=== PATIENT | female | born 1950 | race Caucasian/White ===

== ENCOUNTER 2024-11-16 19:28 | Emergency (ER) | payer MEDICARE, SELFPAY ==
[2024-11-16] VITALS (12 sets, daily range): BP systolic 58–113; BP diastolic 35–62; PULSE 0–103; RESP 18; TEMP 35.9; O2SAT 90–100
--- NOTE | ~2024-11-16 | CT_ITS ---
EXAMINATION: CT brain wo con DATE: 11/16/2024 21:47 INDICATION: CARDIAC ARREST . TECHNIQUE: Computed tomography (CT) of the head was performed without intravenous contrast. The mA wa s adjusted according to patient size. Iterative reconstruction technique was employed. The dose-lengt h product was 605.33 mGy-cm. COMPARISON: None. FINDINGS: No acute intracranial hemorrhage or extra-axial fluid collection. No hydrocephalus, mass, or herniation. No acute ischemic infarct. Unremarkable dural venous sinus attenuation. No acute osseous abnormality. The aerated spaces are clear. Atherosclerotic intracranial calcifications. Mild chronic white matter change. IMPRESSION: No acute intracranial process. Reviewed, dictated and finalized at location K. SELING PSYCHOLOGIST
--- NOTE | ~2024-11-16 | CT_ITS ---
EXAMINATION: CTA chest PE protocol DATE: 11/16/2024 21:47 INDICATION: CARDIAC ARREST TECHNIQUE: Computed tomography angiography (CTA) of the chest was performed with 100 mL Omnipaque-350 intravenous contrast timed to evaluate the pulmonary arteries. Coronal maximum intensity projection 3D-reconstructions were created by the technologist. The dose-length product (DLP) was 456.55 mGy-cm. Automated exposure control and iterative reconstruction technique were employed. COMPARISON: X-ray chest, same date. FINDINGS: Lung parenchyma and airways: Interlobular septal thickening. Patchy segmental areas of groundglass an d consolidative opacities in the dependent lobes. Pleura: Unremarkable. Thoracic inlet, axillae and chest wall: Endotracheal tube, terminating 2.5 cm above the giovanni. Thoracic aorta: No significant dilation. No dissection. Mediastinum: Diffuse esophageal wall thickening. Heart and pericardium: Normal. RV LV ratio 1.2. Coronary artery calcifications: Mild. Upper abdomen: Perihepatic fluid. Pneumoperitoneum. Pneumobilia. Subdiaphragmatic NG tube, tip not in the [id number]. Bones: Nondisplaced sternal body fracture. Multiple bilateral nondisplaced or minimally displaced, mi ldly angulated anterior lateral rib fractures. Pulmonary arteries: Study quality: Adequate. Small nonocclusive subsegmental right lower lobe emboli. IMPRESSION: Multiple small subsegmental right lower lobe pulmonary emboli. Small clot burden. RV LV ratio of 1.2 indicating an element of right heart strain. Moderate pulmonary edema with bilateral dependent atelectasis. Infection/aspiration not excluded. Diffuse esophageal wall thickening. Nondisplaced sternal body fracture. Multiple bilateral anterolateral rib fractures. Pneumoperitoneum, pneumobilia, and perihepatic fluid, please refer to the report on the concurrent CT abdomen and pelvis for additional details. Reviewed, dictated and finalized at location K. ICER MACHINE IMPRESSION: Multiple small subsegmental right lower lobe pulmonary emboli. Small clot burde n. RV LV ratio of 1.2 indicating an element of right heart strain. Moderate pulmonary edema with bilateral dependent atelectasis. Infection/aspira tion not excluded. Diffuse esophageal wall thickening. Nondisplaced sternal body fracture. Multiple bilateral anterolateral rib fractu res. Pneumoperitoneum, pneumobilia, and perihepatic fluid, please refer to the repor t on the concurrent CT abdomen and pelvis for additional details.
--- NOTE | ~2024-11-16 | XR_ITS ---
EXAMINATION: XR chest ET placement Exam Date/Time: 11/16/2024 19:52 AIRPLANE TESTER HISTORY: ET PLACEMENT Comparison: X-ray RIBS 05/13/2019; two-view chest 11/25/2018. RESULT: Lines, tubes, and devices: Endotracheal tube, terminating 3.1 cm above the giovanni. Subdiaphragmatic NG tube, tip projects out of the [id number]. Cholecystectomy clips. Right subclavian central line, tip at the cavoatrial junction. Lungs and pleura: Diffuse reticular opacities with patchy groundglass opacities and indistinct vesse ls. Cardiomediastinal silhouette: Stable. Other: No acute osseous or upper abdominal finding. IMPRESSION: Endotracheal tube terminates 3.1 cm above the giovanni. Subdiaphragmatic NG tube. Right subclavian cent ral line, in good position. Moderate interstitial edema. Reviewed, dictated and finalized at location K. LANE TESTER IMPRESSION: Endotracheal tube terminates 3.1 cm above the giovanni. Subdiaphragmatic NG tube. Right subclavian central line, in good position. Moderate interstitial edema.
--- NOTE | ~2024-11-16 | CT_ITS ---
EXAMINATION: CT abdomen pelvis w con DATE: 11/16/2024 22:00 INDICATION: gastric content abnormal TECHNIQUE: Computed tomography (CT) of the abdomen and pelvis was performed with 100 mL Omnipaque-350 intravenous contrast. Automated exposure control and iterative reconstruction technique were employe d. The dose-length product was 588.81 mGy-cm. COMPARISON: CT abdomen 05/16/2004. FINDINGS: Lower thorax: Moderate edema/atelectasis. Liver: Small volume perihepatic fluid. Irregular peripheral hypodensities along the superficial right liver lobe measuring up to 11 mm in thickness. Biliary/Gallbladder: Gallbladder is absent. No bile duct dilation. Pancreas: No mass or duct dilation. Spleen: Diffusely hypoenhancing spleen. Adrenals:No mass. Kidneys: No suspicious mass, obstructing stone, or hydronephrosis. Simple left renal cyst. Multiple h ypodensities that are too small to characterize but most likely represent cysts. GI tract: NG tube terminating in the gastric body. Proximal small bowel dilation without focal transi tion point. Pneumatosis. Interloop fluid. Portal venous gas. Diffusely decreased small bowel wall enh ancement. Focal defect in the wall of the distal sigmoid, with spillage of fecal content into the per itoneal cavity (image 134/222) Normal appendix. Diverticulosis without diverticulitis. Mesentery/Peritoneum: Moderate volume pneumoperitoneum. Fecal material and fluid within the peritonea l cavity. Retroperitoneum: No mass. Atherosclerotic calcifications of intra-abdominal arterial vessels. Pelvis: Urinary bladder decompressed by a Granados catheter.. Soft Tissues: Small periumbilical anterior abdominal wall hernia containing mesenteric fat and focal gas. Bones: Multiple bilateral anterolateral rib fractures. IMPRESSION: Grade 2 liver lacerations along the anterior surface of the right liver lobe, presumably secondary to CPR and adjacent rib fractures, with small volume adjacent perihepatic hemorrhage. Diffuse splenic hypoenhancement, may reflect a component of diffuse ischemia or infarction. Diffuse small bowel ischemia. Distal sigmoid rupture with spillage of feculent content into the peritoneal cavity and moderate pneu moperitoneum. Reviewed, dictated and finalized at location [facility]. [facility] IMPRESSION: Grade 2 liver lacerations along the anterior surface of the right liver lobe, p resumably secondary to CPR and adjacent rib fractures, with small volume adjace nt perihepatic hemorrhage. Diffuse splenic hypoenhancement, may reflect a component of diffuse ischemia or infarction. Diffuse small bowel ischemia. Distal sigmoid rupture with spillage of feculent content into the peritoneal ca vity and moderate pneumoperitoneum.
--- NOTE | 2024-11-16 20:04 | ECG_ITS ---
Test Date: 2024-11-16 19:54:45 Measurements Intervals [place] Rate: 137 P: 0 MO: 0 QRS: -77 QRSD: 142 T: 79 QT: 322 QTc: 488 Interpretive Statements ATRIAL FIBRILLATION WITH RAPID VENTRICULAR RESPONSE LEFT AXIS DEVIATION RIGHT BUNDLE BRANCH BLOCK CONSIDER INFERIOR INFARCT, AGE INDETERMINATE CONSIDER LATERAL INFARCT, AGE INDETERMINATE ABNORMAL ECG No previous ECG available for comparison Electronically Signed On 11-17-2024 06:46:37 EMPLOYEE PLACEMENT SPECIALIST by Cayetano Lake D.O.
[2024-11-16] MEDS: SODIUM CHLORIDE 0.9% IV 1,000 ML 999 ML IV CONT ×2 (20:10→23:09)
[2024-11-16 20:16] LABS: Alveolar/Arterial O2 Gradient 542.3 mmHg; Base Excess ABG -26.2 mEq/l (+/-2.0); Carboxyhemoglobin 3.3 % THb (0-2.0); Fractional Inspired Oxygen 100 %; HCO3 ABG 6.3 mEq/l (22.0-26.0); Oxygen Content ABG 13.6 %vol (16.0-22.0); Oxygen Saturation ABG 95.9 % (95.0-100.0); Oxyhemoglobin 90.9 % THb (90.0-100.0); PO2 ABG 134.7 mmHg (80.0-100.0); PO2 FiO2 Ratio Arterial Blood 1.35 %; Reduced Hemoglobin 5.8 %THb (0-5.0); Total Hemoglobin 10.4 g/dL (12.0-18.0)
[2024-11-16 20:18] LABS: Arterial Blood Gas Vent Mode CMV; Arterial Blood Gas Ventilator rate 20 /MIN; Device VENTILATOR; Modified Allen's Test Pass; Site Drawn RIGHT RADIAL; pH ABG 6.861 (7.350-7.450)
[2024-11-16 20:19] LABS: Arterial Blood Gas PEEP 5 cmH2O; Arterial Blood Gas Tidal Volume 400 ml
[2024-11-16 20:22] LABS: Hematocrit 37.4 % (37.0-47.0); Hemoglobin 11.3 g/dL (12.0-15.0); Mean Corpuscular HGB Conc 30.2 g/dl (32-36); Mean Corpuscular Hemoglobin 33.2 pg (26-34); Mean Platelet Volume 10.2 fl (7.4-10.4); Platelet Count Result 143 k/mm3 (150-375); Red Cell Distribution Width 14.4 % (11.5-14.5); White Blood Count 10.3 K/mm3 (4.5-10.0)
[2024-11-16 20:35] LABS: INR 1.6; Prothrombin Time 19.6 Seconds (11.1-14.7)
[2024-11-16 20:37] LABS: Partial Thromboplastin Time 68.6 Seconds (22.3-36.8)
[2024-11-16 20:51] LABS: Alanine Aminotransferase 47 U/L (6-35); Albumin Level 2.3 g/dL (3.5-5.1); Alkaline Phosphatase 80 U/L (38-126); Anion Gap 35 mmol/L (4-12); Aspartate Amino Transferase 110 U/L (14-36); Blood Urea Nitrogen 36 mg/dL (7-17); Carbon Dioxide 13 mmol/L (22-30); Chloride 93 mmol/L (98-107); Estimated Glomerular Filt Rate 22; Glucose 622 mg/dL (65-110); Lipase 24 U/L (23-300); Potassium 6.3 mmol/L (3.4-5.0); Sodium 141 mmol/L (137-145)
[2024-11-16 20:54] LABS: Band Neutrophils Percent 29 % (0-6); Lymphocytes Absolute Manual 4.01 K/mm3 (1.1-4.5); Metamyelocytes Percent 4 %; Monocytes Absolute Manual 0.51 K/mm3 (0.1-0.90); Monocytes Percent Manual 5 % (3-9); Myelocytes Percent 2 %; Neutrophils Absolute Manual 5.15 K/mm3 (1.7-7.2); Neutrophils Percent Manual 21 % (46-73); Nucleated Red Blood Cells 3 %; Platelet Estimate Slightly Decreased (Adequate); Total Cells Counted 100
[2024-11-16 20:55] LABS: Hypochromasia 1+; Schistocytes None Seen
[2024-11-16 20:57] LABS: Troponin I 0.176 ng/mL (0.000-0.034)
--- NOTE | 2024-11-16 21:02 | ED.CPR ---
HPI - CPR General Chief Complaint: Cardiac Arrest/CPR Stated Complaint: cardiac arrest Time Seen by Provider: 11/16/24 20:52 History of Present Illness HPI narrative: 74-year-old female with a past medical history including lupus, hypertension. Patient presents in cardiac arrest. Witnessed cardiac arrest as family members were calling EMS for difficulty in breathing, generalized malaise, decreased appetite some nauseousness throughout the day. EMS arrived and patient was conversing with them and then during transition to the stretcher she had lost pulses and consciousness. Patient arrives approximately 5 minutes after initiation of CPR with EMS transit. Patient was placed in the room 8 for medical resuscitation at this time. Family members arrive after an hour and a half for collateral information and informed me that she has not been feeling well these past few days, having flu-like illness and decreased oral intake and appetite. Patient's complaint of shortness of breath today. No history of DVT or PE, no history of cardiac stents or cardiac events to the family's knowledge. They do not have her medication list and she has never been to this facility before. Review of Systems Review of Systems: ROS unobtainable: Yes unobtainable due to medical condition Exam Narrative: GENERAL: Comatose HEAD: [Normocephalic, atraumatic.] EYES: Pupils 3 mm, fixed, conjunctival pallor noted ENT: Oropharynx with diffuse vomitus, dark coffee-ground/brown material. CHEST: Coarse breath sounds with BVM, no spontaneous respiratory effort HEART: No pulse, cold extremities ABDOMEN: [Soft, nondistended] EXTREMITIES: Normal range of motion. [No edema.] SKIN: Cool extremities with mottling to the skin and dusky fingers NEURO: GCS 3 Course Vital Signs Vital signs: Vital Signs Pulse Oximetry 90 11/16/24 19:30 Oxygen Delivery Bag Valve Mask 11/16/24 19:30 Temperature 35.9 C L 11/16/24 22:48 Pulse Rate 0 L 11/17/24 00:06 Respiratory Rate 18 11/16/24 22:48 Blood Pressure 94/59 L 11/16/24 23:00 Pulse Oximetry 0 L 11/17/24 00:09 Oxygen Delivery Room Air 11/17/24 00:09 Procedures ABG Interpretation ABG Interpretation 1: ABG Results: PH 6.8, pCO2 36, bicarb 6.3, PaO2 of 134. Final interpretation metabolic acidosis, and efficient compensation with respiratory drive Interpretation: metabolic acidosis Arterial Line Arterial line #1: Date of Arterial Line: 11/16/24 Time of Arterial Line: 20:35 Arterial Line Location: radial and right Perfomed Emergently - Given emergent patient conditions, temporal constraints may have precluded informed consent: Yes Time Out Performed: Yes Size (Gauge): 20 Technique Used: direct puncture technique Post-Procedure: line sutured into place and dry sterile dressing placed Patient Tolerated Procedure: well and no complications Complications: none Central Line Placement Right SC: Central Line Date: 11/16/24 Central Line Time: 19:35 Performed Emergently - Given emergent patient condition, temporal constraints may have precluded informed consent.: Yes Time Out Performed: Yes Patient Placed on Monitor/Pulse Ox: Yes Max. Sterile Barrier Technique: hand hygiene Central Line Prep: 2% chlorhexidine scrub Emergently Placed, Full Sterile: prep not done Technique: seldinger Local Anesthetic: none Ultrasound Used for Placement: No Central Line Lumen Inserted: triple Post Procedure: sutured in place, good blood return, all ports aspirated, flushed, capped and sterile dressing applied Post Procedure X-Ray: tip of catheter in good position and no pneumothorax seen Patient Tolerated Procedure: well and no complications Complications: none FAST Exam FAST Exam 1: Fast Exam Date: 11/16/24 Fast Exam Time: 20:40 Fluid in Morison's pouch: No Fluid in Splenorenal Junction: No Fluid around bladder, Transverse view: No Fluid around bladder, Sagittal view: No Fluid in Pericardial Sac: Yes (mild) Gross Wall Motion Abnormality: Yes (Diffuse hypokinetics) Study normal for this patient: No Images saved for further review: No Intubation Intubation #1: Intubation Date: 11/16/24 Intubation Time: 19:25 Time out performed: Yes sedative: none Mg Given: 0 Mg Given: 0 Laryngoscope: fiber optic video scope Tube Size (cm): 7.5 Method of Intubation: orotracheal Number of Attempts: 1 Tube Secured Depth (cm): 21 Tube Secured Location: lips Tube Placement Confirmation: visualized tube passing through cords, equal breath sounds bilaterally, no breath sounds over epigastrium and confirmation by capnometry Patient Tolerated Procedure: well and no complications Intubation Complications: none Additional Comments: Patient had gross amounts of vomitus in the airway and aspirate. Salad technique utilized for decompression of the oropharynx and stomach contents with return of greater than 500 dark coffee-ground looking material/vomitus from both the esophagus and in the trachea. Successful intubation after 1st pass success after visualization achieved. IO Left Tibia: IO Date: 11/16/24 IO Time: 19:30 Time Out Performed: Yes Local Anesthetic: none IO Instrument Used to Penetrate the Cortex: battery powered IO drill Post Procedure: aspirated marrow, easily flushes and secured in place Patient Tolerated Procedure: well and no complications Complications: none Right Tibia: IO Date: 11/16/24 IO Time: 19:28 Time Out Performed: Yes Local Anesthetic: none IO Instrument Used to Penetrate the Cortex: battery powered IO drill Post Procedure: easily flushes and secured in place Patient Tolerated Procedure: other (Dislodged and malfunctioning after initial flush) Complications: non-functional line Additional Comments: Line removed and left side IO placed MDM - Cardiac Arrest/CPR MDM Narrative Medical decision making narrative: 74-year-old female with history of hypertension and lupus presenting in cardiac arrest. Area was established with 1st pass success after diffuse vomitus is noted the posterior oropharynx, patient is in asystole and initial rhythm per EMS was PE a. No medications administered in route. Patient arrived at 7:24 p.m., airway secured at 7:25 p.m., IV access was difficult to obtain, multiple IO attempts and then final placement to a left tibial IO with epinephrine infused at 7:30 p.m.. Bicarbonate infused 193. First pulse check shows PE. Central line placed in the right subclavian vessel, 2 additional rounds of epinephrine and high quality CPR shows pulseless electrical activity followed by asystole on repeat check. Two rounds of bicarbonate infusion were placed an additional 2 rounds of epinephrine followed by serial pulse check showing asystole. Patient achieved Rosc at 7:50 p.m. after approximately 28 minutes of continuous CPR from the time of witnessed cardiac arrest via EMS. Initial blood pressure of 101/62, tachycardia in the 130s with sinus tachycardia versus atrial fibrillation on the monitor and EKG. No elevations in the ST segments or concern for acute STEMI. Patient's blood pressure began down trending into the low 60 systolic followed by 40 systolic, norepinephrine was started on max dose of 30 micrograms/minute followed by initiation of push dose epinephrine a total of and 1 mg serially with improvement in blood pressure into the upper 80s systolic. ABG obtained at this time shows severe metabolic acidosis the pH is 6.8 likely indicate of of severe metabolic derangements and lactic acidosis and profound hypoxemia and down time. Also explains why multiple vasopressors are not working at this time. Arterial line placed into the right radial artery, bicarb infusion started after 5 total pushes of bicarbonate with improvement in blood pressure into the low 100 systolic range with maps of 65. Currently on max dose norepinephrine, on vasopressor 0.03 and epinephrine going at 10 micrograms/minute. Patient had received 2 L of normal saline. Antibiotics started to cover aspiration and potential pneumonia including Rocephin and doxycycline. CTA of the head and CT angiography of the chest was ordered for delineation of potential causes to her cardiac arrest. X-ray was called to bedside and I independently reviewed the x-ray to assess for line placement and pulmonary status. She has a successfully placed subclavian vessel line in the right subclavian, appropriately placed endotracheal tube with giovanni approximately 3 cm distal to the tip, appropriate OG tube placed in the stomach. I spoke to multiple family members in the family waiting room, spent greater than 20 minutes with them discussing and informing them of patient's presentation, current status and grave prognosis as well as currently being on maximal support vasopressors and vent. Nurses report the patient is starting to wake up slightly so fentanyl infusion was started for sedation while workup underway. ICU staff has been contacted and made aware of the impending admission pending completion of workup. Patient's workup shows a leukocytosis of 10.3, anemia of 11.3, platelet 143. No baseline for comparison blood gas shows severe metabolic acidosis with a pH 6.8. Electrolyte panel shows renal failure with a BUN of 35 creatinine 2.4, potassium 4.6, glucose of 370, ALT and AST elevated. Elevated troponin 0.176 likely demand ischemia rather than occlusive ME. CT of the head shows no acute intracranial process. CTA shows subsegmental right lower lobe pulmonary emboli and small clot burden with elevated heart strain. Pulmonary edema, aspiration, esophagitis, sternal body fracture and multiple bilateral anterior rib fractures consistent with the CPR. Pneumoperitoneum pneumobilia as well as perihepatic fluid seen. Radiologist called me and I discussed the CT abdomen pelvis results with them over the phone. She has a grade 2 liver laceration with blood volume in the abdomen associated with perihepatic hemorrhage. Diffuse splenic hypoattenuation likely diffuse ischemia and infarct, diffuse small-bowel ischemia, distal sigmoid rupture with spillage of fecal content into the peritoneal cavity with pneumoperitoneum. Based on the discussion had with the radiologist the ischemia appears old and likely the precipitating factor that led to her presentation with likely profound sepsis from intra-abdominal infection and bowel content. I reached out to the family members who had since left the hospital to go home. I had extensive discussions with them over the phone to come back to the hospital as we have to have luis f discussions on goals of care at this juncture. Additional family members have since presented I spoke to the son, daughter, granddaughter and siblings. I discussed the CT findings as well as her clinical examination is status presently. Patient is on maximum dose of vasopressors of epinephrine, norepinephrine, vasopressin and also receiving fluids and antibiotics as well as a bicarbonate infusion. She is on mechanical ventilation and comatose. Based on patient's CT imaging, clinical assessment, and extensive injuries, continued aggressive care is deemed futile at this juncture. I relayed this to the family and had luis f discussions about goals of care. They wish for patient not to suffer any further and agreeable for withdrawal of care at this time. Respiratory therapy was called to bedside, nursing staff was called to bedside, family members have joined us and wished to proceed with terminal extubation and wean. Patient was given aliquots of 5 mg doses of morphine and 2 mg aliquots doses of Ativan as well as glycopyrrolate. Drips stopped. ETT removed and pt placed on nasal cannula. Patient's time of 12:09am with family members at bedside. Hydrochloric Acid Operator was called, PCP was attempted to be reached for certificate signing, home was selected. Medical Records Attestation: I reviewed the patient's medical records. Lab Data Attestation: I reviewed the patient's lab results. 11/16/24 20:08 11/16/24 20:57 Labs: Lab Results 11/16/24 11/16/24 11/16/24 Range/Units 20:08 20:13 20:57 WBC 10.3 H (4.5-10.0) K/mm3 RBC 3.40 L (4.2-5.4) M/mm3 Hgb 11.3 L (12.0-15.0) g/dL Hct 37.4 (37.0-47.0) % MCV 110.0 H (80-100) fl MCH 33.2 (26-34) pg MCHC 30.2 L (32-36) g/dl RDW 14.4 (11.5-14.5) % Plt Count 143 L (150-375) k/mm3 MPV 10.2 (7.4-10.4) fl Immature Gran % (Auto) Not Reportable Neut % (Auto) Not Reportable Lymph % (Auto) Not Reportable Ritchie % (Auto) Not Reportable Eos % (Auto) Not Reportable Baso % (Auto) Not Reportable Lymph # (Auto) Not Reportable Ritchie # (Auto) Not Reportable Eos # (Auto) Not Reportable Baso # (Auto) Not Reportable Abs Immat Gran (auto) Not Reportable Absolute Neuts (auto) Not Reportable Absolute Nucleated RBC Not Reportable Total Counted 100 Neutrophils % (Manual) 21 L (46-73) % Band Neutrophils % 29 H (0-6) % Lymphocytes % (Manual) 39.0 (18-44) % Monocytes % (Manual) 5 (3-9) % Metamyelocytes % 4 % Myelocytes % 2 % Nucleated RBC % Not Reportable Abs Neuts (Manual) 5.15 (1.7-7.2) K/mm3 Abs Lymphs (Manual) 4.01 (1.1-4.5) K/mm3 Abs Monocytes (Manual) 0.51 (0.1-0.90) K/mm3 Nucleated RBCs 3 % Platelet Estimate Slightly decreased (Adequate) Hypochromasia 1+ Schistocytes None seen PT 19.6 H (11.1-14.7) Seconds INR 1.6 APTT 68.6 H (22.3-36.8) Seconds Methemoglobin 0.0 (0-1.5) %THb Minute Volume Not Reportable Vent Mode Cmv Tidal Volume 400 ml PEEP 5 cmH2O Peak Inspir Pressure Not Reportable Pressure Support Not Reportable Sodium 141 144 (137-145) mmol/L Potassium 6.3 H* 4.6 (3.4-5.0) mmol/L Chloride 93 L 99 (98-107) mmol/L Carbon Dioxide 13 L 10 L (22-30) mmol/L Anion Gap 35 H 35 H (4-12) mmol/L BUN 36 H 35 H (7-17) mg/dL Creatinine 2.17 H 2.40 H (0.7-1.0) mg/dL Estim Creat Clear Calc Not Reportable Not Reportable Estimated GFR 22 L 20 L (59 - ) Glucose 622 H* 370 H (65-110) mg/dL Calcium 8.0 L 6.8 L (8.4-10.2) mg/dL Total Bilirubin 1.0 0.9 (0.2-1.3) mg/dL AST 110 H 873 H (14-36) U/L ALT 47 H 273 H (6-35) U/L Alkaline Phosphatase 80 82 (38-126) U/L Troponin I 0.176 H* (0.000-0.034) ng/mL Total Protein 5.0 L 4.0 L (6.3-8.2) g/dL Albumin 2.3 L 1.8 L (3.5-5.1) g/dL Lipase 24 (23-300) U/L Blood Type A Positive Antibody Screen Negative ABG Data ABG results: 11/16/24 20:13 Puncture Site Right radial ABG pH 6.861 L* ABG pCO2 36.0 ABG pO2 134.7 H ABG PO2/FiO2 Ratio 1.35 ABG HCO3 6.3 L ABG O2 Saturation 95.9 ABG O2 Content 13.6 L ABG Base Excess -26.2 A-a Gradient 542.3 Oxyhemoglobin 90.9 Carboxyhemoglobin 3.3 H Reduced Hemoglobin 5.8 H Total Hemoglobin 10.4 L O2 Delivery Device Ventilator O2 Liters/Min Not Reportable Vent Rate 20 FiO2 100 Attestation: I personally reviewed and interpreted this ABG as follows: Interpretation: Acute metabolic acidosis with incomplete compensation Imaging Data Attestation: I personally reviewed and interpreted this imaging study as follows: My impression: Impressions Chest X-Ray 11/16/24 20:26 IMPRESSION: Endotracheal tube terminates 3.1 cm above the giovanni. Subdiaphragmatic NG tube. Right subclavian central line, in good position. Moderate interstitial edema. Head CT 11/16/24 21:48 IMPRESSION: No acute intracranial process. Chest CTA 11/16/24 21:50 IMPRESSION: Multiple small subsegmental right lower lobe pulmonary emboli. Small clot burden. RV LV ratio of 1.2 indicating an element of right heart strain. Moderate pulmonary edema with bilateral dependent atelectasis. Infection/aspiration not excluded. Diffuse esophageal wall thickening. Nondisplaced sternal body fracture. Multiple bilateral anterolateral rib fractures. Pneumoperitoneum, pneumobilia, and perihepatic fluid, please refer to the report on the concurrent CT abdomen and pelvis for additional details. Abdomen/Pelvis CT 11/16/24 22:02 IMPRESSION: Grade 2 liver lacerations along the anterior surface of the right liver lobe, presumably secondary to CPR and adjacent rib fractures, with small volume adjacent perihepatic hemorrhage. Diffuse splenic hypoenhancement, may reflect a component of diffuse ischemia or infarction. Diffuse small bowel ischemia. Distal sigmoid rupture with spillage of feculent content into the peritoneal cavity and moderate pneumoperitoneum. Critical Care Time Critical Care Time Critical Care Time: Yes Total Critical Care Time: 135 (Critical care time is exclusive of any separately billed procedures as described above in the documentation) Discharge Plan Discharge Clinical Impression: Cardiac arrest, Rupture of bowel, Small bowel ischemia, Traumatic hemoperitoneum, Liver laceration, grade II, without open wound into cavity, Splenic infarction, Pulmonary embolism and infarction, Aspiration into airway, Septic shock, Sternal fracture, Multiple fractures of ribs, Fracture of multiple ribs due to CPR Patient Disposition: Condition: Patient Language: Nigerien Follow-up/Referrals: PHYSICIAN,SALES REPRESENTATIVE SALES MANAGER [Primary Care Provider] - Time of Disposition: 00:09
[2024-11-16] MEDS: VASOPRESSIN INJ 100 UNITS in DEXTROSE 5% 95 ML IV CONT (21:07)
--- NOTE | 2024-11-16 21:12 | ECG_ITS ---
Test Date: 2024-11-16 21:16:51 Measurements Intervals [place] Rate: 97 P: 23 HI: 128 QRS: -77 QRSD: 125 T: 67 QT: 367 QTc: 467 Interpretive Statements SINUS RHYTHM RIGHT BUNDLE BRANCH BLOCK LEFT ANTERIOR FASCICULAR BLOCK ABNORMAL ECG Compared to ECG 11/16/2024 19:54:45 Atrial fibrillation no longer present Electronically Signed On 11-17-2024 06:46:56 OFFBEARER by Cayetano Lake D.O.
--- OUTSIDE RECORDS SUMMARY | 2024-11-16 21:34 | XMS_ITS | Clinical Summary ---
Author Organization [facility] Address [facility] [place] [address] Care Team Providers Care Plastics Plater Name Role Phone Purnima Rosario Primary Care Provider [phone] Allergies Active Allergy Reactions Criticality Noted Date Comments Amlodipine Unknown 01/27/2019 Severe hypotension Meperidine Other (see comment) 10/03/2020 Hypotension Phenytoin Other (see comment) 10/03/2020 thrombocytopenia Fluvastatin Unknown 01/27/2019 Muscle aches Metoprolol Unknown 01/27/2019 Severe hypotension Propranolol Unknown 01/27/2019 Severe hypotension Quinine Other (see comment) 10/03/2020 thrombocytopenia Simvastatin Unknown 01/27/2019 Muscle aches Medications levothyroxine 112 MCG tablet Take 112 mcg by mouth every morning. Active simvastatin 20 MG tablet Take 20 mg by mouth nightly at bedtime. Active allopurinol 300 MG tablet Take 300 mg by mouth daily. Active esomeprazole 40 MG capsule Take 40 mg by mouth every morning before breakfast. Active vitamin E 400 UNIT capsule Take 400 Units by mouth daily. Active vitamin D3, cholecalciferol , 1000 UNIT Tab tablet Take 1 tablet by mouth daily. Active magnesium oxide 400 (241.3 Mg) MG tablet Take 400 mg by mouth 2 (two) times daily. Active probiotic capsule Take 1 capsule by mouth 3 (three) times daily with meals. Active vitamin B-12 100 MCG tablet Take 50 mcg by mouth daily. Active linaCLOtide 290 MCG capsule Take 70 mcg by mouth every morning before breakfast. Take on empty stomach at least 30 minutes prior to first meal of the day. Swallow whole. Do not open capsule or chew. Active Blood Glucose Monitoring Suppl (FIFTY50 GLUCOSE METER 2.0) w/Device Kit 1 each daily. 08/17/2020 Active Lancets Misc Check once daily 08/17/2020 Active potassium chloride CR 10 MEQ tablet 09/01/2020 Active Family History Medical History Relation Comments Cancer Father Heart Disease Mother Relation Status Comments Father Mother Social History Tobacco Use Types Packs/Day Years Used Date Smoking Tobacco: Never Smokeless Tobacco: Never Alcohol Use Standard Drinks/Week Comments Never 0 (1 standard drink = 0.6 oz pur e alcohol) AUDIT-C Answer Date Recorded Q1: How often do you have a drink containing alc ohol? Never 10/03/2020 Average Number of Drinks Not on file 021 Frequency of Binge Drinking Not on file 09/23 Comments No Sex and Gender Information Value Date Recorded Sex Assigned at Not on file Legal Sex Female 4:17 PM CDT Gender Identity Not on file Sexual Orientation Not on file Last Filed Vital Signs Vital Sign Reading Time Taken Comments Blood Pressure 126/79 10/07/2020 11:20 AM V BELT BUILDER Pulse 71 10/07/2020 11:20 AM V BELT BUILDER Temperature 36.1 C (97 F) 10/07/2020 10:52 AM V BELT BUILDER Respiratory Rate 18 10/07/2020 11:20 AM V BELT BUILDER Oxygen Saturation 97% 10/07/2020 11:20 AM V BELT BUILDER Inhaled Oxygen Concentration - - Weight 83.5 kg (184 lb) 10/03/2020 1:09 PM V BELT BUILDER Height 157.5 cm (5' 2 ) 10/03/2020 1:09 PM V BELT BUILDER Body Mass Index 33.65 10/03/2020 1:09 PM V BELT BUILDER Plan of Treatment Health Maintenance Due Date Last Done Comments Hepatitis C 1968 Zoster Vaccines (1 of 2) 1999 Annual Medicare Wellness Visit 2014 Dexa Scan (General) 2014 Pneumococcal Vaccine: 65+ Years (3 of 3 - PPSV23 or PCV20) 04/16/2022 04/16/2017, 09/22/2011 COVID-19 Vaccine (2 - 2023-2 5 season) 2024 09/09/2020 Influenza Adult (#1) 2024 06/23/2020, 07/23/2019 RSV Immunization or 60+ Years (1 - 1-dose 75+ series) 2024 DTaP, Tdap and Td Vaccines ( 2 - Td or Tdap) 04/03/2026 04/03/2016 Colorectal Cancer Screening Colonoscopy (10 Years) 10/07/2030 10/07/2020, 10/07/2020 EGD-Miramontes's Surveillance Discontinued 10/07/2020 Meningococcal B Vaccine Aged Out No l onger eligible based on patient's age to complete this topic Meningococcal Vaccine Aged Out No fito mary eligible based on patient's age to complete this topic RSV Immunizations Under 20 Months Aged Out No longer eligible based on patient's age to complete this topic Medical Devices Implanted Type Area De Icer Device Identifier Shelf Expiration Date Model / Serial / Lot Knee Knee Procedures Procedure Name Priority Date/Time Associated Diagnosis Comments COLONOSCOPY Routine 10/07/2020 10:38 AM V BELT BUILDER EGD Routine 10/07/2020 10:07 AM V BELT BUILDER from Last 3 Months or Most Recently Relevant to Health Maintenance Results * Colonoscopy (10/07/2020 10:38 AM V BELT BUILDER) Narrative Procedure Note Messi Hummel MD - 10/07/2020 10:38 AM CST MESSI HUMMEL MD COLONOSCOPY INDICATION: Screening for colon cancer. Hx of colonic polyps POST-OP: Severe sigmoid diverticulosis with mild fixation and narrowing SEDATION: Per Anesthesia PREP: Good. With the patient in the left lateral decubitus position, the [id number] colonoscope was introduced into the rectum and advanced easilyto the Terminal Ileum/cecum identified by ileocecal valve, appendicealorifice and cecal strap. Careful inspection of the mucosa was made uponinsertion and withdrawal of the endoscope. FINDINGS: Terminal ileum: distal 5 cm normal. Cecum, ascending colon, transversecolon, descending colon, sigmoid colon and rectum including retroflexionnormal. No masses, polyps, AVMs, or colitis seen. Severe sigmoid diverticulosis with fixation and mild narrowing No complications, blood loss or implants. ASSESSMENT AND PLAN: No polyps seen. F/U in 5 yrs secondary to hx of polyps. Hematochezia: - Likely secondary to External hemorrhoids hemorrhoids not seen onendoscopy - Treat symptomatically Severe diverticulosis: Diverticular diet Thank you for allowing me to care for your patient. Patient will follow-upwith PMD as needed. Call our office for tissue results in 2 weeks F/Ucolonoscopy in 5 yrs. Secondary to hx of polyps Messi Hummel M.D. us Messi Hummel MD GI PROCEDURE ORDERA BLES Final Result * EGD (10/07/2020 10:07 AM V BELT BUILDER) Narrative Procedure Note Messi Hummel MD - 10/07/2020 10:07 AM CST MESSI HUMMEL MD UPPER ENDOSCOPY INDICATION: GERD / Hx of Miramontes's. No dysphagia. Last EGD 4-5 yrs ago,by Dr. Gonzalez POST-OP: Chronic, non-erosive gastritis. Biopsies done. Esophagus wasnormal no endoscopic evidence of Miramontes's - Bx's taken SEDATION: Per anesthesia With the patient in the left lateral decubitus position, the [id number] upper endoscope was used to easily intubate the patient s esophagus and advanced to the third portion of the duodenum. Carefulinspection of the mucosa was made upon insertion and withdrawal of theendoscope with retroflexion in the stomach. FINDINGS: Esophagus: SC Jx @ 40 cm. Esophagus is normal. No esophagitis, stricture,mass or Miramontes s . - Biopsies taken Stomach: Mild diffuse erythema and edema consistent with chronic,non-erosive gastritis; biopsies taken throughout the stomach. Noulceration, erosion, inflammation, AVM or malignancy. Duodenum: Normal in the bulb, second and third portion. No complications, blood loss or implants. ASSESSMENT AND PLAN: A. GERD: - Stable on meds; continue - No esophagitis or Miramontes s - bx B. Chronic, non-erosive gastritis: - Biopsies done - If H. pylori positive will treat Thank you for allowing me to care for your patient. Patient will follow-upwith PMD as needed. Call our office in 2 weeks for tissue results.Conitnue anti reflux measures and Nexium 40 mg daily. Messi Hummel M.D. us Messi Hummel MD GI PROCEDURE ORDERA BLES Final Result from Last 3 Months or Most Recently Relevant to Health Maintenance Insurance [employer] Care Teams Plastics Plater Relationship Specialty Start Date End Date Purnima Rosario PA [address] [facility] [address] [place] [address] PCP - General PHYSICIAN PHONE OPERATOR 10/05/20
--- OUTSIDE RECORDS SUMMARY | 2024-11-16 21:34 | XMS_ITS | Clinical Summary ---
Author Organization [facility] Address [address] [place] [address] Care Team Providers Care Chemistry Faculty Member Name Role Phone Unavailable Primary Care Provider Unavailabl e Encounters Date Type Department Care Team Description 11/11/2024 External Device Data STL ABSTRACTION Provider, Abstract 10/14/2024 External Device Data STL ABSTRACTION Provider, Abstract 10/14/2024 External Device Data STL ABSTRACTION Provider, Abstract from Last 3 Months Social History Tobacco Use Types Packs/Day Years Used Date Smoking Tobacco: Never Assessed Comments Unknown Sex and Gender Information Value Date Recorded Sex Assigned at Not on file Legal Sex Female 9:40 AM CDT Gender Identity Not on file Sexual Orientation Not on file Plan of Treatment Health Maintenance Due Date Last Done Comments FIT-DNA Q 3 years 1994 FIT/FOBT Q 1 year 1994 Flex Sig/CT Colonography Q 5 years 1994 ZOSTER VACCINE (1 of 2) 1999 PNEUMOCOCCAL VACCINE 65+ YEA RS (3 of 3 - PCV20 or PCV21) 04/16/2022 04/16/2017, 09/22/2011 INFLUENZA VACCINE (#1) 2024 07/23/2019 COVID-19 Vaccine ( - season) 2024 06/29/2022, 06/23/2022, 09/09/2020 RSV VACCINE (60+ or ) (1 - 1-dose 75+ series) 2024 DTAP/TDAP/TD VACCINES (2 - T d or Tdap) 04/03/2026 04/03/2016 COLORECTAL SCREENING 10/07/2030 10/07/2020 Colorectal Cancer Screening 10/07/2030 OSTEOPOROSIS SCREENING Completed 12/13/2023, 2023 Insurance Upside [facility]
--- OUTSIDE RECORDS SUMMARY | 2024-11-16 21:34 | XMS_ITS | Encounter Summary ---
Author Organization [facility] Care Team Providers Care Web Support Engineer Name Role Phone Purnima Rosario Primary Care Provider [phone] Niko Ledezma MD Unavailable [phone] Jose Iniguez MD Unavailable [phone] Jacque Pederson MA Unavailable [phone] Encounter Details Date Type Department Care Team (Latest Contact Info) Description 11/25/2018 Orders Only [facility] CLINCONV Provider, MD Garrett [address] [place] [id number] Social History Tobacco Use Types Packs/Day Years Used Date Smoking Tobacco: Never Assessed Comments Unknown Sex and Gender Information Value Date Recorded Sex Assigned at Not on file Legal Sex Female 10:59 PM WHOLESALE PARTS SALESPERSON Gender Identity Female 10/31/2020 11:38 AM WHOLESALE PARTS SALESPERSON Sexual Orientation Not on file documented as of this encounter Plan of Treatment Not on file documented as of this encounter Procedures Procedure Name Priority Date/Time Associated Diagnosis Comments CARDIOLOGY REPORT 11/25/2018 12: 00 AM WHOLESALE PARTS SALESPERSON documented in this encounter Results * CARDIOLOGY REPORT (11/25/2018 12:00 AM WHOLESALE PARTS SALESPERSON) Anatomical Region Laterality Modality Other Narrative 11/25/2018 12:00 AM WHOLESALE PARTS SALESPERSON Ordered by an unspecified provider. Historical Provider [facility] Final Result documented in this encounter Visit Diagnoses Not on filedocumented in this encounter Care Teams Web Support Engineer Relationship Specialty Start Date End Date Purnima Rosario PA [address] [facility] [address] [place] [address] PCP - General 11/27/18 Niko Ledezma MD [address] [place] [address] Consulting Physician Rheumatology 09/30/20 Jose Iniguez MD [address] [place] [address] Consulting Physician Family Medicine 10/23/24 Jacque Pederson MA [address] [place] [address] [address] [place] [address] ACO Care Fire Eater 11/06/24 11/09/24 documented as of this encounter
--- OUTSIDE RECORDS SUMMARY | 2024-11-16 21:34 | XMS_ITS | Encounter Summary ---
Author Organization [facility] Address [facility] [place] [address] Care Team Providers Care Resourcing Consultant Name Role Phone Purnima Rosario Primary Care Provider [phone] Encounter Details Date Type Department Care Team (Late st Contact Info) Description 10/03/2020 Prep for Procedure [facility] [address] Adin Hummel MD [address] [id number] Social History Tobacco Use Types Packs/Day Years [...] Binge Drinking Not on file 09/23 Comments Unknown Sex and Gender Information Value Date Recorded Sex Assigned at Not on file Legal Sex Female 4:17 PM CDT Gender Identity Not on file Sexual Orientation Not on file documented as of this encounter Plan of Treatment Not on file documented as of this encounter Results * PRE-SURGICAL/PRE-PROCEDURE CORONAVIRUS (COVID 19) (10/04/2020 11:30 AM C WINFORMS DEVELOPER) CORONAVIRUS SARS COV 2 PCR (RESP) NOT DETECTED NOT DETECTED 10/05/2020 1:22 PM C WINFORMS DEVELOPER [facility] Comment: A Not Detected (negative) test result for this test means that SARS- CoV-2 RNA was not present in the specimen above the limit of detection. A negative result does not rule out the possibility of COVID-19 and should not be used as the sole basis for treatment or patient management decisions. If COVID-19 is still suspected, based on exposure history together with other clinical findings, re-testing should be considered in consultation with public health authorities. Laboratory test results should always be considered in the context of clinical observations and epidemiological data in making a final diagnosis and patient management decisions. Please review the Fact Sheets and FDA authorized labeling available for health care providers and patients using the following websites: [email or web address]-[email or web address]/ fact-sheet2 This test has been authorized by the FDA under an Emergency Use Authorization (EUA) for use by authorized laboratories. Due to the current public health emergency, [facility] is receiving a high volume of samples from a wide variety of swabs and media for COVID-19 testing. In order to serve patients during this public health crisis, samples from appropriate clinical sources are being tested. Negative test results derived from specimens received in non-commercially manufactured viral collection and transport media, or in media and sample collection kits not yet authorized by FDA for COVID-19 testing should be cautiously evaluated and the patient potentially subjected to extra precautions such as additional clinical monitoring, including collection of an additional specimen. Methodology: Nucleic Acid Amplification Test (NAAT) includes RT-PCR or TMA Additional information about COVID-19 can be found at the [facility] website: [email or web address]. Test performed at [facility] [place] [address] [place] [address] Director: DENYS LAMAR DO,MPH FIRST TEST YES 10/04/2020 1:32 PM [facility] EMPLOYED IN HEALTHCARE UNKNOWN 10/04/2020 1:32 PM [facility] SYMPTOMATIC DEFINED BY CDC YES 10/04/2020 1:32 PM C WINFORMS DEVELOPER [facility] DATE OF SYMPTOM ONSET 2020091210/04/2020 1:32 PM C WINFORMS DEVELOPER [facility] HOSPITALIZATION STATUS NO 10/04/2020 1:32 PM C WINFORMS DEVELOPER [facility] PATIENT IN ICU NO 10/04/2020 1:32 PM C WINFORMS DEVELOPER [facility] RESIDENT OF CONGREGATE CARE UNKNOWN 10/04/2020 1:32 PM C WINFORMS DEVELOPER [facility] UNKNOWN 10/04/2020 1:34 PM C WINFORMS DEVELOPER [facility] PATIENT'S RACE WHITE OR 10/04/2020 1:32 PM C WINFORMS DEVELOPER [facility] ETHNICITY NONHISPANIC 10/04/2020 1:32 PM C WINFORMS DEVELOPER [facility] SOURCE (QST) NASOPHARYNGEAL SWAB 10/04/2020 1:32 PM C WINFORMS DEVELOPER [facility] NASOPHARYNGEAL SWAB / Unknown 10/04/2020 11:30 AM C WINFORMS DEVELOPER us Adin Hummel MD MICROBIOLOGY - GENE RAL ORDERABLES Final Result [facility] [address] [place] [address], [place] [address], documented in this encounter Visit Diagnoses Diagnosis Anemia- Primary Anemia, unspecified documented in this encounter Additional Health Concerns Infection Onset Date Last Indicated Resolved Time COVID-19 Rule Out 10/04/2020 10/04/2020 10/05/2020 1:22 PM C WINFORMS DEVELOPER documented as of this encounter Care Teams Resourcing Consultant Relationship Specialty Start Date End Date Purnima Rosario PA [address] [place] [address] [address] [place] [address] PCP - General PHYSICIAN RUBBER AND POUNDER 10/05/20 documented as of this encounter
--- OUTSIDE RECORDS SUMMARY | 2024-11-16 21:35 | XMS_ITS | Encounter Summary ---
Author Organization [facility] Address [address] [place] [address] Care Team Providers Care Data Processing Control Clerk Name Role Phone Purnima Rosario Primary Care Provider [phone] Niko Ledezma MD Unavailable [phone] Jose Iniguez MD Unavailable [phone] Jacque Pederson MA Unavailable Reason for Visit * Reason Onset Date Comments Medical Question/Miscellaneous 11/06/2024 Encounter Details Date Type Department Care Team (Late st Contact Info) Description 11/06/[address] [facility] Family Medicine [address] [place] [address] Purnima Rosario PA [address] [facility] [address] [place] [address] Medical Question/Miscellaneous Social History Tobacco Use Types Packs/Day Years Used Date Smoking Tobacco: Never Passive Smoke Exposure: Past Smokeless Tobacco: Never Alcohol Use Standard Drinks/Week Comments Never 0 (1 standard drink = 0.6 oz pur e alcohol) [facility] Utilities Answer Date Recorded In the past 12 months has e electric, gas, oil, or water company threatened to shut off services in your home? No 09/28/2024 Social Connection and Isolation Panel [NHANES] A nswer Date Recorded In a typical week, how many times do you talk on the phone with family, friends, or neighbors? Three times a week 09/28/19 25 How often do you get togethe r with friends or relatives? Three times a week 09/28/2024 How often do you attend chur ch or mormonism services? 1 to 4 times per year 09/28/2024 Do you belong to any clubs o r organizations such as zoroastrian groups, unions, fraternal or athletic groups, or school groups? No 09/28/2024 How often do you attend meet ings of the clubs or organizations you belong to? Never 09/28/2024 Are you , , di vorced, , never , or living with a partner? 09/28/2024 AUDIT-C Answer Date Recorded Q1: How often do you have a drink containing alcohol? Never 10/29/2024 Q2: How many drinks containi ng alcohol do you have on a typical day when you are drinking? Patient does not drink Q3: How often do you have si x or more drinks on one occasion? Never 10/29/2024 Overall Financial Resource Strain (CARDIA) Answe r Date Recorded How hard is it for you to pa y for the very basics like food, housing, medical care, and heating? Not hard at all 09/28/2024 PHQ-2 Answer Date Recorded PHQ-2 Total Score 2 10/29/2024 Hunger Vital Sign Answer Date Recorded Within the past 12 months, y ou worried that your food would run out before you got the money to buy more. Never true 09/28/19 25 Within the past 12 months, t he food you bought just didn't last and you didn't have money to get more. Never true 09/28/2024 PRAPARE - Transportation Answer Date Re corded In the past 12 months, has l ack of transportation kept you from medical appointments or from getting medications? No 02/2025 In the past 12 months, has l ack of transportation kept you from meetings, work, or from getting things needed for daily living? No 09/28/2024 Housing Stability Vital Sign Answer Alex e Recorded In the last 12 months, was t here a time when you were not able to pay the mortgage or rent on time? No 09/28/2024 In the past 12 months, how m any times have you moved where you were living? 0 09/28/2024 At any time in the past 12 m [facility], were you homeless or living in a group home (including now)? No 09/28/2024 Personal Safety Answer Date Recorded Have you ever been in or are you currently in a harmful physical or emotional relationship or is someone making you feel afraid or unsafe? 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 Pt is going to discharge from [facility] this week. ERSHIP COUNSELOR * Telephone Encounter - Bobbi Kendall LPN - 11/09/2024 10:23 AM MEMBERSHIP COUNSELOR Called and LVM. Please transfer through to office to [place]. ERSHIP COUNSELOR * Telephone Encounter - Ofelia Farah - 11/06/2024 2:13 PM CST Medical Question/Miscellaneous Caller???s Concern: Chaitanya with [facility] called stating he was told some medications had changed and wants to confirm this. Practice closed at noon. Please call back. Does message need to be routed? Yes-Action Needed ERSHIP COUNSELOR documented in this encounter Plan of Treatment Not on file documented as of this encounter Visit Diagnoses Not on filedocumented in this encounter Care Teams Data Processing Control Clerk Relationship Specialty Start Date End Date Purnima Rosario PA [address] [facility] [address] [place] [address] PCP - General 11/27/18 Niko Ledezma MD [address] [place] [address] Consulting Physician Rheumatology 09/30/20 Jose Iniguez MD [address] [address] [place] [address] Consulting Physician Family Medicine 10/23/24 Jacque Pederson MA [address] [place] [address] [address] [place] [address] ACO Care Captain/Check Airman 11/06/24 11/09/24 documented as of this encounter
--- OUTSIDE RECORDS SUMMARY | 2024-11-16 21:35 | XMS_ITS | Referral Summary ---
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 travel. No sick exposure. No nighttime symptom. No presence of blood in stool. No tenesmus. + urgency. No family history of colon cancer. No family history of IBD. + fecal incontinence -improved abdominal pain. Improved abdominal bloating -stool studies as above. Fecal leukocyte negative -last colonoscopy as above -will continue with methylcellulose to be used on a daily basis. This will also help with abdominal bloating. If not available recommended to use Benefiber or FiberCon half to one tbsp daily. -for her abdominal pain will continue treatment with dicyclomine 10 mg q.6 hours p.r.n. abdominal pain -will give Imodium to be used on a p.r.n. basis for diarrhea symptom. Discussed the ways to use the Imodium. 2 mg p.r.n. for diarrhea. No more than 8 pills a day. Assessment & Plan (03/14/2022 1:15 PM CDT): -chronic symptom. No prior history of antibiotic use. No travel. No sick exposure. No nighttime symptom. No presence of blood in stool. No tenesmus. + urgency. No family history of colon cancer. No family history of IBD. + fecal incontinence -+ abdominal pain. + abdominal bloating -stool studies as above. Fecal leukocyte not done. Will do fecal leukocyte to assess for any inflammatory component. -last colonoscopy as above -will initiate therapy with methylcellulose to be used on a daily basis. This will also help with abdominal bloating. If not available recommended to use Benefiber or FiberCon half to one tbsp daily. -for her abdominal pain will initiate treatment with dicyclomine 10 mg q.6 hours p.r.n. abdominal pain -will give Imodium to be used on a p.r.n. basis for diarrhea symptom. Discussed the ways to use the Imodium. 2 mg p.r.n. for diarrhea. No more than 8 pills a day. Abdominal pain 03/14/2022 Assessment & Plan (05/20/2022 10:32 AM CDT): This is a significant, separately identifiable problem that was evaluated and managed on the same day as the wellness exam Patient has increasing abdominal pain and symptoms. It is across midepigastric area to the right upper quadrant as well as periumbilical. Will check stat labs at [facility] today. Will obtain CT abdomen and pelvis stat to work this up also. Concern for diverticulitis versus colitis versus pancreatitis versus other etiology. Wall so sent for labs including amylase lipase troponins. She is already established with GI so pending results may need follow-up with her versus Cardiology. Reviewed that if symptoms increase even after the CT begins to have increasing chest pain shortness a breath especially with activity she is immediately go to the ER for full evaluation. She agrees with the plan Bloating 03/14/2022 Diarrhea 02/22/2022 Assessment & Plan (02/22/2022 6:47 PM CDT): Will evaluate further with labs and imaging, will notify pt of results as they become available Will refer to gi for further evaluation and treatment. Muscle cramps 05/06/2021 Assessment & Plan (05/06/2021 8:50 PM CDT): Probably multifactorial. Check labs and followup to re-evaluate Check electrolytes and TSH as has had problems with both including mag. Also concern for UTI If has increased sxs, she may consider ER while waiting for results. Fatigue 05/06/2021 Assessment & Plan (03/24/2023 7:41 PM CDT): Probably multifactorial. Check labs and followup to re-evaluate Assessment & Plan (05/06/2021 8:50 PM CDT): Probably multifactorial. Check labs and followup to re-evaluate Check electrolytes and TSH as has had problems with both including mag. Also concern for UTI If has increased sxs, she may consider ER while waiting for results. retirement current use of therapeutic drug 2020 Assessment & Plan (10/05/2024 11:10 AM [employer]): Hepatitis negative: 09/2020 TB quant negative: 10/2020 TPMT wnl: 09/2020 Assessment & Plan (06/29/2024 12:58 PM CDT): Hepatitis negative: 09/2020 TB quant negative: 10/2020 TPMT wnl: 09/2020 Assessment & Plan (03/30/2024 12:56 PM CDT): Hepatitis negative: 09/2020 TB quant negative: 10/2020 TPMT wnl: 09/2020 Assessment & Plan (12/09/2023 1:20 PM CDT): Hepatitis negative: 09/2020 TB quant negative: 10/2020 TPMT wnl: 09/2020 Assessment & Plan (09/09/2023 3:13 PM [employer]): Hepatitis negative: 09/2020 TB quant negative: 10/2020 TPMT wnl: 09/2020 Assessment & Plan (06/17/2023 12:57 PM CDT): Hepatitis negative: 09/2020 TB quant negative: 10/2020 TPMT wnl: 09/2020 Assessment & Plan (03/04/2023 3:54 PM CDT): Hepatitis negative: 09/2020 TB quant negative: 10/2020 TPMT wnl: 09/2020 Assessment & Plan (11/19/2022 1:53 PM [employer]): Hepatitis negative: 09/2020 TB quant negative: 10/2020 TPMT wnl: 09/2020 Assessment & Plan (08/20/2022 1:43 PM [employer]): Hepatitis negative: 09/2020 TB quant negative: 10/2020 TPMT wnl: 09/2020 Assessment & Plan (07/20/2022 10:42 AM CDT): Hepatitis negative: 09/2020 TB quant negative: 10/2020 TPMT wnl: 09/2020 Assessment & Plan (03/30/2022 9:54 AM CDT): Hepatitis negative: 09/2020 TB quant negative: 10/2020 TPMT wnl: 09/2020 Assessment & Plan (12/29/2021 11:56 AM CDT): Hepatitis negative: 09/2020 TB quant negative: 10/2020 TPMT wnl: 09/2020 Discussed 4th COVID vaccine and that the [employer] has not released any official guidelines regarding the booster dose for our patient population. If she would choose to get the 4th dose, advised to get the vaccine closer to her next Benlysta infusion and then post-pone the infusion by 2 weeks following the vaccine. Assessment & Plan (09/29/2021 11:33 AM [employer]): Hepatitis negative: 09/2020 TB quant negative: 10/2020 TPMT wnl: 09/2020 Assessment & Plan (06/30/2021 10:33 AM CDT): Hepatitis negative: 09/2020 TB quant negative: 10/2020 TPMT wnl: 09/2020 Assessment & Plan (03/31/2021 10:14 AM CDT): Hepatitis negative: 09/2020 TB quant negative: 10/2020 TPMT wnl: 09/2020 Assessment & Plan (12/30/2020 10:27 AM CDT): Hepatitis negative: 09/2020 TB quant negative: 10/2020 TPMT wnl: 09/2020 Anemia 11/27/2020 Assessment & Plan (12/04/2020 8:48 PM CDT): Monitor labs Assessment & Plan (11/27/2020 10:20 AM [employer]): Awaiting recommendation from Dr. Medina. EGD/Colonoscopy scheduled on 10/07 Breast cancer screening by mammogram 10/25/2019 Assessment & Plan (11/16/2024 12:48 AM [employer]): Mammogram order provided Assessment & Plan (05/06/2021 8:44 PM CDT): Mammogram order provided Assessment & Plan (10/25/2019 3:29 PM [employer]): Mammogram order provided Hypomagnesemia 10/18/2019 Assessment & Plan (03/24/2023 7:42 PM CDT): This is a significant, separately identifiable problem that was evaluated and managed on the same day as the wellness exam Persistent hypomagnesemia. Following with Cardiology. Had titrated up to 2400 mg in divided doses. Her level was stable but she states she was having more palpitations and GI side effects so has completely discontinued all replacement. Recommend rechecking level again. Continue closely with Cardiology as she is in the middle of Cardiac workup. Reminded her if she would have increased chest pain shortness a breath or palpitations with heart racing she needs to go to the ER. She verbalizes understanding Assessment & Plan (02/09/2023 10:35 PM CDT): Chronic persistent hypo magnesiumia Has had multiple hospitalizations and persistent arrhythmias secondary to the low magnesium levels. Is taking magnesium supplementation of 2400 daily Patient needs see membership assistant sooner than February. Staff worked on finding her connection at [facility] with [facility] group there. Appreciate assistance with determining underlying cause for the low magnesium and treatment of palpitations Assessment & Plan (01/20/2023 2:46 PM CDT): Patient has consistently low magnesium. In the hospital was down to 1.2. She is currently taking 1600 mg in divided doses of magnesium daily. Go ahead and check it again to see if for close to being in range. Check her other electrolytes. Unable to determine underlying reason for the low magnesium. She does have a niece who also has the same issue. Will refer to cardiology for management of the arrhythmia but will continue to titrate up the magnesium to try to keep it holding closer to 2 Assessment & Plan (12/28/2022 10:50 AM CDT): Patient with history of hypomagnesemia. She has been having difficulty even with supplementation keeping the magnesium at a normal level. She had episode of diarrhea which may be contributing to increased electrolyte abnormality. With her irregular heartbeat and feeling bad. Significant concern for arrhythmia secondary to electrolyte imbalance. She is also experiencing chest pressure which is concerning. Advised she needs immediate it evaluation at an ER. Offered ambulance transportation. She declined. States her sister will try her. Offered to call her sister to pick her up here but she prefers to drive to her own which is just a few blocks away. Stressed importance of immediate evaluation. Plans to go to [facility]. Will await recommendation Assessment & Plan (12/02/2022 3:10 PM CDT): This is a significant, separately identifiable problem that was evaluated and managed on the same day as the wellness exam Patient has had persistent low magnesium levels. In-house a or in the acute range. She has replenished them upon discharge but will need to recheck to make sure they are still in range. Order provided. Have been doing supplement. Still having difficulty keeping it at level. Other electrolytes have been stable. She states she has a niece that has exact same problem. She is going to try to take 2 different supplements of magnesium both magnesium gluconate and magnesium oxide and see if this stabilizes the level. Assessment & Plan (12/02/2021 12:34 PM [employer]): Persistent hypo magnesium even on supplement. Continue replacement. Will investigate further underlying causes as holding decreasing the PPI did not make a difference. Assessment & Plan (08/20/2021 8:38 PM [employer]): Magnesium continues to remain low. Continue with supplementation. Will decrease the PPI to see if we can get the magnesium stabilized. Redraw in about 2-3 weeks Assessment & Plan (05/06/2021 8:46 PM CDT): Check labs Assessment & Plan (12/04/2020 8:48 PM CDT): Continue Magnesium supplement and monitor labs Assessment & Plan (07/27/2020 7:29 AM [employer]): Stable. Continue replacement Assessment & Plan (11/18/2019 9:06 PM [employer]): Continue replacement Recheck labs for stability Assessment & Plan (10/18/2019 4:00 PM [employer]): This is a significant, separately identifiable problem that was evaluated and managed on the same day as the wellness exam Started supplement last week. Recheck in 3-4 weeks for stability Positive YINA (antinuclear antibody) 06/07/2019 Assessment & Plan (11/27/2020 10:19 AM [employer]): Refer to Rheum Assessment & Plan (07/27/2020 7:31 AM [employer]): See lupus Assessment & Plan (06/07/2019 11:35 PM CDT): She will consider referral to Product Safety Head. Other forms of systemic lupus erythematosus 03/24 Overview (11/03/2020): Labs (10/18/2020): ESR (51) AVISE (10/18/2020): +YINA 1:5120 homogenous, equivocal anti-RNA kings iii and anti- TG, anti-RibP (35) Hepatitis negative: 09/2020 TB quant negative: 10/2020 TPMT wnl: 09/2020 CXR (10/24/2020): tortuous aorta; atherosclerosis XR b/l feet (10/24/2020): moderate OA R 1st MTP with periarticular calcification and early erosions possibly related to gout. Bone spurs bilaterally suggest chronic plantar fasciitis. XR b/l hands (10/24/2020): scattered OA US right hand/wrist (10/25/20):Mild effusions and power doppler on exam on examination which will have to be correlated clinically. Moderate synovial thickening in the 2nd PIP joint. Grade 1 effusion and grade 2 power doppler in the wrist and radial/scaphoid joint. Grade 1 power doppler in the volar wrist. Assessment & Plan (11/16/2024 12:49 AM [employer]): Continue per [facility]. On leflunomide 20 daily in [place] list IV monthly Assessment & Plan (10/05/2024 11:09 AM [employer]): Stable on leflunomide and Benlysta IV. Wanting to switch to Benlysta SQ however due to [id number] cost and with her back pain/sciatica she will not have to drive then sit for a while which exacerbates this pain. Started lupavita (multivitamin for lupus containing B12, VitD, Mg, turmeric, and flaxseed) and had been able to stop ibuprofen as it has helped to greatly reduce her pain. -Continue leflunomide 20mg daily -Switch from Benlysta IV to Benlysta SQ weekly due to cost/ease of administration. -Recent labs reviewed today. -Follow up in 3-4 months. Sooner if needed. Assessment & Plan (06/29/2024 12:58 PM CDT): Stable on leflunomide and Benlysta IV. Started lupavita (multivitamin for lupus containing B12, VitD, Mg, turmeric, and flaxseed) and had been able to stop ibuprofen as it has helped to greatly reduce her pain. Will continue leflunomide 20mg daily and Benlysta IV monthly. Routine labs today. Follow up in 3-4 months. Sooner if needed. Assessment & Plan (05/23/2024 3:59 PM CDT): Continue per [facility]. They are managing her lupus. Assessment & Plan (03/30/2024 1:18 PM CDT): Stable on leflunomide and Benlysta IV. Started lupavita (multivitamin for lupus containing B12, VitD, Mg, turmeric, and flaxseed) and had been able to stop ibuprofen as it has helped to greatly reduce her pain. Will continue leflunomide 20mg daily and Benlysta IV monthly. Routine labs today. Follow up in 3-4 months. Sooner if needed. Assessment & Plan (12/09/2023 2:55 PM CDT): Stable on leflunomide and Benlysta IV. Started lupavita (multivitamin for lupus containing B12, VitD, Mg, turmeric, and flaxseed) and had been able to stop ibuprofen as it has helped to greatly reduce her pain. Will continue leflunomide 20mg daily and Benlysta IV monthly. Advised to call should she require prednisone taper for recent increasing joint symptoms/flare. Recent labs reviewed with patient. Check LFTs today. Follow up in 3-4 months. Sooner if needed. Assessment & Plan (11/11/2023 10:31 AM [employer]): Continue pe [facility] VALENTINO Diaz Assessment & Plan (09/09/2023 3:13 PM [employer]): Improvement of peripheral joint synovitis and tenderness since initiating leflunomide in 06/2022. Noticing some recurrence of knee pain mostly at night but uses topical analgesics and tylenol with benefit. Denies any photosensitive rashes or oral/nasal ulcers. Started Benlysta IV 11/14/20 with good joint response initially. Started lupavita (multivitamin for lupus containing B12, VitD, Mg, turmeric, and flaxseed) and had been able to stop ibuprofen as it has helped to greatly reduce her pain. Will continue leflunomide 20mg daily and Benlysta IV monthly. Recent labs reviewed with patient. Follow up in 3-4 months. Sooner if needed. Seen with Dr. Ledezma. Assessment & Plan (06/17/2023 1:16 PM CDT): Improvement of peripheral joint synovitis and tenderness since initiating leflunomide in 06/2022. Noticing some recurrence of knee pain mostly at night but uses topical analgesics and tylenol with benefit. Denies any photosensitive rashes or oral/nasal ulcers. Started Benlysta IV 11/14/20 with good joint response initially. Started lupavita (multivitamin for lupus containing B12, VitD, Mg, turmeric, and flaxseed) and had been able to stop ibuprofen as it has helped to greatly reduce her pain. Will continue leflunomide 20mg daily and Benlysta IV monthly. Recent labs reviewed with patient. Follow up in 3-4 months. Sooner if needed. Assessment & Plan (06/17/2023 9:53 AM CDT): Continue per [facility]. States she has not appointment this afternoon. Assessment & Plan (03/24/2023 7:39 PM CDT): Continue per Dr. Diaz - Rheumatology Assessment & Plan (03/04/2023 3:54 PM CDT): Improvement of peripheral joint synovitis and tenderness since initiating leflunomide in 06/2022. Noticing some recurrence of knee pain mostly at night but uses topical with benefit. Denies any s/e. Denies any photosensitive rashes or oral/nasal ulcers. Started Benlysta IV 11/14/20 with good joint response initially. Started lupavita (multivitamin for lupus containing B12, VitD, Mg, turmeric, and flaxseed) and had been able to stop ibuprofen as it has helped to greatly reduce her pain. Will continue leflunomide 20mg daily and Benlysta IV monthly. Recent labs reviewed with patient. Will get lupus specific labs today. Follow up in 3-4 months. Sooner if needed. Assessment & Plan (01/20/2023 2:45 PM CDT): Continue per [facility] for management of her lupus Assessment & Plan (12/02/2022 3:04 PM CDT): Continue per [facility] Assessment & Plan (11/19/2022 1:53 PM [employer]): Improvement of peripheral joint synovitis and tenderness since initiating leflunomide in 06/2022. Denies any s/e. Denies any photosensitive rashes or oral/nasal ulcers. Started Benlysta IV 11/14/20 with good joint response initially. Started lupavita (multivitamin for lupus containing B12, VitD, Mg, turmeric, and flaxseed) and had been able to stop ibuprofen as it has helped to greatly reduce her pain. Will continue leflunomide 20mg daily and Benlysta IV monthly. Recent labs reviewed with patient. Follow up in 3-4 months. Sooner if needed. Assessment & Plan (08/20/2022 1:43 PM [employer]): Improved synovitis and tenderness noted on today's peripheral joint exam since initiating leflunomide last visit. Denies any s/e. Denies any photosensitive rashes or oral/nasal ulcers. Started Benlysta IV 11/14/20 with good joint response initially. Started lupavita (multivitamin for lupus containing B12, VitD, Mg, turmeric, and flaxseed) and had been able to stop ibuprofen as it has helped to greatly reduce her pain. Will continue leflunomide 20mg daily. Continue Benlysta IV monthly. Routine labs today. Follow up in 3 months. Sooner if needed. Assessment & Plan (07/20/2022 10:42 AM CDT): Increased synovitis with tenderness noted in the bilateral wrists and right ankle on exam today suggesting increased inflammatory activity. Denies any photosensitive rashes or oral/nasal ulcers. Started Benlysta IV 11/14/20 with good joint response initially. Started lupavita (multivitamin for lupus containing B12, VitD, Mg, turmeric, and flaxseed) and had been able to stop ibuprofen as it has helped to greatly reduce her pain. Due to recent increased joint complaints, will start leflunomide 20mg daily. Discussed potential side effects including but not limited to increased infection, diarrhea, blood count abnormalities, and/or rash. Previously had s/e to HCQ and no benefit with MTX. Unable to use AZA as she is on allopurinol for gout. Continue Benlysta IV monthly. Should she have no significant relief with leflunomide, could consider changing Benlysta to Anifrolumab. Will check routine labs today. Follow up in 1 month. Sooner if needed. Seen with Dr. Ledezma. Assessment & Plan (03/30/2022 10:37 AM CDT): Minimal synovitis with tenderness noted on peripheral exam today. Started Benlysta IV 11/14/20 with good joint response. Started lupavita (multivitamin for lupus containing B12, VitD, Mg, turmeric, and flaxseed) and has been able to stop ibuprofen as it has helped to greatly reduce her pain. Overall, continues to do well overall. Continue Benlysta IV monthly. Will check routine labs next visit. Follow up in 3-4 months. Sooner if needed. Assessment & Plan (12/29/2021 11:53 AM CDT): Stable synovitis and tenderness noted on peripheral exam today. Started Benlysta IV 11/14/20 with good joint response. Started lupavita (multivitamin for lupus containing B12, VitD, Mg, turmeric, and flaxseed) and has been able to stop ibuprofen as it has helped to greatly reduce her pain. C/o slight increase of pain in the b/l hands lately but attributes this to weather changes. Continue Benlysta IV monthly. Will check routine labs next visit. Follow up in 3 months. Sooner if needed. Assessment & Plan (09/29/2021 11:33 AM [employer]): Stable synovitis and tenderness noted on peripheral exam today. Started Benlysta IV 11/14/20 with good joint response. Started lupavita (multivitamin for lupus containing B12, VitD, Mg, turmeric, and flaxseed) and has been able to stop ibuprofen as it has helped to greatly reduce her pain. Continue Benlysta IV monthly. Routine labs to be done next month with PCP labs. Follow up in 3 months. Sooner if needed. Assessment & Plan (08/20/2021 8:38 PM [employer]): Continue per Rheumatology Assessment & Plan (06/30/2021 12:08 PM CDT): Improved synovitis and tenderness noted on peripheral exam today. Started Benlysta IV 11/14/20 with good joint response. Recently started lupavita (multivitamin for lupus containing B12, VitD, Mg, turmeric, and flaxseed) and has been able to stop ibuprofen as it has helped to greatly reduce her pain. Continue Benlysta IV monthly. Routine labs today. Follow up in 3 months. Sooner if needed. Seen with Dr. Murrell. Assessment & Plan (05/06/2021 8:47 PM CDT): Continue per Rheum Assessment & Plan (03/31/2021 12:25 PM CDT): Increased synovitis and tenderness noted on peripheral exam today. Started Benlysta IV 11/14/20 with good joint response however has noticed worsening pain this past month. Due to burden of disease, will administer kenalog 100 mg IM injection, in office, today. Patient was advised of the potential side effects of the medication, including but not limited to increased blood sugar, weight gain, avascular necrosis, glaucoma, cataracts, and/or osteoporosis. Continue Benlysta IV monthly. Routine labs today. Follow up in 3 months. Sooner if needed. Assessment & Plan (12/30/2020 10:26 AM CDT): Stable synovitis and tenderness noted on peripheral exam today. Started Benlysta IV 11/14/20. Finished loading dose without any side effects. Noticing flare of joint pain today but has been taking ibuprofen less frequently. Continue Benlysta IV monthly and give this more time to take effect. Routine labs today. Follow up in 3 months. Sooner if needed. Assessment & Plan (12/04/2020 8:48 PM CDT): Continue per [facility]. Assessment & Plan (11/01/2020 11:54 AM [employer]): US right hand/wrist (10/25/20):Mild effusions and power doppler on exam on examination which will have to be correlated clinically. Moderate synovial thickening in the 2nd PIP joint. Grade 1 effusion and grade 2 power doppler in the wrist and radial/scaphoid joint. Grade 1 power doppler in the volar wrist. Serologies revealed a positive YINA 1:5120 homogenous pattern as well as anti-Ribosomal P (35) and elevated ESR (51). Radiographs revealed OA in the bilateral hands and feet as well as erosions in the right foot suggestive of gout. Continues to c/o pain in the hands, wrists, and ankles that responds to systemic steroids. Hx of Raynaud's, malar rash, oral ulcers, and sicca symptoms. Symptoms and serologies remain consistent with prior diagnosis of SLE. Will start approval of Benlysta IV. Patient advised of the potential side effects of the medication, including but not limited to increased risk of infection, nausea, skin reaction, and/or diarrhea. Avoiding azathioprine since she is on allopurinol for gout. Check TB quant today as well. Follow up in 2 months. Sooner if needed. Seen with Dr. Ledezma. Assessment & Plan (10/18/2020 12:10 PM [employer]): 69-year-old female with PMHx of lupus, Raynaud's, gout, PE, Mariela's DZ, CKD, and steatohepatitis. SLE previously treated with HCQ (caused QT prolongation) and MTX (no benefit). Hx of Raynaud's, malar rash, oral ulcers, sicca symptoms, and joint pain and swelling in the hands, wrists, and ankles. Symptoms respond to systemic steroids. Synovitis with tenderness noted on peripheral exam today. Symptoms and exam are suspicious for SLE however most recent YINA by pcp was negative. Will order appropriate serologies, radiographs, and a right hand/wrist US to further evaluate. Will also check TPMT in anticipation of using azathioprine for potential SLE. Follow up in 2 weeks. Sooner if needed. Seen with Dr. Ledezma. Assessment & Plan (07/27/2020 7:30 AM [employer]): Patient states she knows that she has elevated YINA and has been told is lupus but has never sought treatment with Rheumatology. She complains of joint pain in hands feet knees and is generally all around miserable. Will start her on a Medrol Dosepak to see if it cuts the flare up. Caution with anti-inflammatories due to her renal function. Recheck YINA titer. She stopped her SSRI so may consider restarting in the near future also. Assessment & Plan (10/18/2019 3:56 PM [employer]): Pt still not interested in f/u Rheumatology. Assessment & Plan (04/18/2019 10:39 AM CDT): Recheck labs. Menopause 02/08/2019 Assessment & Plan (11/11/2023 10:32 AM [employer]): Check DEXA Assessment & Plan (10/25/2019 3:28 PM [employer]): Due for DXA Assessment & Plan (02/08/2019 7:35 PM CDT): DXA order provided SAPNA on CPAP 01/27/2019 Overview (01/22/2023): Home study 2015 --- Doesn't use CPAP regular. Assessment & Plan (11/11/2023 10:29 AM [employer]): Home study 2015 --- Doesn't use CPAP regular. Assessment & Plan (12/02/2021 12:34 PM [employer]): Continue CPAP Assessment & Plan (08/20/2021 8:38 PM [employer]): Continue with CPAP Assessment & Plan (05/06/2021 8:48 PM CDT): Reviewed importance of using CPAP and risk of untreted/under treated SAPNA. She doesn't want to see PUlm Assessment & Plan (12/04/2020 8:46 PM CDT): Continue CPAP Assessment & Plan (11/27/2020 10:17 AM [employer]): Continue CPAP Assessment & Plan (04/23/2020 12:57 PM CDT): Continue CPAP. Has all needed supplies Assessment & Plan (10/18/2019 3:53 PM [employer]): Continue CPAP. Has all the needed suppplies Assessment & Plan (01/27/2019 9:37 AM CDT): Doing well with it. Using nightly. Has all the needed supplies Primary hypertension 01/26/2019 Assessment & Plan (11/16/2024 12:49 AM [employer]): Bp is stable/in acceptable range for any co-morbidities. Encouraged to limit sodium intake and exercise for weight control. Continue losartan 25, spironolactone 25, metoprolol XL 25 daily and potassium supplementation Assessment & Plan (05/23/2024 4:01 PM CDT): Bp is stable/in acceptable range for any co-morbidities. Encouraged to limit sodium intake and exercise for weight control. Continue per Cardiology Assessment & Plan (11/11/2023 10:29 AM [employer]): CAD CHF both managed by Dr[facility]. Currently on ASA, simvistatin, Jardiance 10, spironolactone, losartan and metoprolol. She has not been able to tolerate Entresto Assessment & Plan (06/17/2023 9:55 AM CDT): Bp is stable/in acceptable range for any co-morbidities. Encouraged to limit sodium intake and exercise for weight control. Continue per Cardiology. He continues to tweak her medications based on her symptoms Assessment & Plan (03/24/2023 7:41 PM CDT): Bp is stable/in acceptable range for any co-morbidities. Encouraged to limit sodium intake and exercise for weight control. Continue to monitor closely as upper end of normal. Assessment & Plan (02/09/2023 10:29 PM CDT): Bp is stable/in acceptable range for any co-morbidities. Encouraged to limit sodium intake and exercise for weight control. Managing without medication Assessment & Plan (12/28/2022 10:47 AM CDT): Patient's blood pressure has been stable without medication Assessment & Plan (12/02/2022 3:01 PM CDT): Bp is stable/in acceptable range for any co-morbidities. Encouraged to limit sodium intake and exercise for weight control. Currently stable without medication Assessment & Plan (12/02/2021 12:31 PM [employer]): Bp is stable/in acceptable range for any co-morbidities. Encouraged to limit sodium intake and exercise for weight control. Avoid nephrotoxic drugs including NSAIDs. Monitor labs. Assessment & Plan (05/06/2021 8:46 PM CDT): Avoid nephrotoxic drugs including NSAIDs. Monitor labs. Assessment & Plan (01/14/2021 2:53 PM CDT): Avoid nephrotoxic drugs including NSAIDs. Monitor labs. Assessment & Plan (12/04/2020 8:47 PM CDT): Manage bp and Avoid nephrotoxic drugs including NSAIDs. Monitor labs. Assessment & Plan (11/27/2020 10:18 AM [employer]): Bp is stable/in acceptable range for any co-morbidities. Encouraged to limit sodium intake and exercise for weight control. Avoid nephrotoxic drugs including NSAIDs. Monitor labs. Assessment & Plan (07/27/2020 7:26 AM [employer]): Bp is stable/in acceptable range for any co-morbidities. Encouraged to limit sodium intake and exercise for weight control. Avoid nephrotoxic drugs including NSAIDs. Monitor labs. Assessment & Plan (04/23/2020 12:58 PM CDT): Avoid nephrotoxic drugs including NSAIDs. Monitor labs. Bp is stable/in acceptable range for any co-morbidities. Encouraged to limit sodium intake and exercise for weight control. Assessment & Plan (11/19/2019 5:47 PM [employer]): Bp is stable/in acceptable range for any co-morbidities. Encouraged to limit sodium intake and exercise for weight control. Assessment & Plan (10/18/2019 3:54 PM [employer]): Bp is stable/in acceptable range for any co-morbidities. Encouraged to limit sodium intake and exercise for weight control. Avoid nephrotoxic drugs including NSAIDs. Monitor labs. Assessment & Plan (02/08/2019 7:32 PM CDT): Avoid nephrotoxic drugs including NSAIDs. Monitor labs. Bp is stable/in acceptable range for any co-morbidities. Encouraged to limit sodium intake and exercise for weight control. Mixed hyperlipidemia 01/26/2019 Assessment & Plan (11/16/2024 12:48 AM [employer]): Encouraged patient to follow low fat/low chol diet like the Mediterranean diet. Increase good fats in the diet. Increase exercise. Monitor labs as needed. Continue simvastatin Assessment & Plan (05/23/2024 4:01 PM CDT): Encouraged patient to follow low fat/low chol diet like the Mediterranean diet. Increase good fats in the diet. Increase exercise. Monitor labs as needed. Continue statin Assessment & Plan (11/11/2023 10:28 AM [employer]): Encouraged patient to follow low fat/low chol diet like the Mediterranean diet. Increase good fats in the diet. Increase exercise. Monitor labs as needed. Continue simvastatin Assessment & Plan (06/17/2023 9:55 AM CDT): Encouraged patient to follow low fat/low chol diet like the Mediterranean diet. Increase good fats in the diet. Increase exercise. Monitor labs as needed. Continue statin Assessment & Plan (02/09/2023 10:30 PM CDT): Encouraged patient to follow low fat/low chol diet like the Mediterranean diet. Increase good fats in the diet. Increase exercise. Monitor labs as needed. Continue statin Assessment & Plan (01/20/2023 2:44 PM CDT): Encouraged patient to follow low fat/low chol diet like the Mediterranean diet. Increase good fats in the diet. Increase exercise. Monitor labs as needed. Continue statin Assessment & Plan (12/28/2022 10:47 AM CDT): Encouraged patient to follow low fat/low chol diet like the Mediterranean diet. Increase good fats in the diet. Increase exercise. Monitor labs as needed. Continue statin Assessment & Plan (12/02/2022 3:02 PM CDT): Encouraged patient to follow low fat/low chol diet like the Mediterranean diet. Increase good fats in the diet. Increase exercise. Monitor labs as needed. Continue simvastatin Assessment & Plan (05/20/2022 10:31 AM CDT): Encouraged patient to follow low fat/low chol diet like the Mediterranean diet. Increase good fats in the diet. Increase exercise. Monitor labs as needed. Continue with simvastatin Assessment & Plan (12/02/2021 12:32 PM [employer]): Encouraged patient to follow low fat/low chol diet like the Mediterranean diet. Increase good fats in the diet. Increase exercise. Monitor labs as needed. Continue statin Assessment & Plan (08/20/2021 8:37 PM [employer]): Encouraged patient to follow fat/low chol diet like the Mediterranean diet. Increase good fats in the diet. Increase exercise. Monitor labs as needed. Continue with the statin Assessment & Plan (05/06/2021 8:44 PM CDT): Encouraged patient to follow fat/low chol diet like the Mediterranean diet. Increase good fats in the diet. Increase exercise. Monitor labs as needed. Continue statin Assessment & Plan (12/04/2020 8:48 PM CDT): Encouraged patient to follow fat/low chol diet like the Mediterranean diet. Increase good fats in the diet. Increase exercise. Monitor labs as needed. Continue statin Assessment & Plan (07/27/2020 7:28 AM [employer]): Encouraged patient to follow fat/low chol diet like the Mediterranean diet. Increase good fats in the diet. Increase exercise. Monitor labs as needed. Assessment & Plan (04/23/2020 1:01 PM CDT): Increase to 400mg bid Recheck labs in a few months Assessment & Plan (11/18/2019 9:04 PM [employer]): Encouraged patient to continue low fat/low chol diet. Continue exercise. Increase good fats in the diet. Monitor labs as needed. Assessment & Plan (10/25/2019 3:29 PM [employer]): Recheck labs Assessment & Plan (10/18/2019 3:55 PM [employer]): Encouraged patient to continue low fat/low chol diet. Continue exercise. Increase good fats in the diet. Monitor labs as needed. D Assessment & Plan (02/08/2019 7:32 PM CDT): Encouraged patient to continue low fat/low chol diet. Continue exercise. Increase good fats in the diet. Monitor labs as needed. Acquired hypothyroidism 01/26/2019 Assessment & Plan (11/16/2024 12:48 AM [employer]): Continue levothyroxine 100 mcg. Monitor labs. Assessment & Plan (05/23/2024 3:59 PM CDT): Continue levothyroxine 112 mcg. Monitor labs. Ultrasound showed a TI-RADS category 1. No further follow-up needed Assessment & Plan (11/11/2023 10:28 AM [employer]): Continue levothyroxine. Monitor labs. Continue levothyroxine Assessment & Plan (06/17/2023 9:55 AM CDT): Continue levothyroxine. Monitor labs. Assessment & Plan (03/24/2023 7:41 PM CDT): Continue levothyroxine. Monitor labs. Assessment & Plan (02/09/2023 10:30 PM CDT): Continue levothyroxine. Monitor labs. Assessment & Plan (01/20/2023 2:45 PM CDT): Continue levothyroxine. Monitor labs. Assessment & Plan (12/28/2022 10:47 AM CDT): Continue levothyroxine Assessment & Plan (12/02/2022 3:02 PM CDT): Continue levothyroxine. Monitor labs. Assessment & Plan (05/20/2022 10:31 AM CDT): Continue levothyroxine and monitor labs Assessment & Plan (12/02/2021 12:32 PM [employer]): Continue Synthroid 112 Assessment & Plan (08/20/2021 8:37 PM [employer]): Continue levothyroxine. Monitor labs. Assessment & Plan (05/06/2021 8:44 PM CDT): Continue levothyroxine. Monitor labs. Assessment & Plan (01/14/2021 2:56 PM CDT): Check labs Assessment & Plan (12/04/2020 8:47 PM CDT): Stable at 112 Synthroid BRAND. Recheck in 4 weeks for stability Continue to monitor. Assessment & Plan (11/27/2020 10:18 AM [employer]): Continue to monitor closely On Synthroid 112 Assessment & Plan (07/27/2020 7:29 AM [employer]): Patient is taking her levothyroxine as directed. Her TSH continues to fluctuate high and low. She feels horrible when it does. Currently on 100 mcg. Will increase to 112 mcg but fill as Synthroid brand only to see if stabilizes the fluctuation. Recheck TSH in 4 weeks. Assessment & Plan (04/23/2020 12:59 PM CDT): TSH is stable. Continue same dose. Assessment & Plan (11/18/2019 9:05 PM [employer]): Continue current dose. Recheck again in a month Assessment & Plan (10/25/2019 3:29 PM [employer]): Continue to drop dose and monitor labs until no longer supressed. Pt voices understanding Assessment & Plan (10/18/2019 4:01 PM [employer]): This is a significant, separately identifiable problem that was evaluated and managed on the same day as the wellness exam Has been supressed and continue to adjust the dose. Continue replacement. Just adjusted---recheck labs in a few weeks. Assessment & Plan (06/07/2019 11:35 PM CDT): Continue with levothyroxine adjustment. Check TSH as planned. Assessment & Plan (04/18/2019 10:33 AM CDT): Continue to adjust levothyroxine until TSH is in range. Recheck lags in 3-4 weeks. Assessment & Plan (03/15/2019 7:20 PM CDT): Decrease dose to 175mcg and recheck in 4 weeks. Assessment & Plan (01/27/2019 9:41 AM CDT): TSH is suppressed. Decrease levothyroxine to 200mcg (will take TWO of the 100mcg) and recheck labs in 4 weeks. History of pulmonary embolism 01/26/2019 History of PR (myocardial infarction) 01/26/2019 History of endometrial ablation 01/26/2019 Chronic gout of multiple sites 01/26/2019 Assessment & Plan (05/23/2024 3:55 PM CDT): No flares. Continue allopurinol Assessment & Plan (11/11/2023 10:28 AM [employer]): Continue allopurinol Assessment & Plan (12/02/2022 3:02 PM CDT): Continue allopurinol Assessment & Plan (12/02/2021 12:32 PM [employer]): Continue allopurinol. No current gout flares Assessment & Plan (05/06/2021 8:47 PM CDT): No flairs with allopurinol Assessment & Plan (12/04/2020 8:47 PM CDT): Continue allopurinol Assessment & Plan (11/27/2020 10:18 AM [employer]): Stable with allopurinol Assessment & Plan (07/27/2020 7:28 AM [employer]): Stable with allopurinol Assessment & Plan (04/23/2020 12:58 PM CDT): No current flairs Assessment & Plan (11/18/2019 9:04 PM [employer]): No current sxs or flairs. Refills to the pharmacy Assessment & Plan (10/18/2019 3:55 PM [employer]): Continue the allopurinol Vitamin D deficiency 01/26/2019 Assessment & Plan (12/02/2022 3:03 PM CDT): Supplement Assessment & Plan (12/02/2021 12:33 PM [employer]): Supplement Assessment & Plan (12/04/2020 8:46 PM CDT): supplement Assessment & Plan (04/23/2020 12:58 PM CDT): supplement Assessment & Plan (10/18/2019 3:54 PM [employer]): supplement Assessment & Plan (02/08/2019 7:31 PM CDT): Continue with otc supplement Moderate episode of recurrent major depressive d isorder 01/26/2019 Assessment & Plan (11/16/2024 12:48 AM [employer]): Depression symptoms are stable with Cymbalta 60 2 tabs daily Assessment & Plan (06/22/2024 12:44 PM CDT): Patient has had persistent depression symptoms and increased stress. Her sister had a fall and had a brain bleed x3 is now in rehab and she is giving a lot of the care. Recommend increasing the Cymbalta 30-2 tabs to make 60. Will send a new prescription for the 60 mg tablets and continue to monitor closely. She thinks it may also be helping with the pain. Follow-up in 4 months for wellness and reassess at that time. If she has any other problems she may call at any time Assessment & Plan (05/23/2024 4:07 PM CDT): Depression symptoms are stable without medication. But she is having more pain so will start Cymbalta 30 mg b.i.d.. Reviewed risks benefits alternatives side effects and proper use. Assessment & Plan (11/11/2023 10:29 AM [employer]): Stable without medication Assessment & Plan (03/24/2023 7:38 PM CDT): Stable without medication Assessment & Plan (05/06/2021 8:47 PM CDT): Currently stable without medication Assessment & Plan (07/27/2020 7:31 AM [employer]): Patient stopped her Lexapro if she felt like she no longer needed. Will continue to monitor closely. Assessment & Plan (04/23/2020 1:03 PM CDT): Stable with the lexapro. She feels better off the wellbutrin. Doesn't want to add another med at this time even with the higher screen. She is getting out and doing things she likes more (riding motorcycle). Thinks a lot is related to COVID. Assessment & Plan (10/18/2019 4:01 PM [employer]): This is a significant, separately identifiable problem that was evaluated and managed on the same day as the wellness exam Pt has been on Wellbutrin. Thinks when she increased the dose to 300mg, noted increased hand twitching/movements. Will decrease to 150mg and monitor. Assessment & Plan (04/18/2019 10:36 AM CDT): Continue Wellbutrin and Lexapro. Continue to monitor. Assessment & Plan (03/15/2019 7:21 PM CDT): Continue the Wellbutrin and Lexapro Assessment & Plan (02/08/2019 7:33 PM CDT): Tolerating the Wellbutrin. Increase to 300mg. Resolved Problems Problem Noted Date Diagnosed Date Resolved Date Pancreatic cyst 05/23/2024 06/22/2024 Overview (06/02/2024): Per Dr. Marisol Campuzano at [facility] 04/2024 clinic note ASSESSMENT: Ms. Sanchez is a 73 y.o. 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 This is a new diagnosis. PLAN: We discussed the three different types of IPMN (main duct, side branch and mixed side branch and main duct type) and that it is a pre-malignant condition. We discussed that Ms. Sanchez is currently asymptomatic and does not have any worrisome signs on imaging including solid/cystic components, hyperenhancing or non-enhancing mural nodularity, and currently the size of the lesion is < 3 cm and growth rate has been < 0.5 cm/year. As such, since the risk of malignancy is low at this time, I have recommended observation with MRI in 6 months with a CA 19-9 level. If the cyst were to increase in size, become symptomatic, or develop any worrisome features on imaging, we would consider obtaining an endoscopic ultrasound. We also discussed the role of potential surgery at that time. After our discussion, Ms. Sanchez would like to proceed with this plan. I answered all of Ms. Sanchez s questions to her satisfaction. Assessment & Plan (05/23/2024 4:11 PM CDT): This is a significant, separately identifiable problem that was evaluated and managed on the same day as the wellness exam 05/01/2024 MRI in [facility] Multiple pancreatic cysts. Intraductal pancreatic mucinous neoplasm is suspected Referral to hepatobilliary with [facility] for further evaluation Lower extremity arterial ins ufficiency, severe, right 11/11/2023 05/23/2024 Assessment & Plan (11/11/2023 11:08 AM [employer]): This is a significant, separately identifiable problem that was evaluated and managed on the same day as the wellness exam Patient had screening done by [employer] nurse at her home. It showed severe changes on the right and more mild changes on the left side regarding peripheral artery disease. Will obtain arterial study bilateral and follow-up pending those results. Patient is completely asymptomatic at this point Other dysphagia 11/11/2023 05/23/2024 Assessment & Plan (11/11/2023 10:31 AM [employer]): This is a significant, separately identifiable problem that was evaluated and managed on the same day as the wellness exam Patient is noticing dysphagia with solids. Has a history of esophageal stricture and has required dilation in the past. Prefers to be seen down at [facility]. Will place referral. Stressed importance of eating small bites to avoid choking. Dyspnea on exertion 10/18/2023 05/23/20 Chest pain 10/18/2023 05/23/2024 Sciatica of left side 09/09/20232023 Assessment & Plan (09/09/2023 3:15 PM [employer]): Onset after falling on the stairs a few days ago. Tried tramadol once and tylenol. Will give handout of home exercises and prednisone 20mg x7 days. If no improvement or symptoms recur once steroids are stopped then f/u with PCP regarding further management. BMI 26.0-26.9,adult 06/17/2023 11/11/19 24 Assessment & Plan (06/17/2023 9:56 AM CDT): Per reported home weight. Annual physical exam 03/24/2023 023 Assessment & Plan (03/24/2023 7:41 PM CDT): Encouraged healthy lifestyle, good nutrition and exercise. Encouraged Calcium and Vitamin D and weight bearing exercise for bone health. Reviewed immunizations Reviewed age appropirate screenings. BMI 29.0-29.9,adult 03/14/2023 05/23/20 24 Assessment & Plan (11/11/2023 10:32 AM [employer]): Weight/BMI is in healthy range. Continue healthy lifestyle to maintain. Assessment & Plan (03/14/2023 7:40 AM CDT): Weight/BMI is in healthy range. Continue healthy lifestyle to maintain. BMI 28.0-28.9,adult 01/22/2023 03/14/20 23 Assessment & Plan (01/22/2023 10:06 AM CDT): Weight/BMI is in healthy range. Continue healthy lifestyle to maintain. BMI 28.0-28.9,adult 01/02/2023 06/22/20 24 Assessment & Plan (05/23/2024 4:01 PM CDT): Weight/BMI is in healthy range. Continue healthy lifestyle to maintain. Assessment & Plan (01/02/2023 11:08 AM CDT): Weight/BMI is in healthy range. Continue healthy lifestyle to maintain. BMI 27.0-27.9,adult 12/28/2022 01/03/20 23 Assessment & Plan (12/28/2022 9:14 AM CDT): Weight/BMI is in healthy range. Continue healthy lifestyle to maintain. Irregular heart beat 12/28/2022 023 Assessment & Plan (12/28/2022 10:51 AM CDT): Patient with history of hypomagnesemia. She has been having difficulty even with supplementation keeping the magnesium at a normal level. She had episode of diarrhea which may be contributing to increased electrolyte abnormality. With her irregular heartbeat and feeling bad. Significant concern for arrhythmia secondary to electrolyte imbalance. She is also experiencing chest pressure which is concerning. Advised she needs immediate it evaluation at an ER. Offered ambulance transportation. She declined. States her sister will try her. Offered to call her sister to pick her up here but she prefers to drive to her own which is just a few blocks away. Stressed importance of immediate evaluation. Plans to go to [facility]. Will await recommendation Chest pressure 12/28/2022 01/20/2023 Assessment & Plan (12/28/2022 10:52 AM CDT): Patient with history of hypomagnesemia. She has been having difficulty even with supplementation keeping the magnesium at a normal level. She had episode of diarrhea which may be contributing to increased electrolyte abnormality. With her irregular heartbeat and feeling bad. Significant concern for arrhythmia secondary to electrolyte imbalance. She is also experiencing chest pressure which is concerning. Advised she needs immediate it evaluation at an ER. Offered ambulance transportation. She declined. States her sister will try her. Offered to call her sister to pick her up here but she prefers to drive to her own which is just a few blocks away. Stressed importance of immediate evaluation. Plans to go to [facility]. Will await recommendation ER done in the office is similar to previous EKGs but irregular rhythym is noted. Medicare annual wellness visit, subsequent 12/02/2022 05/23/2024 Assessment & Plan (11/11/2023 10:31 AM [employer]): Encouraged healthy lifestyle, good nutrition and exercise. Encouraged Calcium and Vitamin D and weight bearing exercise for bone health. Reviewed immunizations. Reviewed age appropirate screenings. Medicare Wellness Documentation is completed within the chart Assessment & Plan (12/02/2022 3:06 PM CDT): Encouraged healthy lifestyle, good nutrition and exercise. Encouraged Calcium and Vitamin D and weight bearing exercise for bone health. Reviewed immunizations. Reviewed age appropirate screenings. Medicare Wellness Documentation is completed within the chart BMI 29.0-29.9,adult 11/20/2022 12/29/19 23 Assessment & Plan (11/20/2022 7:58 AM [employer]): Weight/BMI is in healthy range. Continue healthy lifestyle. Obesity (BMI 30-39.9) 05/08/20222022 Assessment & Plan (05/08/2022 1:39 PM CDT): Obesity is unchanged. Discussed the patient's BMI. The BMI is above average. BMI management plan is completed. BMI Follow-up includes: nutrition counseling, exercise counseling and education provided. BMI 34.0-34.9,adult 05/08/2022 11/20/19 23 Assessment & Plan (05/08/2022 1:39 PM CDT): Obesity is unchanged. Discussed the patient's BMI. The BMI is above average. BMI management plan is completed. BMI Follow-up includes: nutrition counseling, exercise counseling and education provided. Annual physical exam 11/07/2021 022 Assessment & Plan (05/20/2022 10:31 AM CDT): Encouraged healthy lifestyle, good nutrition and exercise. Encouraged Calcium and Vitamin D and weight bearing exercise for bone health. Reviewed immunizations Reviewed age appropirate screenings. Assessment & Plan (12/02/2021 12:34 PM [employer]): Encouraged healthy lifestyle, good nutrition and exercise. Encouraged Calcium and Vitamin D and weight bearing exercise for bone health. Reviewed immunizations Reviewed age appropirate screenings. BMI 35.0-35.9,adult 11/07/2021 05/08/20 Assessment & Plan (11/07/2021 2:10 PM [employer]): Obesity is unchanged. Discussed the patient's BMI. The BMI is above average. BMI management plan is completed. BMI Follow-up includes: nutrition counseling, exercise counseling and education provided. Obesity (BMI 30-39.9) 11/07/20212021 Assessment & Plan (11/07/2021 2:11 PM [employer]): Obesity is unchanged. Discussed the patient's BMI. The BMI is above average. BMI management plan is completed. BMI Follow-up includes: nutrition counseling, exercise counseling and education provided. Obesity (BMI 30-39.9) 08/01/20212021 Assessment & Plan (08/01/2021 3:22 PM [employer]): Obesity is unchanged. Discussed the patient's BMI. The BMI is above average. BMI management plan is completed. BMI Follow-up includes: nutrition counseling, exercise counseling and education provided. BMI 34.0-34.9,adult 08/01/2021 11/07/19 Assessment & Plan (08/01/2021 3:22 PM [employer]): Obesity is unchanged. Discussed the patient's BMI. The BMI is above average. BMI management plan is completed. BMI Follow-up includes: nutrition counseling, exercise counseling and education provided. Need for vaccination 06/30/2021 024 Assessment & Plan (06/30/2021 12:07 PM CDT): Had 1st COVID vaccine 09/09/20 which caused fevers, chills, and joint pain/swelling. Joint complaints lasted well over 1 month and came here and was found to have uncontrolled lupus. 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 Discussed risk of recurrent symptoms with next 2nd dose however lupus is now better controlled so she may not have as severe of a reaction. Recommend 2nd dose of pfizer to complete the series. If she does well, then also recommend the booster (3rd dose) 28 days after the previous dose. Recurrent UTI 06/13/2021 11/11/2023 Assessment & Plan (12/15/2021 12:26 PM CDT): -No issues with UTI since last evaluation. She is taking cranberry extract pill and urinating regularly. She does report some urinary incontinence intermittently but she states she has gotten used to it. Discussed Kegel exercises. She reports she used to do them but not practicing these much anymore. PLAN: -Continue cranberry extract pill. -Continue to urinate regularly. -Practice Kegel exercises daily to help improve incontinence. She was given handout on Kegels. -F/U with urology prn Assessment & Plan (06/13/2021 10:23 AM CDT): -Reports she started on Benlysta which can increase UTI occurrence. -She admits she is not best at drinking fluids. PLAN: UTI Prevention Discussed: ~ Adequate fluid intake, at least 6-8 glasses of water a day. ~ Urinate every 2-3 hours. Do not postpone urination. ~ Practice good perineal hygiene and keep urethra clean. ~ Wipe from front to back as to not introduce bacteria into the urethra. ~ Avoid irritating chemicals like bleach, perfumes, detergent, bubble bath, etc. ~ Wear breathable undergarments like cotton. ~ Urinate after intercourse. ~ Try a high acidic diet as acidic urine helps decrease UTI. In addition, try cranberry extract pill daily. ~ Avoid constipation ~ Avoid bladder irritants such as caffeinated beverages, carbonated drinks, fruit juices, citrus fruits and drinks, artificial sweeteners, spicy foods, and tobacco use. ~If you have uncontrolled diabetes, work to improve blood sugars. ~ For females, treat any vaginal infection promptly. -Renal US ordered. Medicare annual wellness visit, subsequent 05/06/2021 12/02/2021 Assessment & Plan (05/06/2021 8:48 PM CDT): Encouraged healthy lifestyle, good nutrition and exercise. Encouraged Calcium and Vitamin D and weight bearing exercise for bone health. Reviewed immunizations. Reviewed age appropirate screenings. Medicare Wellness Documentation is completed within the chart Dysuria 05/06/2021 11/11/2023 Assessment & Plan (05/06/2021 8:49 PM CDT): Send urine Obesity (BMI 30-39.9) 05/01/20212020 Assessment & Plan (05/01/2021 4:43 PM CDT): Obesity is unchanged. Discussed the patient's BMI. The BMI is above average. BMI management plan is completed. BMI Follow-up includes: nutrition counseling, exercise counseling and education provided. BMI 32.0-32.9,adult 05/01/2021 08/01/20 21 Assessment & Plan (05/01/2021 4:43 PM CDT): Obesity is unchanged. Discussed the patient's BMI. The BMI is above average. BMI management plan is completed. BMI Follow-up includes: nutrition counseling, exercise counseling and education provided. History of UTI 03/31/2021 12/02/2021 Assessment & Plan (05/06/2021 8:46 PM CDT): This is a significant, separately identifiable problem that was evaluated and managed on the same day as the wellness exam Recheck Urine as patient is not feeling well today which is how she has been presenting. Dip does have blood. Will await culture. Assessment & Plan (03/31/2021 12:27 PM CDT): Recent asymptomatic UTI however developed lymphadenopathy in her neck so was started on bactrim with resolve of symptoms as well as improvement of her generalized pain complaints. Will repeat UA today and if found to have UTI will start abx. Acute cystitis without hematuria 01/16/2021 05/06/2021 Assessment & Plan (01/16/2021 1:40 PM CDT): Patient is responding to the Bactrim. Her systemic symptoms are improved. She is to complete the Bactrim. Continue to push fluids. Monitor symptoms closely. Will have her return at the end of the week for a test of cure urine culture to confirm cure due to the prolonged duration of this infection. If her symptoms worsen or return she is to follow up immediately Frequency of urination 01/14/202112/02 Assessment & Plan (01/14/2021 2:56 PM CDT): Had discussed her symptoms at length that with the known longstanding positive culture she could be septic which could be contributing to why she is feeling the way she is. Discussed referral to ER for immediate evaluation but she declines at this time and wants to complete this workup outpatient. Reviewed with her warning signs that would require her to return to the ED not limited to spiking a fever sustained over 102 as well as increased abdominal or flank pain or chills and sweats. She voiced understanding. Known UTI by culture for the last few months the was left untreated as she was not symptomatic. She is on immuno suppressive medications for her rheumatoid arthritis. Will go ahead and start Bactrim DS 1 tablet b.i.d. Check labs for white blood cell count as well as renal function. Obesity (BMI 30-39.9) 01/12/20212020 Assessment & Plan (01/16/2021 1:20 PM CDT): Obesity is unchanged. Discussed the patient's BMI. The BMI is above average. BMI management plan is completed. BMI Follow-up includes: nutrition counseling, exercise counseling and education provided. Assessment & Plan (01/12/2021 2:04 PM CDT): Obesity is unchanged. Discussed the patient's BMI. The BMI is above average. BMI management plan is completed. BMI Follow-up includes: nutrition counseling, exercise counseling and education provided. BMI 33.0-33.9,adult 01/12/2021 05/01/20 Assessment & Plan (01/16/2021 1:20 PM CDT): Obesity is unchanged. Discussed the patient's BMI. The BMI is above average. BMI management plan is completed. BMI Follow-up includes: nutrition counseling, exercise counseling and education provided. Assessment & Plan (01/12/2021 2:04 PM CDT): Obesity is unchanged. Discussed the patient's BMI. The BMI is above average. BMI management plan is completed. BMI Follow-up includes: nutrition counseling, exercise counseling and education provided. Obesity (BMI 30-39.9) 11/29/20202020 Assessment & Plan (11/29/2020 3:13 PM [employer]): Obesity is unchanged. Discussed the patient's BMI. The BMI is above average. BMI management plan is completed. BMI Follow-up includes: nutrition counseling, exercise counseling and education provided. BMI 34.0-34.9,adult 11/29/2020 01/13/20 Assessment & Plan (11/29/2020 3:14 PM [employer]): Obesity is unchanged. Discussed the patient's BMI. The BMI is above average. BMI management plan is completed. BMI Follow-up includes: nutrition counseling, exercise counseling and education provided. BMI 34.0-34.9,adult 09/27/2020 11/30/19 Assessment & Plan (09/27/2020 3:12 PM [employer]): Obesity is unchanged. Discussed the patient's BMI. The BMI is above average. BMI management plan is completed. BMI Follow-up includes: nutrition counseling, exercise counseling and education provided. Arthralgia 07/27/2020 05/23/2024 Assessment & Plan (11/27/2020 10:13 AM [employer]): Refer to Rheum for further evaluation as joint pain probably related to Autoimmune. Medicare annual wellness visit, subsequent 04/23/2020 07/27/2020 Assessment & Plan (04/23/2020 1:01 PM CDT): Encouraged healthy lifestyle, good nutrition and exercise. Encouraged Calcium and Vitamin D and weight bearing exercise for bone health. Reviewed immunizations. Reviewed age appropirate screenings. Medicare Wellness Documentation is completed within the chart Other fatigue 10/25/2019 05/23/2024 Assessment & Plan (05/20/2022 10:31 AM CDT): Probably multifactorial. Check labs and followup to re-evaluate Assessment & Plan (10/25/2019 3:30 PM [employer]): Check labs Annual physical exam 10/18/2019 021 Assessment & Plan (12/04/2020 8:49 PM CDT): Encouraged healthy lifestyle, good nutrition and exercise. Encouraged Calcium and Vitamin D and weight bearing exercise for bone health. Reviewed immunizations Reviewed age appropirate screenings. Assessment & Plan (10/18/2019 4:00 PM [employer]): Encouraged healthy lifestyle, good nutrition and exercise. Encouraged Calcium and Vitamin D and weight bearing exercise for bone health. Reviewed immunizations Reviewed age appropirate screenings. BMI 31.0-31.9,adult 10/14/2019 04/23/20 20 Assessment & Plan (11/18/2019 3:14 PM [employer]): BMI Follow-up includes: Discussed diet and exercising counseling. Assessment & Plan (10/18/2019 3:56 PM [employer]): Obesity is unchanged. Discussed the patient's BMI. The BMI is above average. BMI management plan is completed. BMI Follow-up includes: nutrition counseling, exercise counseling and education provided. Fall 06/07/2019 05/23/2024 Assessment & Plan (06/07/2019 11:35 PM CDT): Check xrays. BMI 32.0-32.9,adult 04/08/2019 10/14/19 Assessment & Plan (05/13/2019 11:34 AM CDT): Obesity is unchanged. Discussed the patient's BMI. The BMI is above average. BMI management plan is completed. BMI Follow-up includes: nutrition counseling, exercise counseling and education provided. Assessment & Plan (04/08/2019 11:23 AM CDT): Obesity is unchanged. Discussed the patient's BMI. The BMI is above average; BMI management plan is completed. General weight loss/lifestyle modification strategies discussed (elicit support from others; identify saboteurs; non-food rewards, etc). Encouraged increased exercise. Dizziness 04/08/2019 05/23/2024 Assessment & Plan (10/25/2019 3:30 PM [employer]): EKG in the office today was similar to previous ones. No active changes. Stressed if has CP, syncope, pain with exertion she is to go the ER immediately. She voices understanding. Assessment & Plan (04/18/2019 10:39 AM CDT): Unknown etiology. Continue to correct the TSH. Check labs Work up bruit with Carotid US. If negative may consider head scan vs cardiac workup. Bruit of left carotid artery 04/08/2019 12/28/2022 Assessment & Plan (10/18/2019 3:53 PM [employer]): Cartotid US done 2018. No significant blockage. Assessment & Plan (04/18/2019 10:28 AM CDT): Check (B) carotid bruits BMI 34.0-34.9,adult 03/03/2019 09/27/19 21 Assessment & Plan (04/23/2020 12:56 PM CDT): Obesity is unchanged. Discussed the patient's BMI. The BMI is above average. BMI management plan is completed. BMI Follow-up includes: nutrition counseling, exercise counseling and education provided. Assessment & Plan (03/03/2019 11:02 AM CDT): Obesity is unchanged. Discussed the patient's BMI. The BMI is above average; BMI management plan is completed. General weight loss/lifestyle modification strategies discussed (elicit support from others; identify saboteurs; non-food rewards, etc). Encouraged increased exercise. BMI 34.0-34.9,adult 01/27/2019 03/03/20 19 Assessment & Plan (01/27/2019 9:24 AM CDT): Obesity is unchanged. Discussed the patient's BMI. The BMI is above average; BMI management plan is completed. General weight loss/lifestyle modification strategies discussed (elicit support from others; identify saboteurs; non-food rewards, etc). Obesity (BMI 30-39.9) 01/27/20192020 Assessment & Plan (11/27/2020 10:17 AM [employer]): Obesity is unchanged. Discussed the patient's BMI. The BMI is above average. BMI management plan is completed. BMI Follow-up includes: nutrition counseling, exercise counseling and education provided. Assessment & Plan (07/27/2020 7:25 AM [employer]): Obesity is unchanged. Discussed the patient's BMI. The BMI is above average. BMI management plan is completed. BMI Follow-up includes: nutrition counseling, exercise counseling and education provided. Assessment & Plan (04/23/2020 12:58 PM CDT): Obesity is unchanged. Discussed the patient's BMI. The BMI is above average. BMI management plan is completed. BMI Follow-up includes: nutrition counseling, exercise counseling and education provided. Assessment & Plan (11/18/2019 3:14 PM [employer]): BMI Follow-up includes: Discussed diet and exercising counseling. Assessment & Plan (10/14/2019 9:53 AM [employer]): Obesity is unchanged. Discussed the patient's BMI. The BMI is above average. BMI management plan is completed. BMI Follow-up includes: nutrition counseling, exercise counseling and education provided. Assessment & Plan (05/13/2019 11:34 AM CDT): Obesity is unchanged. Discussed the patient's BMI. The BMI is above average. BMI management plan is completed. BMI Follow-up includes: nutrition counseling, exercise counseling and education provided. Assessment & Plan (04/08/2019 11:22 AM CDT): Obesity is unchanged. Discussed the patient's BMI. The BMI is above average; BMI management plan is completed. General weight loss/lifestyle modification strategies discussed (elicit support from others; identify saboteurs; non-food rewards, etc). Encouraged increased exercise. Assessment & Plan (03/03/2019 11:02 AM CDT): Obesity is unchanged. Discussed the patient's BMI. The BMI is above average; BMI management plan is completed. General weight loss/lifestyle modification strategies discussed (elicit support from others; identify saboteurs; non-food rewards, etc). Encouraged increased exercise. Assessment & Plan (01/27/2019 9:23 AM CDT): Obesity is unchanged. Discussed the patient's BMI. The BMI is above average; BMI management plan is completed. General weight loss/lifestyle modification strategies discussed (elicit support from others; identify saboteurs; non-food rewards, etc). Chronic kidney disease, stage 3 01/26/2019 12/02/2022 Assessment & Plan (12/02/2021 12:31 PM [employer]): Avoid nephrotoxic drugs including NSAIDs. Monitor labs. Assessment & Plan (05/06/2021 8:45 PM CDT): Avoid nephrotoxic drugs including NSAIDs. Monitor labs. Assessment & Plan (01/14/2021 2:56 PM CDT): Avoid nephrotoxic drugs including NSAIDs. Monitor labs. Assessment & Plan (12/04/2020 8:46 PM CDT): Avoid nephrotoxic drugs including NSAIDs. Monitor labs. Assessment & Plan (11/27/2020 10:17 AM [employer]): Caution with NSAIDs Assessment & Plan (07/27/2020 7:25 AM [employer]): Avoid nephrotoxic drugs including NSAIDs. Monitor labs. Assessment & Plan (04/23/2020 12:58 PM CDT): Avoid nephrotoxic drugs including NSAIDs. Monitor labs. Assessment & Plan (10/18/2019 3:54 PM [employer]): Avoid nephrotoxic drugs including NSAIDs. Monitor labs. Has been stable. Continue to monitor Assessment & Plan (02/08/2019 7:32 PM CDT): Avoid nephrotoxic drugs including NSAIDs. Monitor labs. Rebounded with cessation of the NSAID. Continue to follow closely Gastroesophageal reflux dise ase without esophagitis 01/26/2019 12/28/2022 Assessment & Plan (12/02/2022 3:02 PM CDT): Continue esomeprazole Assessment & Plan (08/01/2022 3:07 PM [employer]): -symptoms well controlled with Nexium 20 mg daily. Will continue. Assessment & Plan (04/11/2022 11:14 AM CDT): -symptoms well controlled with Nexium 20 mg daily. Will continue. Assessment & Plan (12/02/2021 12:32 PM [employer]): Continue PPI just enough to manage her symptoms. Assessment & Plan (08/20/2021 8:38 PM [employer]): Continue PPI. Will try did decrease it to maybe once a week or every other day to see if the magnesium stabilizes but her GERD symptoms are controlled. Assessment & Plan (05/06/2021 8:44 PM CDT): Stable with PPI Assessment & Plan (12/04/2020 8:46 PM CDT): Continue PPI Assessment & Plan (04/23/2020 12:58 PM CDT): Continue PPI Assessment & Plan (10/18/2019 3:54 PM [employer]): Continue PPI Assessment & Plan (02/08/2019 7:31 PM CDT): Stable with the Esomeprazole. Hyperglycemia 01/26/2019 05/23/2024 Assessment & Plan (12/02/2022 3:03 PM CDT): Pre-diabetes/hyperglycemia is a precursor to Dm. Stressed importance of working on diet (decrease your simple sugars and one carbohydrate with each meal) and increase you exercise to achieve weight loss and this will help prevent you from progressing to diabetes. Assessment & Plan (05/20/2022 10:31 AM CDT): Pre-diabetes/hyperglycemia is a precursor to Dm. Stressed importance of working on diet (decrease your simple sugars and one carbohydrate with each meal) and increase you exercise to achieve weight loss and this will help prevent you from progressing to diabetes. Assessment & Plan (12/02/2021 12:33 PM [employer]): Pre-diabetes/hyperglycemia is a precursor to Dm. Stressed importance of working on diet (decrease your simple sugars and one carbohydrate with each meal) and increase you exercise to achieve weight loss and this will help prevent you from progressing to diabetes. Assessment & Plan (05/06/2021 8:44 PM CDT): Pre-diabetes/hyperglycemia is a precursor to Dm. Stressed importance of working on diet (decrease your simple sugars and one carbohydrate with each meal) and increase you exercise to achieve weight loss and this will help prevent you from progressing to diabetes. Assessment & Plan (12/04/2020 8:47 PM CDT): Pre-diabetes/hyperglycemia is a precursor to Dm. Stressed importance of working on diet (decrease your simple sugars and one carbohydrate with each meal) and increase you exercise to achieve weight loss and this will help prevent you from progressing to diabetes. Assessment & Plan (11/27/2020 10:18 AM [employer]): Pre-diabetes/hyperglycemia is a precursor to Dm. Stressed importance of working on diet (decrease your simple sugars and one carbohydrate with each meal) and increase you exercise to achieve weight loss and this will help prevent you from progressing to diabetes. Assessment & Plan (07/27/2020 7:29 AM [employer]): Pre-diabetes is a precursor to Dm. Stressed importance of working on diet (decrease your simple sugars and one carbohydrate with each meal) and increase you exercise to achieve weight loss and this will help prevent you from progressing to diabetes. Assessment & Plan (04/23/2020 12:59 PM CDT): Pre-diabetes/hyperglycemia is a precursor to Dm. Stressed importance of working on diet (decrease your simple sugars and one carbohydrate with each meal) and increase you exercise to achieve weight loss and this will help prevent you from progressing to diabetes. Assessment & Plan (11/18/2019 9:05 PM [employer]): Pre-diabetes/hyperglycemia is a precursor to Dm. Stressed importance of working on diet (decrease your simple sugars and one carbohydrate with each meal) and increase you exercise to achieve weight loss and this will help prevent you from progressing to diabetes. Assessment & Plan (10/25/2019 3:29 PM [employer]): Pre-diabetes/hyperglycemia is a precursor to Dm. Stressed importance of working on diet (decrease your simple sugars and one carbohydrate with each meal) and increase you exercise to achieve weight loss and this will help prevent you from progressing to diabetes. Assessment & Plan (10/18/2019 3:55 PM [employer]): Pre-diabetes/hyperglycemia is a precursor to Dm. Stressed importance of working on diet (decrease your simple sugars and one carbohydrate with each meal) and increase you exercise to achieve weight loss and this will help prevent you from progressing to diabetes. Assessment & Plan (03/15/2019 7:20 PM CDT): Pre-diabetes is a precursor to Dm. Stressed importance of working on diet (decrease your simple sugars and one carbohydrate with each meal) and increase you exercise to achieve weight loss and this will help prevent you from progressing to diabetes. Assessment & Plan (02/08/2019 7:32 PM CDT): Pre-diabetes/hyperglycemia is a precursor to Dm. Stressed importance of working on diet (decrease your simple sugars and one carbohydrate with each meal) and increase you exercise to achieve weight loss and this will help prevent you from progressing to diabetes. Immunizations Immunization Administration Dates Next Due Influenza, Trivalent, High D ose, Split, Preservative Free, Intramuscular 07/23/2019 Influenza, Unspecified 07/09/2024,2022,10/24/2022(Defer red: Patient Refused),10/24/2022(Deferred: Patient Refused),06/23/2022,11/07/2021(Deferre d: Patient Refused),06/23/2020 [employer] ([employer]) SARS-CoV-2 Vaccination 06/23/2022 Pfizer SARS-CoV-2 Monovalent Vaccination (12+ Yrs) PURPLE 09/09/2020 Pfizer Sars-Cov-2 Bivalent V accination (12+ YRS) 06/29/2022 Pneumococcal Conjugate PCV 13 04/16/2017 Pneumococcal Polysaccharide PPV23 09/22/2011 Tdap 04/03/2016 Social History Tobacco Use Types Packs/Day Years Used Date Smoking Tobacco: Never Passive Smoke Exposure: Past Smokeless Tobacco: Never Tobacco Cessation:Counseling Given: No Alcohol Use Standard Drinks/Week Comments Never 0 (1 standard drink = 0.6 oz pur e alcohol) [facility] Utilities Answer Date Recorded In the past 12 months has [employer], gas, oil, or water [employer] threatened to shut off services in your home? No 09/28/2024 Social Connection and Isolation Panel [NHANES] A nswer Date Recorded In a typical week, how many times do you talk on the phone with family, friends, or neighbors? Three times a week 09/28/19 How often do you get togethe r with friends or relatives? Three times a week 09/28/2024 How often do you attend chur ch or mandaeism services? 1 to 4 times per year 09/28/2024 Do you belong to any clubs o r organizations such as mandaen groups, unions, fraternal or athletic groups, or [...] any time in the past [address] [facility], were you homeless or living in a long term (including now)? No 09/28/2024 Personal Safety Answer Date Recorded Have you ever been in or are you currently in a harmful physical or emotional relationship or is someone making you feel afraid or unsafe? 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 Not on file Not on file Last Filed Vital Signs Vital Sign Reading Time Taken Comments Blood Pressure 139/96 11/05/2024 12:20 AM [employer] Pulse 97 11/05/2024 12:20 AM [employer] Temperature 36.8 C (98.2 F) 11/04/2024 4:58 PM [employer] Respiratory Rate 24 11/05/2024 12:20 AM [employer] Oxygen Saturation 95% 11/05/2024 12:20 AM [employer] Inhaled Oxygen Concentration - - Weight 61.9 kg (136 lb 8 oz) 10/29/2024 10:36 AM [employer] Height 154.9 cm (5' 1 ) 10/29/2024 10:36 AM [employer] Body Mass Index 25.79 10/29/2024 10:36 AM [employer] Plan of Treatment Not on file Medical Devices Implanted Type Area Installment Account Checker Device Identifier Shelf Expiration Date Model / Serial / Lot Outcome Referrals Angio-Seal Vip 6fr Closere Device [id number] - [id number] - [id number] Implanted:Qty : 1 on 10/31/2023 by Garth Ireland MD at [facility] Vascular Closure Device Right: Common Femoral Artery Therapeutic Proteins Lisa 07/23/2024 [id number] / [id number] / [id number] Procedures Procedure Name Priority Date/Time Associated Diagnosis Comments CT HEAD WO CONTRAST ED 11/05/2024 12:53 [address] [employer] [address] LUMBAR SPINE WO CONTRAST ED 11/05/2024 12:53 AM [employer] EGFR STAT 11/04/2024 9:38 PM [employer] DIFFERENTIAL AUTO STAT 11/04/2024 9:3 8 PM [employer] CRP (ACUTE PHASE) STAT 11/04/2024 9:3 8 PM [employer] ERYTHROCYTE SEDIMENTATION RATE STAT 11/04/2024 9:38 PM [employer] COMPREHENSIVE METABOLIC PANEL STAT 11/04/2024 9:38 PM [employer] CBC WITH AUTO DIFFERENTIAL STAT 11/04/2024 9:38 PM [employer] PAIN MGMT IMAGING LUMBAR/SACRAL SELECTIVE NERVE ROOT INJ (TFE) BILATERAL Schedule Routine, Read Routine (OP Routine) 10/30/2024 9:36 AM [employer] Lumbar radiculopathy XR PELVIS 1 OR 2 VIEWS Schedule Routine, Read Routine (OP Routine) 10/23/2024 12:48 PM [employer] Radicular pain of both lower extremities XR SPINE THORACIC 3 VIEWS Schedule Routine, Read Routine (OP Routine) 10/23/2024 12:48 PM [employer] Acute exacerbation of chronic low back pain XR SPINE LUMBAR COMPLETE 4 OR MORE VIEWS Schedule Routine, Read Routine (OP Routine) 10/23/2024 12:48 PM [employer] Acute exacerbation of chronic low back pain XR TIBIA FIBULA RIGHT2 VIEWS IP Routine 09/30/2024 1:35 PM [employer] EGFR Routine 09/30/2024 7:48 AM [employer] BASIC METABOLIC PANEL Routine 09/30/2024 7:48 AM [employer] FL FLUOROSCOPY < 1 HOUR IP Routine 09/29/2024 12:45 PM [employer] INJECTION TRANSFORAMINAL LUMBO/SACRAL 1 LEVEL 09/29/2024 12:30 PM [employer] Lumbar radiculopathy US VEIN DUPLEX LOWER EXTREMITY RIGHT LIMITED IP Routine 09/28/2024 11:34 AM [employer] EGFR Routine 09/26/2024 4:44 AM [employer] BASIC METABOLIC PANEL Routine 09/26/2024 4:44 AM [employer] EGFR Timed 09/25/2024 3:50 PM [employer] MAGNESIUM Timed 09/25/2024 3:50 PM [employer] BASIC METABOLIC PANEL Timed 09/25/2024 3:50 PM [employer] URINALYSIS, MICROSCOPIC ONLY STAT 09/25/2024 5:49 AM [employer] URINALYSIS AND REFLEX TO MICROSCOPIC AND CULTURE STAT 09/25/2024 5:[address] LUMBAR SPINE WO CONTRAST ED 09/25/2024 4:05 AM [employer] MAGNESIUM STAT 09/25/2024 3:37 AM [employer] PHOSPHORUS STAT 09/25/2024 3:37 AM [employer] POTASSIUM LEVEL STAT 09/25/2024 3:37 AM [employer] EGFR STAT 09/25/2024 1:59 AM [employer] BASIC METABOLIC PANEL STAT 09/25/2024 1:59 AM [employer] XR SPINE LUMBAR 2 OR 3 VIEWS ED 09/24/2024 8:56 PM [employer] EGFR STAT 09/24/2024 6:59 PM [employer] DIFFERENTIAL AUTO STAT 09/24/2024 6:5 9 PM [employer] COMPREHENSIVE METABOLIC PANEL STAT 09/24/2024 6:59 PM [employer] CBC WITH AUTO DIFFERENTIAL STAT 09/24/2024 6:59 PM [employer] ECG 12-LEAD STAT 09/24/2024 6:46 PM [employer] DEXA AXIAL SKELETON BONE DENSITY 1 OR MORE SITES Schedule Routine, Read Routine (OP Routine) 12/13/2023 2:29 PM CDT Menopause 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 Schedule Routine, Read Routine (OP Routine) 07/19/2023 9:47 AM CDT Screening mammogram, encounter for HEPATITIS PANEL, ACUTE Routine 10/18/2020 11:19 AM [employer] HM COLONOSCOPY Routine 10/07/2020 from Last 3 Months or Most Recently Relevant to Health Maintenance Results * CT Lumbar Spine WO Contrast (11/05/2024 12:53 AM [employer]) Anatomical Region Laterality Modality Spine N/A Computed Tomogra phy 11/05/2024 12:5 9 AM [employer] Narrative 11/05/2024 1:11 AM [employer] EXAM DESCRIPTION: CT LUMBAR SPINE WO CONTRAST REASON FOR STUDY: acute on chronic back pain with recent epidural 10/30 --- r/o epidural abscess To ER with chronic back pain. States she has had multiple epidurals and was admitted to this hospital for intractable pain in September. States she had a block done on 10/30 which helped somewhat but the pain has become unbearable. She has been taking extra strength tylenol without improvement. Pt acting different with unknown cause, pt answering in word jumbles and not following instructions correctly, pt moving during scans and reminded to hold still, positioning aids used TECHNIQUE: Axial images acquired through the lumbar spine without intravenous contrast. Reconstructed coronal and sagittal MPR images reviewed. All images stored on PACS. Automated exposure control was used as a dose optimization technique for this examination. COMPARISON: 09/25/2024 FINDINGS: VERTEBRAE: Vertebral bodies are normal in height and alignment. Advanced disc disease and facet arthropathy with some scoliosis. No fracture, malalignment, or suspicious osseous lesion is seen. Atyb-se-gznzyxgt multilevel central canal and neural foraminal narrowing. OTHER OSSEOUS: Hip and SI joint arthrosis. SOFT TISSUES: Sigmoid diverticulosis. Questionable wall thickening of the distal sigmoid colon. IMPRESSION: 1. No epidural filling defect is seen but visualization is suboptimal with CT. Degenerative change with moderate multilevel central canal and neural foraminal narrowing grossly stable from 09/25/2024. 2. Questionable sigmoid colon wall thickening. Colonoscopy correlation recommended if not recently performed. THIS IS AN ELECTRONICALLY VERIFIED FINAL REPORT 11/05/2024 1:11 AM - Electronically signed by Dixon HEREDIA T: Report ID: [id number] Reading Location: [id number] Procedure Note Dixon Sood MD - 11/05/2024 EXAM DESCRIPTION: CT LUMBAR SPINE WO CONTRAST REASON FOR STUDY: acute on chronic back pain with recent epidural 10/30--- r/o epidural abscess To ER with chronic back pain. States she has had multiple epidurals andwas admitted to this hospital for intractable pain in September. States she hada block done on 10/30 which helped somewhat but the pain has becomeunbearable. She has been taking extra strength tylenol without improvement. Ptacting different with unknown cause, pt answering in word jumbles and notfollowing instructions correctly, pt moving during scans and reminded to hold still, positioning aids used TECHNIQUE: Axial images acquired through the lumbar spine withoutintravenous contrast. Reconstructed coronal and sagittal MPR images reviewed. Allimages stored on PACS. Automated exposure control was used as a dose optimization technique forthis examination. COMPARISON: 09/25/2024 FINDINGS: VERTEBRAE: Vertebral bodies are normal in height and alignment.Advanced disc disease and facet arthropathy with some scoliosis. No fracture, malalignment, or suspicious osseous lesion is seen. Iafe-hg-qciztnld multilevel central canal and neural foraminal narrowing. OTHER OSSEOUS: Hip and SI joint arthrosis. SOFT TISSUES: Sigmoid diverticulosis. Questionable wall thickening ofthe distal sigmoid colon. IMPRESSION: 1. No epidural filling defect is seen but visualization is suboptimalwith CT. Degenerative change with moderate multilevel central canal and neural foraminal narrowing grossly stable from 09/25/2024. 2. Questionable sigmoid colon wall thickening. Colonoscopy correlation recommended if not recently performed. THIS IS AN ELECTRONICALLY VERIFIED FINAL REPORT 11/05/2024 1:11 AM - Electronically signed by Dixon HEREDIA T: Report ID: [id number] Reading Location: [id number] [facility] [place] DO [facility] CT PROCEDURES Final Result * CT Head WO Contrast (11/05/2024 12:53 AM [employer]) Anatomical Region Laterality Modality Head and Neck N/A Computed Tomogra phy 11/05/2024 1:11 AM [employer] Narrative 11/05/2024 1:13 AM [employer] EXAM DESCRIPTION: CT HEAD WO CONTRAST REASON FOR STUDY: Mental status change, unknown cause To ER with chronic back pain. States she has had multiple epidurals and was admitted to this hospital for intractable pain in September. States she had a block done on 10/30 which helped somewhat but the pain has become unbearable. She has been taking extra strength tylenol without improvement. Pt acting different with unknown cause, pt answering in word jumbles and not following instructions correctly, pt moving during scans and reminded to hold still, positioning aids used TECHNIQUE: Axial images acquired through the brain without intravenous contrast. Images stored on PACS. Automated exposure control was used as a dose optimization technique for this examination. COMPARISON: 11/04/2022 FINDINGS: BRAIN: No mass, hemorrhage, or recent infarct. Xwyk-xz-npdxvrka chronic white matter ischemia. Volume within normal limits for age. VASCULAR: No dense vessel or obvious aneurysm. EXTRA-AXIAL SPACES: No mass or fluid collection. ORBITS/GLOBES: Unremarkable. SOFT TISSUES: Unremarkable. BONES/SINUSES: No fracture or lesion. Paranasal sinuses and other skullbase airspaces are clear. IMPRESSION: No acute abnormality identified. THIS IS AN ELECTRONICALLY VERIFIED FINAL REPORT 11/05/2024 1:13 AM - Electronically signed by Dixon HEREDIA T: Report ID: [id number] Reading Location: [id number] Procedure Note Dixon Sood MD - 11/05/2024 EXAM DESCRIPTION: CT HEAD WO CONTRAST REASON FOR STUDY: Mental status change, unknown cause To ER with chronic back pain. States she has had multiple epidurals andwas admitted to this hospital for intractable pain in September. States she hada block done on 10/30 which helped somewhat but the pain has becomeunbearable. She has been taking extra strength tylenol without improvement. Ptacting different with unknown cause, pt answering in word jumbles and notfollowing instructions correctly, pt moving during scans and reminded to hold still, positioning aids used TECHNIQUE: Axial images acquired through the brain without intravenous contrast. Images stored on PACS. Automated exposure control was used asa dose optimization technique for this examination. COMPARISON: 11/04/2022 FINDINGS: BRAIN: No mass, hemorrhage, or recent infarct. Deit-yo-ohqrvijf chronic white matter ischemia. Volume within normal limits for age. VASCULAR: No dense vessel or obvious aneurysm. EXTRA-AXIAL SPACES: No mass or fluid collection. ORBITS/GLOBES: Unremarkable. SOFT TISSUES: Unremarkable. BONES/SINUSES: No fracture or lesion. Paranasal sinuses and otherskullbase airspaces are clear. IMPRESSION: No acute abnormality identified. THIS IS AN ELECTRONICALLY VERIFIED FINAL REPORT 11/05/2024 1:13 AM - Electronically signed by Dixon Sood M.D. AR T: Report ID: [id number] Reading Location: [place] [id number] [address] PROCEDURES Final Result * eGFR (11/04/2024 9:38 PM [employer]) eGFR 68 >=60 mL/min/1. 73 m2 Comment: Interpretive Data Reference Interval Normal >/= 90 mL/min/1.73m2 Mildly decreased* 60 - 89 mL/min/1.73m2 Mildly to moderately decreased 45 - 59 mL/min/1.73m2 Moderately to severely decreased 30 - 44 mL/min/1.73m2 Severely decreased 15 - 29 mL/min/1.73m2 Kidney Failure < 15 mL/min/1.73m2 *Relative to young adult level Estimated glomerular filtration rate is determined by the 2020 CKD-EPI equation recommended by the National Kidney Foundation (A Unifying Approach to GFR Estimation: Recommendations of the NKF-ASK Task Force on Reassessing the Inclusion of Race in Diagnosing Kidney Disease, JASN 2020). The CKD-EPI equation should not be used for patients with unstable renal function and has not been validated in children and those over 70. Current interpretive data was last reviewed 2021. Blood 11/04/2024 9:38 PM [employer] 11/04/2024 9:48 PM [employer] us Yogesh AVELAR LAB BLOOD ORDERABLES Final R esult NIKOLAI [address] [facility] Department [place] [address] * (ABNORMAL) Differential, auto (11/04/2024 9:38 PM [employer]) Pathologist [facility] Neutrophil abs 8.3(H) 1.5 - 6.5 K/cumm Imm gran abs 0.1 0.0 - 0.1 K/cumm [facility] Lymphocyte abs 1.8 0.8 - 3.3 K/cumm [facility] Monocyte abs 1.1(H) 0.2 - 0.8 K/cumm [facility] Eosinophil abs 0.0 0.0 - 0.5 K/cumm [facility] Basophil abs 0.0 0.0 - 0.1 K/cumm [facility] Neutrophil pct 73.2 % [facility] Comment: Interpretive Data Percent cell count reference ranges are not reported, since discordance with absolute values may lead to misinterpretation of CBC data. Current Interpretive Data was last revised on 2017. Imm gran pct 0.7 % [facility] Comment: Interpretive Data Percent cell count reference ranges are not reported, since discordance with absolute values may lead to misinterpretation of CBC data. Current Interpretive Data was last revised on 2017. Lymphocyte pct 16.0 % [facility] Comment: Interpretive Data Percent cell count reference ranges are not reported, since discordance with absolute values may lead to misinterpretation of CBC data. Current Interpretive Data was last revised on 2017. Monocyte pct 9.4 % [facility] Comment: Interpretive Data Percent cell count reference ranges are not reported, since discordance with absolute values may lead to misinterpretation of CBC data. Current Interpretive Data was last revised on 2017. Eosinophil pct 0.4 % [facility] Comment: Interpretive Data Percent cell count reference ranges are not reported, since discordance with absolute values may lead to misinterpretation of CBC data. Current Interpretive Data was last revised on 2017. Basophil pct 0.3 % [facility] Comment: Interpretive Data Percent cell count reference ranges are not reported, since discordance with absolute values may lead to misinterpretation of CBC data. Current Interpretive Data was last revised on 2017. Blood 11/04/2024 9:38 PM [employer] 11/04/2024 9:48 PM [employer] Yogesh AVELAR LAB BLOOD ORDERABLES Final R esult Performing Organization Address [facility] Co de Phone Number [address] [place] [address] * (ABNORMAL) CBC with auto differential (11/04/2024 9:38 PM [employer]) WBC 11.3(H) 3.8 - 9.9 K/cumm Hgb 11.5(L) 11.9 - 15.5 g/dL [facility] Hct 33.4(L) 35.6 - 45.5 % [facility] Plt 314 150 - 400 K/cumm [facility] MPV 9.4 9.1 - 12.3 fL [facility] RBC 3.47(L) 3.90 - 5.20 M/cumm [facility] MCV 96.3 81.3 - 96.4 fL [facility] MCH 33.1 27.1 - 33.3 pg [facility] MCHC 34.4 32.3 - 35.7 g/dL [facility] RDW CV 13.7 11.1 - 14.9 % [facility] RDW SD 48.1 35.7 - 48.1 fL [facility] NRBC abs 0.00 0.00 - 0.01 K/cumm [facility] Blood 11/04/2024 9:38 PM [employer] 11/04/2024 9:48 PM [employer] Yogesh AVELAR LAB BLOOD ORDERABLES Final R esult Performing Organization Address [facility] Co de Phone Number [address] [place] [address] * (ABNORMAL) Erythrocyte sedimentation rate (11/04/2024 9:38 PM [employer]) [facility] Erythrocyte sedimentation rate 96(H) 1 - 30 mm/hr Blood 11/04/2024 9:38 PM [employer] 11/04/2024 9:48 PM [employer] Yogesh AVELAR LAB BLOOD ORDERABLES Final R esult Performing Organization Address [facility] de Phone Number [address] [place] [address] * (ABNORMAL) CRP (acute phase) (11/04/2024 9:38 PM [employer]) [facility] CRP 190.0(H) <=10.0 mg/L Blood 11/04/2024 9:38 PM [employer] 11/04/2024 9:48 PM [employer] Yogesh AVELAR LAB BLOOD ORDERABLES Final R esult Performing Organization Address [facility] de Phone Number [address] [address] * (ABNORMAL) Comprehensive metabolic panel (11/04/2024 9:38 PM [employer]) [facility] Sodium 133(L) 135 - 145 mmol/L Potassium, pl 3.1(L) 3.3 - 4.9 mmol/L [facility] Chloride 96(L) 97 - 110 mmol/L [facility] CO2 19(L) 22 - 32 mmol/L [facility] Anion gap 18(H) 2 - 15 mmol/L [facility] BUN 25 6 - 25 mg/dL [facility] Creatinine 0.89 0.60 - 1.10 mg/dL [facility] Glucose 141 70 - 199 mg/dL [facility] Comment: Interpretive Data Fasting glucose >/= 126 mg/dl is diagnostic for diabetes. Fasting is defined as no caloric intake for at least 8 hours. Fasting glucose between 100 mg/dl to 125 mg/dl is diagnostic of prediabetes. In a patient with classic symptoms of hyperglycemia or hyperglycemic crisis, a random glucose >/= 200 mg/dl is diagnostic for diabetes. In the absence of unequivocal hyperglycemia, results should be confirmed by repeat testing. The classification and Diagnosis of Diabetes Diabetes Care 2021; 46: S19-S40. Current interpretive data was last revised 2022. Calcium 9.1 8.5 - 10.3 mg/dL [facility] Bilirubin, total 0.6 0.1 - 1.2 mg/dL [facility] Protein, pl 7.3 6.5 - 8.5 g/dL [facility] Albumin 3.2(L) 3.5 - 5.0 g/dL [facility] Alk phos 66 40 - 130 Units/L [facility] ALT 8 7 - 45 Units/L [facility] AST 13 10 - 45 Units/L [facility] Blood 11/04/2024 9:38 PM [employer] 11/04/2024 9:48 PM [employer] Yogesh AVELAR LAB BLOOD ORDERABLES Final R [facility] Performing Organization Address City/[facility]/ZIP Co de Phone Number NIKOLAI [address] [facility] Department [place] [address] * Imaging Lumbar/Sacral Selective Nerve Root INJ (TFE) Bilateral ([id number]) (10/30/2024 9:36 AM [employer]) Narrative [email or web address] - 10/30/2024 11:36 AM [employer] The images from this study are not interpreted by Radiology. Please refer to the physician's procedure / OR operative note. us Valerie Rosado MD IMG PAIN MGMT PROCEDURES Final R esult Performing Organization Address City/[facility]/ZIP Co de Phone Number [email or web address] * XR Pelvis 1 or 2 Views (10/23/2024 12:48 PM [employer]) Anatomical Region Laterality Modality Body, Pelvis N/A Computed Radiogr aphy 10/23/2024 6:56 PM [employer] Narrative 10/23/2024 7:04 PM [employer] EXAM DESCRIPTION: XR SPINE LUMBAR 4 OR MORE VIEWS; XR SPINE THORACIC 3 VIEWS XR PELVIS 1 OR 2 VIEWS REASON FOR STUDY: accidental fall, R/O NEW COMPRESSION FRACTURE Back and pelvic pain. Fall 1 1/2 wks ago landed on buttock, Pain mid to low back down both legs x 2 mths FINDINGS: Five views lumbar spine, three views thoracic spine and a single-view pelvis submitted with comparison 09/25/2024, 11/04/2022. Thoracic spine: No acute fracture. There is mild levoscoliosis of the upper thoracic spine, dextroscoliosis of the midthoracic spine and levoscoliosis of the inferior thoracic spine. There is moderate to severe multilevel thoracic degenerative disc disease. Lumbar spine: There is moderate rotary dextroscoliosis of the lumbar spine. Moderate to severe diffuse lumbar degenerative disc disease is present with multilevel lumbar facet osteoarthritis and grade 1 anterolisthesis of L4 on L5. Arterial atherosclerosis and surgical clips are present. Pelvis: No acute fracture. The femoral heads are well seated. There is mild bilateral hip osteoarthritis and chondrocalcinosis. IMPRESSION: No acute fracture. 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 Moderate rotary dextroscoliosis of the lumbar spine with moderate to severe diffuse lumbar degenerative disc disease and multilevel lumbar facet osteoarthritis. Mild bilateral hip osteoarthritis. THIS IS AN ELECTRONICALLY VERIFIED FINAL REPORT 10/23/2024 7:04 PM - Electronically signed by Rod Allan M.D. T: Report ID: [id number] Reading Location: [address] Note Rod Alaln MD - 10/23/2024 EXAM DESCRIPTION: XR SPINE LUMBAR 4 OR MORE VIEWS; XR SPINE THORACIC 3 VIEWS XR PELVIS 1 OR 2 VIEWS REASON FOR STUDY: accidental fall, R/O NEW COMPRESSION FRACTURE Back and pelvic pain. Fall 1 1/2 wks ago landed on buttock, Pain mid to low back down both legsx 2 mths FINDINGS: Five views lumbar spine, three views thoracic spine and a single-view pelvis submitted with comparison 09/25/2024, 11/04/2022. Thoracic spine: No acute fracture. There is mild levoscoliosis of the upper thoracicspine, dextroscoliosis of the midthoracic spine and levoscoliosis of the inferior thoracic spine. There is moderate to severe multilevel thoracicdegenerative disc disease. Lumbar spine: There is moderate rotary dextroscoliosis of the lumbar spine. Moderate to severe diffuse lumbar degenerative disc disease is present with multilevel lumbar facet osteoarthritis and grade 1 anterolisthesis of L4 on L5.Arterial atherosclerosis and surgical clips are present. Pelvis: No acute fracture. The femoral heads are well seated. There is mild bilateral hip osteoarthritis and chondrocalcinosis. IMPRESSION: No acute fracture. 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 Moderate rotary dextroscoliosis of the lumbar spine with moderate tosevere diffuse lumbar degenerative disc disease and multilevel lumbar facet osteoarthritis. Mild bilateral hip osteoarthritis. THIS IS AN ELECTRONICALLY VERIFIED FINAL REPORT 10/23/2024 7:04 PM - Electronically signed by Rod Allan M.D. T: Report ID: [id number] Reading Location: [place] [address] Valerie Rosado MD IMG XR PROCEDURES Final Result * X-ray lumbar spine complete 4+ views (10/23/2024 12:48 PM [employer]) Anatomical Region Laterality Modality Spine N/A Computed Radiogr aphy 10/23/2024 6:56 PM [employer] Narrative 10/23/2024 7:04 PM [employer] EXAM DESCRIPTION: XR SPINE LUMBAR 4 OR MORE VIEWS; XR SPINE THORACIC 3 VIEWS XR PELVIS 1 OR 2 VIEWS REASON FOR STUDY: accidental fall, R/O NEW COMPRESSION FRACTURE Back and pelvic pain. Fall 1 1/2 wks ago landed on buttock, Pain mid to low back down both legs x 2 mths FINDINGS: Five views lumbar spine, three views thoracic spine and a single-view pelvis submitted with comparison 09/25/2024, 11/04/2022. Thoracic spine: No acute fracture. There is mild levoscoliosis of the upper thoracic spine, dextroscoliosis of the midthoracic spine and levoscoliosis of the inferior thoracic spine. There is moderate to severe multilevel thoracic degenerative disc disease. Lumbar spine: There is moderate rotary dextroscoliosis of the lumbar spine. Moderate to severe diffuse lumbar degenerative disc disease is present with multilevel lumbar facet osteoarthritis and grade 1 anterolisthesis of L4 on L5. Arterial atherosclerosis and surgical clips are present. Pelvis: No acute fracture. The femoral heads are well seated. There is mild bilateral hip osteoarthritis and chondrocalcinosis. IMPRESSION: No acute fracture. 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 Moderate rotary dextroscoliosis of the lumbar spine with moderate to severe diffuse lumbar degenerative disc disease and multilevel lumbar facet osteoarthritis. Mild bilateral hip osteoarthritis. THIS IS AN ELECTRONICALLY VERIFIED FINAL REPORT 10/23/2024 7:04 PM - Electronically signed by Rod Allan M.D. T: Report ID: [id number] Reading Location: [id number] Procedure Note Rod Allan MD - 10/23/2024 EXAM DESCRIPTION: XR SPINE LUMBAR 4 OR MORE VIEWS; XR SPINE THORACIC 3 VIEWS XR PELVIS 1 OR 2 VIEWS REASON FOR STUDY: accidental fall, R/O NEW COMPRESSION FRACTURE Back and pelvic pain. Fall 1 1/2 wks ago landed on buttock, Pain mid to low back down both legsx 2 mths FINDINGS: Five views lumbar spine, three views thoracic spine and a single-view pelvis submitted with comparison 09/25/2024, 11/04/2022. Thoracic spine: No acute fracture. There is mild levoscoliosis of the upper thoracicspine, dextroscoliosis of the midthoracic spine and levoscoliosis of the inferior thoracic spine. There is moderate to severe multilevel thoracicdegenerative disc disease. Lumbar spine: There is moderate rotary dextroscoliosis of the lumbar spine. Moderate to severe diffuse lumbar degenerative disc disease is present with multilevel lumbar facet osteoarthritis and grade 1 anterolisthesis of L4 on L5.Arterial atherosclerosis and surgical clips are present. Pelvis: No acute fracture. The femoral heads are well seated. There is mild bilateral hip osteoarthritis and chondrocalcinosis. IMPRESSION: No acute fracture. 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 Moderate rotary dextroscoliosis of the lumbar spine with moderate tosevere diffuse lumbar degenerative disc disease and multilevel lumbar facet osteoarthritis. Mild bilateral hip osteoarthritis. THIS IS AN ELECTRONICALLY VERIFIED FINAL REPORT 10/23/2024 7:04 PM - Electronically signed by Rod OLIVIA T: Report ID: [id number] Reading Location: [id number] Valerie Rosado MD IMG XR PROCEDURES Final Result * X-ray thoracic spine 3 views (10/23/2024 12:48 PM [employer]) Anatomical Region Laterality Modality Spine N/A Computed Radiogr aphy 10/23/2024 6:56 PM [employer] Narrative 10/23/2024 7:04 PM [employer] EXAM DESCRIPTION: XR SPINE LUMBAR 4 OR MORE VIEWS; XR SPINE THORACIC 3 VIEWS XR PELVIS 1 OR 2 VIEWS REASON FOR STUDY: accidental fall, R/O NEW COMPRESSION FRACTURE Back and pelvic pain. Fall 1 1/2 wks ago landed on buttock, Pain mid to low back down both legs x 2 mths FINDINGS: Five views lumbar spine, three views thoracic spine and a single-view pelvis submitted with comparison 09/25/2024, 11/04/2022. Thoracic spine: No acute fracture. There is mild levoscoliosis of the upper thoracic spine, dextroscoliosis of the midthoracic spine and levoscoliosis of the inferior thoracic spine. There is moderate to severe multilevel thoracic degenerative disc disease. Lumbar spine: There is moderate rotary dextroscoliosis of the lumbar spine. Moderate to severe diffuse lumbar degenerative disc disease is present with multilevel lumbar facet osteoarthritis and grade 1 anterolisthesis of L4 on L5. Arterial atherosclerosis and surgical clips are present. Pelvis: No acute fracture. The femoral heads are well seated. There is mild bilateral hip osteoarthritis and chondrocalcinosis. IMPRESSION: No acute fracture. 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 Moderate rotary dextroscoliosis of the lumbar spine with moderate to severe diffuse lumbar degenerative disc disease and multilevel lumbar facet osteoarthritis. Mild bilateral hip osteoarthritis. THIS IS AN ELECTRONICALLY VERIFIED FINAL REPORT 10/23/2024 7:04 PM - Electronically signed by Rod Allan M.D. T: Report ID: [id number] Reading Location: [id number] Procedure Note Rod Allan MD - 10/23/2024 EXAM DESCRIPTION: XR SPINE LUMBAR 4 OR MORE VIEWS; XR SPINE THORACIC 3 VIEWS XR PELVIS 1 OR 2 VIEWS REASON FOR STUDY: accidental fall, R/O NEW COMPRESSION FRACTURE Back and pelvic pain. Fall 1 1/2 wks ago landed on buttock, Pain mid to low back down both legsx 2 mths FINDINGS: Five views lumbar spine, three views thoracic spine and a single-view pelvis submitted with comparison 09/25/2024, 11/04/2022. Thoracic spine: No acute fracture. There is mild levoscoliosis of the upper thoracicspine, dextroscoliosis of the midthoracic spine and levoscoliosis of the inferior thoracic spine. There is moderate to severe multilevel thoracicdegenerative disc disease. Lumbar spine: There is moderate rotary dextroscoliosis of the lumbar spine. Moderate to severe diffuse lumbar degenerative disc disease is present with multilevel lumbar facet osteoarthritis and grade 1 anterolisthesis of L4 on L5.Arterial atherosclerosis and surgical clips are present. Pelvis: No acute fracture. The femoral heads are well seated. There is mild bilateral hip osteoarthritis and chondrocalcinosis. IMPRESSION: No acute fracture. 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 Moderate rotary dextroscoliosis of the lumbar spine with moderate tosevere diffuse lumbar degenerative disc disease and multilevel lumbar facet osteoarthritis. Mild bilateral hip osteoarthritis. THIS IS AN ELECTRONICALLY VERIFIED FINAL REPORT 10/23/2024 7:04 PM - Electronically signed by Rod Allan M.D. T: Report ID: [id number] Reading Location: [place] [address] Valerie Rosado MD IMG XR PROCEDURES Final Result * XR Tibia Fibula Right 2 Views (09/30/2024 1:35 PM [employer]) Anatomical Region Laterality Modality Lower Extremities, Lower Leg Right Com puted Radiography 09/30/2024 3:15 PM [employer] Narrative 09/30/2024 3:26 PM [employer] EXAM DESCRIPTION: XR TIBIA FIBULA RIGHT2 VIEWS REASON FOR STUDY: Pain. Patient states she is having pain distal tib/fib, anterior surface. Knee was replaced approximately 20 years ago TECHNIQUE: There are 2 radiographic view(s) of the right tibia and fibula. . COMPARISON: No prior. FINDINGS: Patient demonstrates a right knee arthroplasty. No evidence of complication where visualized. Tibia and fibula demonstrate normal mineralization with no fracture or dislocation. Mild soft tissue swelling is seen about the ankle. Heterotopic ossification is seen distal to the medial malleolus. Prominent plantar calcaneal spur with adjacent heterotopic ossification. IMPRESSION: No acute fracture. Mild soft tissue swelling is seen about the ankle. Right knee arthroplasty with no radiographic evidence of complication where visualized. THIS IS AN ELECTRONICALLY VERIFIED FINAL REPORT 09/30/2024 3:26 PM - Electronically signed by Rod AZUL T: Report ID: [id number] Reading Location: [id number] Procedure Note Rod Devlin MD - 09/30/2024 EXAM DESCRIPTION: XR TIBIA FIBULA RIGHT2 VIEWS REASON FOR STUDY: Pain. Patient states she is having pain distal tib/fib, anterior surface. Kneewas replaced approximately 20 years ago TECHNIQUE: There are 2 radiographic view(s) of the right tibia andfibula. . COMPARISON: No prior. FINDINGS: Patient demonstrates a right knee arthroplasty. No evidence of complication where visualized. Tibia and fibula demonstrate normal mineralization with no fracture or dislocation. Mild soft tissue swellingis seen about the ankle. Heterotopic ossification is seen distal to themedial malleolus. Prominent plantar calcaneal spur with adjacent heterotopic ossification. IMPRESSION: No acute fracture. Mild soft tissue swelling is seen about the ankle. Right knee arthroplasty with no radiographic evidence of complicationwhere visualized. THIS IS AN ELECTRONICALLY VERIFIED FINAL REPORT 09/30/2024 3:26 PM - Electronically signed by Rod AZUL T: Report ID: [id number] Reading Location: [id number] us Carlos Leggett MD IMG XR PROCEDURES Final Result * eGFR (09/30/2024 7:48 AM [employer]) eGFR 86 >=60 mL/min/1. 73 m2 Comment: Interpretive Data Reference Interval Normal >/= 90 mL/min/1.73m2 Mildly decreased* 60 - 89 mL/min/1.73m2 Mildly to moderately decreased 45 - 59 mL/min/1.73m2 Moderately to severely decreased 30 - 44 mL/min/1.73m2 Severely decreased 15 - 29 mL/min/1.73m2 Kidney Failure < 15 mL/min/1.73m2 *Relative to young adult level Estimated glomerular filtration rate is determined by the 2020 CKD-EPI equation recommended by the National Kidney Foundation (A Unifying Approach to GFR Estimation: Recommendations of the NKF-ASK Task Force on Reassessing the Inclusion of Race in Diagnosing Kidney Disease, JASN 2020). The CKD-EPI equation should not be used for patients with unstable renal function and has not been validated in children and those over 70. Current interpretive data was last reviewed 2021. Blood 09/30/2024 7:48 AM [employer] 09/30/2024 8:30 AM [employer] Carlos Leggett MD LAB BLOOD ORDERABLES Fi nal Result [facility] [address] [facility] Department [place] [address] * Basic metabolic panel (09/30/2024 7:48 AM [employer]) Sodium 136 135 - 145 mmol/L Potassium, pl 3.8 3.3 - 4.9 mmol/L [facility] Chloride 99 97 - 110 mmol/L [facility] CO2 24 22 - 32 mmol/L [facility] Anion gap 13 2 - 15 mmol/L [facility] BUN 23 6 - 25 mg/dL [facility] Creatinine 0.73 0.60 - 1.10 mg/dL [facility] Glucose 133 70 - 199 mg/dL [facility] Comment: Interpretive Data Fasting glucose >/= 126 mg/dl is diagnostic for diabetes. Fasting is defined as no caloric intake for at least 8 hours. Fasting glucose between 100 mg/dl to 125 mg/dl is diagnostic of prediabetes. In a patient with classic symptoms of hyperglycemia or hyperglycemic crisis, a random glucose >/= 200 mg/dl is diagnostic for diabetes. In the absence of unequivocal hyperglycemia, results should be confirmed by repeat testing. The classification and Diagnosis of Diabetes Diabetes Care 202; 46: S19-S40. Current interpretive data was last revised 2022. Calcium 9.1 8.5 - 10.3 mg/dL [facility] Blood 09/30/2024 7:48 AM [employer] 09/30/2024 8:30 AM [employer] Carlos Leggett MD LAB BLOOD ORDERABLES Fi nal Result [facility] [address] [facility] Department [place] [address] * FL Fluoroscopy < 1 Hour (09/29/2024 12:45 PM [employer]) Narrative [email or web address] - 09/29/2024 2:07 PM [employer] The images from this study are not interpreted by Radiology. Please refer to the physician's procedure / OR operative note. Valerie Rosado MD IMG FLUOROSCOPY PROCEDURES Final Result Performing Organization Address [facility] Co de Phone Number [email or web address] * US VEIN DUPLEX LOWER EXTREMITY RIGHT LIMITED, UNILATERAL (09/28/2024 11:34 AM [employer]) Anatomical Region Laterality Modality Vascular Right Ultrasound 09/28/2024 Narrative 09/30/2024 7:13 AM [employer] Job ID: [id number] [employer] Document ID: [id number] Dictated date/time: [id number] LOWER EXTREMITY VENOUS DUPLEX REASON FOR EXAM Leg pain. FINDINGS Veins throughout the right lower extremity show spontaneous and phasic flow with normal augmentation. All veins are competent and compressible. Left common femoral vein from flow and compressibility as well. OVERALL IMPRESSION Negative for DVT right lower extremity and left common femoral vein. Job ID/Internal Job ID: [id number] Gabino Joaquin MD IMG US PROCEDURES Final Re sult * eGFR (09/26/2024 4:44 AM [employer]) [facility] eGFR 78 >=60 mL/min/1. 73 m2 Comment: Interpretive Data Reference Interval Normal >/= 90 mL/min/1.73m2 Mildly decreased* 60 - 89 mL/min/1.73m2 Mildly to moderately decreased 45 - 59 mL/min/1.73m2 Moderately to severely decreased 30 - 44 mL/min/1.73m2 Severely decreased 15 - 29 mL/min/1.73m2 Kidney Failure < 15 mL/min/1.73m2 *Relative to young adult level Estimated glomerular filtration rate is determined by the 2020 CKD-EPI equation recommended by the National Kidney Foundation (A Unifying Approach to GFR Estimation: Recommendations of the NKF-ASK Task Force on Reassessing the Inclusion of Race in Diagnosing Kidney Disease, JASN 2020). The CKD-EPI equation should not be used for patients with unstable renal function and has not been validated in children and those over 70. Current interpretive data was last reviewed 2021. Blood 09/26/2024 4:44 AM [employer] 09/26/2024 4:50 AM [employer] Perry Hammond MD LAB BLOOD ORDERABLES Fin al Result [facility] [address] [facility] Department [place] [address] * (ABNORMAL) Basic metabolic panel (09/26/2024 4:44 AM [employer]) [facility] Sodium 133(L) 135 - 145 mmol/L Potassium, pl 4.1 3.3 - 4.9 mmol/L [facility] Comment:Hemolyzed; Potassium value may be falsely elevated by as much as 1.0 mmol/L. Suggest redraw and reanalysis. Chloride 101 97 - 110 mmol/L [facility] CO2 21(L) 22 - 32 mmol/L [facility] Anion gap 11 2 - 15 mmol/L [facility] BUN 23 6 - 25 mg/dL [facility] Creatinine 0.79 0.60 - 1.10 mg/dL [facility] Glucose 124 70 - 199 mg/dL [facility] Comment: Interpretive Data Fasting glucose >/= 126 mg/dl is diagnostic for diabetes. Fasting is defined as no caloric intake for at least 8 hours. Fasting glucose between 100 mg/dl to 125 mg/dl is diagnostic of prediabetes. In a patient with classic symptoms of hyperglycemia or hyperglycemic crisis, a random glucose >/= 200 mg/dl is diagnostic for diabetes. In the absence of unequivocal hyperglycemia, results should be confirmed by repeat testing. The classification and Diagnosis of Diabetes Diabetes Care 202; 46: S19-S40. Current interpretive data was last revised 2022. Calcium 9.2 8.5 - 10.3 mg/dL [facility] Blood 09/26/2024 4:44 AM [employer] 09/26/2024 4:50 AM [employer] Perry Hammond MD LAB BLOOD ORDERABLES Fin al Result [facility] [address] [facility] Department [place] [address] * eGFR (09/25/2024 3:50 PM [employer]) eGFR >90 >=60 mL/min/1. 73 m2 Comment: Interpretive Data Reference Interval Normal >/= 90 mL/min/1.73m2 Mildly decreased* 60 - 89 mL/min/1.73m2 Mildly to moderately decreased 45 - 59 mL/min/1.73m2 Moderately to severely decreased 30 - 44 mL/min/1.73m2 Severely decreased 15 - 29 mL/min/1.73m2 Kidney Failure < 15 mL/min/1.73m2 *Relative to young adult level Estimated glomerular filtration rate is determined by the 2020 CKD-EPI equation recommended by the National Kidney Foundation (A Unifying Approach to GFR Estimation: Recommendations of the NKF-ASK Task Force on Reassessing the Inclusion of Race in Diagnosing Kidney Disease, JASN 2020). The CKD-EPI equation should not be used for patients with unstable renal function and has not been validated in children and those over 70. Current interpretive data was last reviewed 2021. Blood 09/25/2024 3:50 PM [employer] 09/25/2024 4:02 PM [employer] Perry Hammond MD LAB BLOOD ORDERABLES Fin al Result Performing Organization Address City/[facility] Co de Phone Number [address] [place] [address] * Magnesium (09/25/2024 3:50 PM [employer]) Pathologist [facility] Magnesium 1.7 1.4 - 2.5 mg/dL Blood 09/25/2024 3:5 0 PM [employer] 09/25/2024 4:02 PM [employer] Perry Hammond MD LAB BLOOD ORDERABLES Fin al Result Performing Organization Address [facility] de Phone Number [address] [address] * Basic metabolic panel (09/25/2024 3:50 PM [employer]) Pathologist [facility] Sodium 138 135 - 145 mmol/L Potassium, pl 3.7 3.3 - 4.9 mmol/L [facility] Comment:Delta - Results Revi ewed Chloride 100 97 - 110 mmol/L [facility] CO2 25 22 - 32 mmol/L [facility] Anion gap 13 2 - 15 mmol/L [facility] BUN 24 6 - 25 mg/dL [facility] Creatinine 0.67 0.60 - 1.10 mg/dL [facility] Glucose 136 70 - 199 mg/dL [facility] Comment: Interpretive Data Fasting glucose >/= 126 mg/dl is diagnostic for diabetes. Fasting is defined as no caloric intake for at least 8 hours. Fasting glucose between 100 mg/dl to 125 mg/dl is diagnostic of prediabetes. In a patient with classic symptoms of hyperglycemia or hyperglycemic crisis, a random glucose >/= 200 mg/dl is diagnostic for diabetes. In the absence of unequivocal hyperglycemia, results should be confirmed by repeat testing. The classification and Diagnosis of Diabetes Diabetes Care 2021; 46: S19-S40. Current interpretive data was last revised 2022. Calcium 10.1 8.5 - 10.3 mg/dL [facility] Blood 09/25/2024 3:50 PM [employer] 09/25/2024 4:02 PM [employer] Perry Hammond MD LAB BLOOD ORDERABLES Fin al Result Performing Organization Address [facility] Co de Phone Number [facility] [address] [place] [phone] * (ABNORMAL) Urinalysis reflex to microscopic and culture Urine (09/25/2024 5:49 AM [employer]) Color, ur Yellow Yellow Clarity, ur Clear Clear [facility] Specific gravity, ur 1.029 1.003 - 1.030 [facility] pH, urine 5.5 [facility] Comment: Interpretive Data U rine pH is affected by diet, medications, systemic acid-base disturbances, and renal tubular function. pH may affect urinary stone formation. For example, urine pH below 6.0 may help reduce the tendency for calcium phosphate stones and pH greater than 6.0 may reduce the tendency for uric acid stone formation. Source: [facility] Current Interpretive Data was last revised on 2017 Protein, ur ql 1+(A) Negative [facility] Glucose, ur ql Negative Negative [facility] Ketones, ur Trace Negative [facility] Bilirubin, ur Negative Negative [facility] Blood, ur Negative Negative [facility] Urobilinogen, ur <2.0 <2.0 mg/dL [facility] Nitrite, ur Negative Negative [facility] Leukocyte esterase, ur 1+(A) Negative [facility] UA reflex comment Reflex to microscopic UA will be performed. [facility] Urine 09/25/2024 5:49 AM [employer] 09/25/2024 5:52 AM [employer] Perry Hammond MD LAB MICROBIOLOGY - GENER AL ORDERABLES Final Result Performing Organization Address City/[facility]/ZIP Co de Phone Number [facility] [address] [address] * (ABNORMAL) Urinalysis, microscopic only (09/25/2024 5:49 AM [employer]) WBC, ur 0-5 0 - 5 /HPF RBC, ur 0-2 0 - 2 /HPF [facility] Epithelial cells, squamous, ur 1-5 0 - 5 /HPF [facility] Mucous, ur Present(A) [facility] Hyaline casts, ur 6-10 0 - 10 /LPF [facility] Culture Reflex Comment Reflex conditions for urine culture (WBC >10) not met. [facility] Urine 09/25/2024 5:49 AM [employer] 09/25/2024 5:52 AM [employer] us Perry Hammond MD LAB URINE ORDERABLES Fin al Result [facility] [address] [facility] Department [place] [address] * CT Lumbar Spine WO Contrast (09/25/2024 4:05 AM [employer]) Anatomical Region Laterality Modality Spine N/A Computed Tomogra phy 09/25/2024 4:09 AM [employer] Narrative 09/25/2024 4:14 AM [employer] EXAM DESCRIPTION: CT LUMBAR SPINE WO CONTRAST REASON FOR STUDY: low back pain BIBA from home with c/o shooting pain through her lower back and down her right leg x3 weeks. She has a history of sciatica. TECHNIQUE: Axial images acquired through the lumbar spine without intravenous contrast. Reconstructed coronal and sagittal MPR images reviewed. All images stored on PACS. Automated exposure control was used as a dose optimization technique for this examination. COMPARISON: 09/24/2019 FINDINGS: SEGMENTATION: No transitional anatomy. The lowest well-developed disc space is labeled L5-S1. ALIGNMENT: Dextroscoliosis centered at L3 is noted. AP alignment is maintained. VERTEBRAE: No fracture. Vertebral heights well-maintained. The bones are diffusely osteopenic. DISC HEIGHT: Diffuse intervertebral disc narrowing is evident throughout the lumbar spine. HARDWARE: None in the spine. INDIVIDUAL DISC LEVELS: Canal contents are not well seen by CT. L1-2: Mild circumferential bulging is seen. The canal is partially narrowed without a tight appearing stenosis. The neural foraminal openings are crowded by disc material and spurring. L2-3: [id number] circumferential bulging is seen. The canal appears to be partially narrowed. The neural foraminal opening on the left is markedly crowded by disc material and spurring. Lesser crowding is seen in the right L3-4: Mild circumferential bulging is seen. The canal appears to be patent. Facet arthropathy is seen. Tight neural foraminal stenosis is seen in the left L4-5: Moderate to broad circumferential bulging is seen along with bulky facet hypertrophy. The canal appears to be tightly narrowed. The neural foraminal openings are markedly crowded by disc material and spurring particularly on the left L5-S1: Moderate circumferential bulging is seen. The canal appears to be partially narrowed. The neural foraminal openings are markedly narrowed by disc material and spurring. VISUALIZED RIBS: No fractures. SOFT TISSUES: No significant or acute finding in adjacent soft tissues. OTHER: No other significant finding. IMPRESSION: Dextroscoliosis. Diffuse degenerative disc disease. No acute fracture or malalignment. Multilevel neural foraminal narrowing particularly on the left at L2-3, L3-4, and L4-5 and bilaterally at L5-S1. The canal contents are not well seen by CT. There appears to be tight appearing stenosis at the L4-5 level. THIS IS AN ELECTRONICALLY VERIFIED FINAL REPORT 09/25/2024 4:14 AM - Electronically signed by Chato Hart M.D. T: Report ID: [id number] Reading Location: [place] [id number] Procedure Note Chato Hart MD - 09/25/2024 EXAM DESCRIPTION: CT LUMBAR SPINE WO CONTRAST REASON FOR STUDY: low back pain BIBA from home with c/o shooting pain through her lower back and down her right leg x3 weeks. She has a history of sciatica. TECHNIQUE: Axial images acquired through the lumbar spine withoutintravenous contrast. Reconstructed coronal and sagittal MPR images reviewed. Allimages stored on PACS. Automated exposure control was used as a dose optimization technique forthis examination. COMPARISON: 09/24/2019 FINDINGS: SEGMENTATION: No transitional anatomy. The lowestwell-developed disc space is labeled L5-S1. ALIGNMENT: Dextroscoliosis centered at L3 is noted. AP alignment is maintained. VERTEBRAE: No fracture. Vertebral heights well-maintained. The bonesare diffusely osteopenic. DISC HEIGHT: Diffuse intervertebral disc narrowing is evident throughoutthe lumbar spine. HARDWARE: None in the spine. INDIVIDUAL DISC LEVELS: Canal contents are not well seen by CT. L1-2: Mild circumferential bulging is seen. The canal is partiallynarrowed without a tight appearing stenosis. The neural foraminal openings arecrowded by disc material and spurring. L2-3: Quci-is-gtugasoq circumferential bulging is seen. The canalappears to be partially narrowed. The neural foraminal opening on the left is markedly crowded by disc material and spurring. Lesser crowding is seenin the right L3-4: Mild circumferential bulging is seen. The canal appears to bepatent. Facet arthropathy is seen. Tight neural foraminal stenosis is seen inthe left L4-5: Moderate to broad circumferential bulging is seen along with bulky facet hypertrophy. The canal appears to be tightly narrowed. The neural foraminal openings are markedly crowded by disc material and spurring particularly on the left L5-S1: Moderate circumferential bulging is seen. The canal appears to be partially narrowed. The neural foraminal openings are markedly narrowedby disc material and spurring. VISUALIZED RIBS: No fractures. SOFT TISSUES: No significant or acute finding in adjacent soft tissues. OTHER: No other significant finding. IMPRESSION: Dextroscoliosis. Diffuse degenerative disc disease. No acute fracture or malalignment. Multilevel neural foraminal narrowing particularly on the left at L2-3,L3-4, and L4-5 and bilaterally at L5-S1. The canal contents are not well seen by CT. There appears to be tight appearing stenosis at the L4-5 level. THIS IS AN ELECTRONICALLY VERIFIED FINAL REPORT 09/25/2024 4:14 AM - Electronically signed by Chato Hart M.D. T: Report ID: [id number] Reading Location: [id number] us Ana AVEL[facility] CT PROCEDURES Final Result * (ABNORMAL) Potassium (09/25/2024 3:37 AM [employer]IL[employer]) [facility] Potassium, pl 2.8(L) 3.3 - 4.9 mmol/L Blood 09/25/2024 3:37 AM [employer] 09/25/2024 3:43 AM [employer] Ana AVELAR LAB BLOOD ORDERABLES Final Resul t Performing Organization Address [facility] de Phone Number [address] [place] [address] * Phosphorus (09/25/2024 3:37 AM [employer] PILOT) [facility] Phosphorus, pl 4.0 2.3 - 4.5 mg/dL Blood 09/25/2024 3:37 AM [employer] 09/25/2024 3:43 AM [employer] Ana AVELAR LAB BLOOD ORDERABLES Final Resul t Performing Organization Address [facility] de Phone Number [address] [place] [address] * (ABNORMAL) Magnesium (09/25/2024 3:37 AM [employer] PILOT) [facility] Magnesium 1.1(L) 1.4 - 2.5 mg/dL Blood 09/25/2024 3:37 AM [employer] P[employer] 09/25/2024 3:43 AM [employer] PIL[employer] Ana AVELAR LAB BLOOD ORDERABLES Final Resul t Performing Organization Address [facility] de Phone Number [address] [place] [address] * eGFR (09/25/2024 1:59 AM [employer] PILOT) [facility] eGFR 74 >=60 mL/min/1. 73 m2 Comment: Interpretive Data Reference Interval Normal >/= 90 mL/min/1.73m2 Mildly decreased* 60 - 89 mL/min/1.73m2 Mildly to moderately decreased 45 - 59 mL/min/1.73m2 Moderately to severely decreased 30 - 44 mL/min/1.73m2 Severely decreased 15 - 29 mL/min/1.73m2 Kidney Failure < 15 mL/min/1.73m2 *Relative to young adult level Estimated glomerular filtration rate is determined by the 2020 CKD-EPI equation recommended by the National Kidney Foundation (A Unifying Approach to GFR Estimation: Recommendations of the NKF-ASK Task Force on Reassessing the Inclusion of Race in Diagnosing Kidney Disease, JASN 202). The CKD-EPI equation should not be used for patients with unstable renal function and has not been validated in children and those over 70. Current interpretive data was last reviewed 2021. Blood 09/25/2024 1:59 AM [employer] 09/25/2024 2:03 AM [employer] us Ana AVELAR LAB BLOOD ORDERABLES Final Resul t [facility] [address] [facility] Department [place] [address] * (ABNORMAL) Basic metabolic panel (09/25/2024 1:59 AM [employer] PIL[employer]) Sodium 137 135 - 145 mmol/L Potassium, pl 2.8(L) 3.3 - 4.9 mmol/L [facility] Comment:Hemolyzed; Potassium value may be falsely elevated by as much as 1.0 mmol/L. Suggest redraw and reanalysis. Chloride 97 97 - 110 mmol/L [facility] CO2 23 22 - 32 mmol/L [facility] Anion gap 17(H) 2 - 15 mmol/L [facility] BUN 26(H) 6 - 25 mg/dL [facility] Creatinine 0.83 0.60 - 1.10 mg/dL [facility] Glucose 139 70 - 199 mg/dL [facility] Comment: Interpretive Data Fasting glucose >/= 126 mg/dl is diagnostic for diabetes. Fasting is defined as no caloric intake for at least 8 hours. Fasting glucose between 100 mg/dl to 125 mg/dl is diagnostic of prediabetes. In a patient with classic symptoms of hyperglycemia or hyperglycemic crisis, a random glucose >/= 200 mg/dl is diagnostic for diabetes. In the absence of unequivocal hyperglycemia, results should be confirmed by repeat testing. The classification and Diagnosis of Diabetes Diabetes Care 2021; 46: S19-S40. Current interpretive data was last revised 2022. Calcium 10.6(H) 8.5 - 10.3 mg/dL NIKOL[facility] SAUER Blood 09/25/2024 1:59 AM [employer] 09/25/2024 2:03 AM [employer] PIL[employer] us Ana AVELAR LAB BLOOD ORDERABLES Final Resul t N[facility]AI [address] [facility] Department [place] [address] * XR Spine Lumbar 2 or 3 Views (09/24/2024 8:56 PM [employer] PILOT) Anatomical Region Laterality Modality Spine N/A Computed Radiogr aphy 09/24/2024 9:04 PM [employer] Narrative 09/24/2024 9:07 PM [employer] P[employer] EXAM DESCRIPTION: XR SPINE LUMBAR 2 OR 3 VIEWS REASON FOR STUDY: low back pain BIBA from home with c/o shooting pain through her lower back and down her right leg x3 weeks. She has a history of sciatica. She took 100mg tramadol and 600mg tylenol around 1500 for her pain which helped. She has been non-compliant with her blood pressure medications since she's not been feeling well. EMS reports initial blood pressure of 191/117 with repeat reading of 140/90 en route. Pt is also concerned for UTI and dehydration. She reports burning with urination and dark urine x3 days. TECHNIQUE: 3 radiographic view(s) of the lumbar spine. COMPARISON: 03/31/2024 FINDINGS: Significant dextroscoliosis measuring approximately 29 degrees. Straightening of the lumbar lordosis is redemonstrated. There is wedging along the concavities which is unchanged. No definite acute compression fracture. Severe degenerative changes along the concavities. Cholecystectomy clips within right upper quadrant. IMPRESSION: 1. Significant dextroscoliosis with severe lumbar degenerative disc disease along the concavities. No definite acute spinal abnormality is seen. Follow-up MRI may be performed for further evaluation if this patient is having radicular back pain. THIS IS AN ELECTRONICALLY VERIFIED FINAL REPORT 09/24/2024 9:07 PM - Electronically signed by Jose Navarro M.D. AG T: Report ID: [id number] Reading Location: [id number] Procedure Note Jose Navarro MD - 09/24/2024 EXAM DESCRIPTION: XR SPINE LUMBAR 2 OR 3 VIEWS REASON FOR STUDY: low back pain BIBA from home with c/o shooting pain through her lower back and down her right leg x3 weeks. She has a history of sciatica. She took 100mg tramadoland 600mg tylenol around 1500 for her pain which helped. She has been non-compliant with her blood pressure medications since she's not been feeling well. EMS reports initial blood pressure of 191/117 with repeat reading of 140/90 en route. Pt is also concerned for UTI anddehydration. She reports burning with urination and dark urine x3 days. TECHNIQUE: 3 radiographic view(s) of the lumbar spine. COMPARISON: 03/31/2024 FINDINGS: Significant dextroscoliosis measuring approximately 29 degrees. Straightening of the lumbar lordosis is redemonstrated. There is wedging along the concavities which is unchanged. No definite acute compression fracture. Severe degenerative changes along the concavities. Cholecystectomy clips within right upper quadrant. IMPRESSION: 1. Significant dextroscoliosis with severe lumbar degenerative discdisease along the concavities. No definite acute spinal abnormality is seen. Follow-up MRI may be performed for further evaluation if this patient is having radicular back pain. THIS IS AN ELECTRONICALLY VERIFIED FINAL REPORT 09/24/2024 9:07 PM - Electronically signed by Jose Navarro M.D. AG T: Report ID: [id number] Reading Location: [id number] Ana AVELAR IM XR PROCEDURES Final Result * eGFR (09/24/2024 6:59 PM [employer] PILOT) eGFR >90 >=60 mL/min/1. 73 m2 Comment: Interpretive Data Reference Interval Normal >/= 90 mL/min/1.73m2 Mildly decreased* 60 - 89 mL/min/1.73m2 Mildly to moderately decreased 45 - 59 mL/min/1.73m2 Moderately to severely decreased 30 - 44 mL/min/1.73m2 Severely decreased 15 - 29 mL/min/1.73m2 Kidney Failure < 15 mL/min/1.73m2 *Relative to young adult level Estimated glomerular filtration rate is determined by the 2020 CKD-EPI equation recommended by the National Kidney Foundation (A Unifying Approach to GFR Estimation: Recommendations of the NKF-ASK Task Force on Reassessing the Inclusion of Race in Diagnosing Kidney Disease, JASN 2020). The CKD-EPI equation should not be used for patients with unstable renal function and has not been validated in children and those over 70. Current interpretive data was last reviewed 2021. Blood 09/24/2024 6:59 PM [employer] 09/24/2024 7:01 PM [employer] Perry Hammond MD LAB BLOOD ORDERABLES Fin al Result [facility] [address] [facility] Department [place] [address] * Differential, auto (09/24/2024 6:59 PM [employer] PILOT) Pathologist [facility] Neutrophil abs 4.2 1.5 - 6.5 K/cumm Imm gran abs 0.0 0.0 - 0.1 K/cumm [facility] Lymphocyte abs 2.9 0.8 - 3.3 K/cumm [facility] Monocyte abs 0.8 0.2 - 0.8 K/cumm [facility] Eosinophil abs 0.2 0.0 - 0.5 K/cumm [facility] Basophil abs 0.0 0.0 - 0.1 K/cumm [facility] Neutrophil pct 51.4 % [facility] Comment: Interpretive Data Percent cell count reference ranges are not reported, since discordance with absolute values may lead to misinterpretation of CBC data. Current Interpretive Data was last revised on 2017. Imm gran pct 0.2 % [facility] Comment: Interpretive Data Percent cell count reference ranges are not reported, since discordance with absolute values may lead to misinterpretation of CBC data. Current Interpretive Data was last revised on 2017. Lymphocyte pct 35.5 % [facility] Comment: Interpretive Data Percent cell count reference ranges are not reported, since discordance with absolute values may lead to misinterpretation of CBC data. Current Interpretive Data was last revised on 2017. Monocyte pct 10.2 % [facility] Comment: Interpretive Data Percent cell count reference ranges are not reported, since discordance with absolute values may lead to misinterpretation of CBC data. Current Interpretive Data was last revised on 2017. Eosinophil pct 2.3 % [facility] Comment: Interpretive Data Percent cell count reference ranges are not reported, since discordance with absolute values may lead to misinterpretation of CBC data. Current Interpretive Data was last revised on 2017. Basophil pct 0.4 % [facility] Comment: Interpretive Data Percent cell count reference ranges are not reported, since discordance with absolute values may lead to misinterpretation of CBC data. Current Interpretive Data was last revised on 2017. Blood 09/24/2024 6:59 PM [employer] P[employer] 09/24/2024 7:01 PM [employer] P[employer] Perry Hammond MD LAB BLOOD ORDERABLES Fin al Result [facility] [address] [facility] Department [place] [address] * (ABNORMAL) CBC with auto differential (09/24/2024 6:59 PM [employer]ER[employer] AIR[employer] PILOT) Pathologist [facility] WBC 8.2 3.8 - 9.9 K/cumm Hgb 15.3 11.9 - 15.5 g/dL [facility] Hct 46.7(H) 35.6 - 45.5 % [facility] Plt 186 150 - 400 K/cumm [facility] MPV 10.5 9.1 - 12.3 fL [facility] RBC 4.65 3.90 - 5.20 M/cumm [facility] MCV 100.4(H) 81.3 - 96.4 fL [facility] MCH 32.9 27.1 - 33.3 pg [facility] MCHC 32.8 32.3 - 35.7 g/dL [facility] RDW CV 13.7 11.1 - 14.9 % [facility] RDW SD 50.5(H) 35.7 - 48.1 fL [facility] NRBC abs 0.00 0.00 - 0.01 K/cumm [facility] Blood 09/24/2024 6:59 PM [employer] P[employer] 09/24/2024 7:01 PM [employer] PIL[employer] Perry Hammond MD LAB BLOOD ORDERABLES Fin al Result [facility] [address] [facility] Department [place] [address] * (ABNORMAL) Comprehensive metabolic panel (09/24/2024 6:59 PM [employer] PILOT) Sodium 141 135 - 145 mmol/L Potassium, pl See Comment 3.3 - 4.9 [facility] Comment:Credited; Hemolyzed Specimen Chloride 99 97 - 110 mmol/L [facility] CO2 25 22 - 32 mmol/L [facility] Anion gap 17(H) 2 - 15 mmol/L [facility] BUN 23 6 - 25 mg/dL [facility] Creatinine 0.66 0.60 - 1.10 mg/dL [facility] Glucose 135 70 - 199 mg/dL [facility] Comment: Interpretive Data Fasting glucose >/= 126 mg/dl is diagnostic for diabetes. Fasting is defined as no caloric intake for at least 8 hours. Fasting glucose between 100 mg/dl to 125 mg/dl is diagnostic of prediabetes. In a patient with classic symptoms of hyperglycemia or hyperglycemic crisis, a random glucose >/= 200 mg/dl is diagnostic for diabetes. In the absence of unequivocal hyperglycemia, results should be confirmed by repeat testing. The classification and Diagnosis of Diabetes Diabetes Care 202; 46: S19-S40. Current interpretive data was last revised 2022. Calcium 11.0(H) 8.5 - 10.3 mg/dL [facility] Bilirubin, total 0.6 0.1 - 1.2 mg/dL [facility] Protein, pl 7.7 6.5 - 8.5 g/dL [facility] Albumin 4.2 3.5 - 5.0 g/dL [facility] Alk phos 57 40 - 130 Units/L [facility] ALT 22 7 - 45 Units/L NIKOLAI AST See Comment 10 - 45 [facility] Comment:Credited; Hemolyzed Specimen Blood 09/24/2024 6:59 PM [employer] PILOT 09/24/2024 7:01 PM [employer] PIL[employer] Perry Hammond MD LAB BLOOD ORDERABLES Fin al Result [facility] [address] [facility] Department [place] [address] * ECG 12 lead (09/24/2024 6:46 PM [employer]ERCIAL AIRPLANE PILOT) Ventricular Rate EKG/Min 112 BPM [facility] Atrial Rate 112 BPM [facility] MA-Interval (MSEC) 138 ms [facility] QRS-Interval (MSEC) 92 ms [facility] QT-Interval (MSEC) 344 ms [facility] QTc 469 ms [facility] P [place] 42 degrees [facility] R [place] -72 degrees [facility] T [place] 100 degrees [facility] Diagnosis Sinus tachycardia Incomplete right bundle branch block Left anterior fascicular block Left ventricular hypertrophy with repolarization abnormality Abnormal ECG When compared with ECG of 31-OCT-2023 07:05, Vent. rate has increased BY 46 BPM T wave inversion no longer evident in Inferior leads T wave inversion less evident in Anterior leads T wave inversion now evident in Lateral leads Confirmed by ELIZABETH WANG M.D. ([id number]) on 09/24/2024 11:38:27 PM [facility] 09/24/2024 6:46 PM [employer] P[employer] 09/24/2024 11:38 PM [employer] AIR[employer] PIL[employer] Perry Hammond MD ECG ORDERABLES Final Re sult [facility] * Dexa Axial Skeleton Bone Density 1 or 2 Site (12/13/2023 2:29 PM CDT) Anatomical Region Laterality Modality Body N/A Mammography 12/13/2023 3:46 PM CDT Narrative 12/13/2023 3:47 PM CDT EXAM DESCRIPTION: DEXA AXIAL SKELETON BONE DENSITY 1 OR MORE SITES REASON FOR STUDY: 73 y/o year old F with given history of: Post menopausal status. 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 IMPRESSION: Osteoporosis. REFERENCE: Bone mineral density: T-Score: Normal (T-score above or = -1.0) Low bone mass (T-score between -1.0 and -2.5) replaces the previously used term osteopenia Osteoporosis (T-score = or below -2.5) Z-Score: Within the expected range for age (Z-score above -2.0) Below the expected range for age (Z-score is -2.0 or below) Please see below follow up recommendations. Medical evaluation for secondary causes of low bone mineral density may be appropriate. FRAX is a World Health Organization validated fracture risk assessment tool that calculates a person's 10 year probability of a major osteoporosis related fracture and hip fracture. According to the National Osteoporosis Foundation guidelines, postmenopausal women and men age 50 or older with low bone mass and a 10 year probability of a major osteoporosis related fracture = or greater than 20% or a 10 year probability of a hip fracture = or greater than 3% should be considered for pharmacological treatment for the prevention of osteoporosis. For further information, including treatment recommendations, please refer to the 2019 ISCD Official Positions (http://www.iscd.org) and the NOF's Clinician's Guide to Prevention and Treatment of Osteoporosis (http://www.nof.org/professionals/clinical-guidelines) THIS IS AN ELECTRONICALLY VERIFIED FINAL REPORT 12/13/2023 3:47 PM - Electronically signed by Mara Mcelroy M.D. TW: TW Report ID: [id number] Reading Location: [place] [address] Procedure Note Mara Mcelroy MD - 12/13/2023 EXAM DESCRIPTION: DEXA AXIAL SKELETON BONE DENSITY 1 OR MORE SITES REASON FOR STUDY: 73 y/o year old F with given history of: Post menopausal status. Installment Account Checker/Model: [employer] A (S/N [id number]) CLINICAL INFORMATION: Current height: 61 inches Maximum height: 64.5 inches Weight: 156 pounds Risk factors: None COMPARISON: None available FINDINGS: AP LUMBAR SPINE L1-L4: Total BMD is 1.029 g/cm2 T-score is -0.2 LEFT HIP: Total BMD is 0.678 g/cm2 T-score is -2.2 Femoral neck BMD is 0.571 g/cm2 T-score is -2.5 Left forearm BMD in the radius 33% is 0.523 g/cm2 T-score is -2.9 FRAX: FRAX not reported due to T-scores of hip, femoral neck and/or spine beingat or below -2.5 (Osteoporosis). IMPRESSION: Osteoporosis. REFERENCE: Bone mineral density: T-Score: Normal (T-score above or = -1.0) Low bone mass (T-score between -1.0 and -2.5) replaces thepreviously used term osteopenia Osteoporosis (T-score = or below -2.5) Z-Score: Within the expected range for age (Z-score above -2.0) Below the expected range for age (Z-score is -2.0 or below) Please see below follow up recommendations. Medical evaluation forsecondary causes of low bone mineral density may be appropriate. FRAX is a World Health Organization validated fracture risk assessmenttool that calculates a person's 10 year probability of a major osteoporosisrelated fracture and hip fracture. According to the National OsteoporosisFoundation guidelines, postmenopausal women and men age 50 or older with low bonemass and a 10 year probability of a major osteoporosis related fracture = or greater than 20% or a 10 year probability of a hip fracture = or greaterthan 3% should be considered for pharmacological treatment for the preventionof osteoporosis. For further information, including treatment recommendations, please referto the 2019 ISCD Official Positions (http://www.iscd.org) and the NOF's Clinician's Guide to Prevention and Treatment of Osteoporosis (http://www.nof.org/professionals/clinical-guidelines) THIS IS AN ELECTRONICALLY VERIFIED FINAL REPORT 12/13/2023 3:47 PM - Electronically signed by Mara Mcelroy M.D. TW: BARRIE Report ID: [id number] Reading Location: [place] [address] Purnima AV[facility] IMG DXA PROCEDURES Final R esult * Screening Mammogram Bilateral W [place] (07/19/2023 9:47 AM CDT) Anatomical Region Laterality Modality Breast Bilateral Mammography Impressions 07/24/2023 11:20 AM CDT BI-RADS ATLAS category (overall): 2 - Benign There is no mammographic evidence of malignancy. A 1 year screening mammogram is recommended. The patient has been or will be contacted. We recommend annual screening mammography for women at average risk of breast cancer beginning at age 40, based on guidelines of the [employer] (ACR Practice Parameter for the Performance of Screening and Diagnostic Mammography) and [employer]. For women with and elevated risk of breast cancer, please refer to the ACR Practice Parameter for specific screening recommendations. The patient will be entered into a reminder system with a target due date of 1 year for her next screening exam. Narrative 07/24/2023 11:20 AM CDT Screening Mammogram Bilateral W [place]: 07/19/23 The study was acquired using full field digital technology and interpreted from soft copy. 2D digital mammographic views, as well as 3D digital tomosynthesis were performed in the CC and MLO projections. CLINICAL: Screening mammogram, encounter for. No relevant medical history has been documented for this patient. History of breast cancer in Sister. COMPARISONS: 08/05/2019 Breast Imaging Screening Outside Reference 07/10/2018 Breast Imaging Screening Outside Reference 09/29/2013 Breast Imaging Screening Outside Reference 12/24/2008 Breast Imaging Screening Outside Reference BREAST TISSUE: The breasts have scattered areas of fibroglandular density. FINDINGS: There are benign calcifications in both breasts. No suspicious masses, suspicious calcifications, or other suspicious findings are seen within either breast. There has been no suspicious change. us Self Screening Mammogram IMG MAMMO PROCEDURES Fi nal Result * Hepatitis panel, acute (10/18/2020 11:19 AM [employer]) Hep A IgM NON-REACTI VE NON-REACT NICHOLAS [facility] Comment: For additional information, please refer to http://[employer]/faq/PVQ437 (This link is being provided for informational/ educational purposes only.) HepBsAg NON-REACTI VE NON-REACT NICHOLAS [facility] Hep B core IgM NON-REACTI VE NON-REACT NICHOLAS [facility] Hep C Ab NON-REACTI VE NON-REACT NICHOLAS [facility] SIGNAL TO CUT-OFF 0.04 <1.00 [facility] Comment: HCV antibody was non-reactive. There is no laboratory evidence of HCV infection. In most cases, no further action is required. However, if recent HCV exposure is suspected, a test for HCV RNA (test code 22407) is suggested. For additional information please refer to http://[facility]/faq/QUD15t5 (This link is being provided for informational/ educational purposes only.) 10/18/2020 11:1 9 AM [employer] 10/18/2020 11:22 AM [employer] [facility] MICROBIOLOGY - GE NERAL ORDERABLES Final Result [employer] [id number] [id number] * HM COLONOSCOPY (10/07/2020) Historical Provider MD HEALTH MAINTENANCE Final Result from Last 3 Months or Most Recently Relevant to Health Maintenance Insurance A MEDICARE HMO A MEDICARE HMO HU[employer] MEDICARE HMO [employer] [place]IC[place] [address] [address] [address] Advance Directives For more information, please contact: [phone] Documents on File Type Date Recorded 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 ADVANCE DIRECTIVE 01/05/2013 12:00 AM MAYTE BE WILL ADVANCE DIRECTIVE 01/05/2013 12:00 AM ELISABETH R OF [employer] SPECIALIST FINANCIAL/MEDICAL * Full Code (Latest Code Status on File) Date Activated Date Inactivated Comments 09/25/2024 12:01 PM 10/01/2024 6:28 PM * Full Code Date Activated Date Inactivated Comments 11/28/2023 9:20 AM 11/28/2023 2:19 PM * Full Code Date Activated Date Inactivated Comments 10/31/2023 9:50 AM 10/31/2023 4:23 PM * Full Code Date Activated Date Inactivated Comments 11/05/2022 6:53 AM 11/06/2022 7:12 PM Care Teams Mammography Technician Relationship Specialty Start Date End Date Purnima Rosario PA [address] [facility] [address] [place] [address] PCP - General 11/27/18 Niko Ledezma MD [address] [place] [address] Consulting Physician Rheumatology 09/30/20 Jose Iniguez MD [address] [facility] [address] [place] [id number] Consulting Physician Family Medicine 10/23/24
--- OUTSIDE RECORDS SUMMARY | 2024-11-16 21:35 | XMS_ITS | Encounter Summary ---
Author Organization [facility] Healthcare Address [address] [place] [address] Care Team Providers Care English And Reading Instructor Name Role Phone Purnima Rosario Primary Care Provider [phone] Niko Ledezma MD Unavailable [phone] Jose Iniguze MD Unavailable [phone] Jacque Pederson MA Unavailable Encounter Details Date Type Department Care Team (Late st Contact Info) Description 10/16/2024 Telephone [facility] Pain [facility] [address] Ros Britton RN Social History Tobacco Use Types Packs/Day Years Used Date Smoking Tobacco: Never Passive Smoke Exposure: Past Smokeless Tobacco: Never Alcohol Use Standard Drinks/Week Comments Never 0 (1 standard drink = 0.6 oz pur e alcohol) [facility] Utilities Answer Date Recorded In the past 12 months has [employer], gas, oil, or water [employer] threatened to shut off services in your [...] week 09/28/2024 How often do you attend [facility] or druze services? 1 to 4 times per year 09/28/2024 Do you belong to any clubs o r organizations such as mormon groups, unions, fraternal or athletic groups, or school groups? No 09/28/2024 How often do you attend meet ings of the clubs or organizations you belong to? Never 09/28/2024 Are you , , di vorced, , never , or living with a partner? 09/28/2024 AUDIT-C Answer Date Recorded Q1: How often do you have a drink containing alcohol? Never 09/25/2024 Q2: How many drinks containi ng alcohol do you have on a typical day when you are drinking? Patient does not drink Q3: How often do you have si x or more drinks on one occasion? Never 09/25/2024 Overall Financial Resource Strain (CARDIA) Answe r Date Recorded How hard is it for you to pa y for the very basics like food, housing, medical care, and heating? Not hard at all 09/28/2024 PHQ-2 Answer Date Recorded PHQ-2 Total Score 2 06/22/2024 Hunger Vital Sign Answer Date Recorded Within [...] any time in the past 12 m [facility], were you homeless or living in a retirement (including now)? No 09/28/2024 Personal Safety Answer Date Recorded Have you ever been in or are you currently in a harmful physical or emotional relationship or is someone making you feel afraid or unsafe? 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 [address] [place] [address] Consulting Physician Family Medicine 10/23/24 Jacque Pederson, RACHNA [address] [place] [address] [address] [place] [address] ACO Care Student Development Dean 11/06/24 11/09/24 documented as of this encounter
--- OUTSIDE RECORDS SUMMARY | 2024-11-16 21:35 | XMS_ITS | Clinical Summary ---
Author Organization [facility] Address [address] [place] [address] Care Team Providers Care Benefits Processor Name Role Phone Purnima Rosario Primary Care Provider [phone] Niko Ledezma MD Unavailable [phone] Jose Iniguez MD Unavailable [phone] Allergies Active Allergy Reactions Criticality Noted Date [...] hours as needed for pain 60 capsule Active multivitamin capsule Take 1 capsule by mouth daily Lupavita - Active aspirin 81 mg chewable tablet Take 1 tablet (81 mg total) by mouth daily Active spironolactone (ALDACTONE) 25 mg tablet Take 0.5 tablets (12.5 mg total) by mouth daily 45 tablet 3 Active empagliflozin (Jardiance) 10 mg tabletIndication s:Hypomagnesemia ,Palpitations,Co ronary artery calcification seen on CAT scan,Dyspnea on exertion,Mixed hyperlipidemia,C hronic combined systolic and diastolic heart failure (CMS/HCC) (HCC),Cardiomyop athy, unspecified type (HCC) Take 1 tablet (10 mg total) by mouth daily 90 tablet Active metoprolol XL (TOPROL-XL) 25 mg extended release tabletIndication s:Hypomagnesemia ,Palpitations,Co ronary artery calcification seen on CAT scan,Dyspnea on exertion,Mixed hyperlipidemia,C hronic combined systolic and diastolic heart failure (CMS/HCC) (HCC),Cardiomyop athy, unspecified type (HCC) Take 1 tablet (25 mg total) by mouth daily 90 tablet Active losartan (COZAAR) 25 mg tabletIndication s:Hypomagnesemia [...] 1 tablet (100 mcg total) by 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 Encouraged Calcium and Vitamin D and weight bearing exercise for bone health. Reviewed immunizations Reviewed age appropirate screenings. Influenza vaccine refused 11/16/2024 Lumbar radiculopathy 09/28/2024 Assessment & Plan (11/16/2024 12:55 AM GROCERY BAGGER): This is a significant, separately identifiable problem [...] 06/22/2024 Assessment & Plan (11/16/2024 12:50 AM GROCERY BAGGER): Weight/BMI is in healthy range. Continue healthy lifestyle to maintain. Assessment & Plan (06/22/2024 9:40 AM CDT): Weight/BMI is in healthy range. Continue healthy lifestyle to maintain. IPMN (intraductal papillary mucinous neoplasm) 0 06/02/2024 Overview (06/02/2024): Per Dr. Marisol Campuzano at [facility] 04/2024 clinic note ASSESSMENT: Ms. Sanchez is [...] at that time. After our discussion, Ms. Sacnhez would like to proceed with this plan. I answered all of Ms. Sanchez s questions to her satisfaction. Assessment & Plan (11/16/2024 12:47 AM GROCERY BAGGER): Continue per Dr. Zurita at [facility]. Patient states she will have imaging in October to December 10, 2024 along with a CA 19-9 for monitoring Assessment & Plan (06/22/2024 12:45 PM CDT): Continue per Dr. Zurita at [facility]. Patient states she will have imaging in [...] endplate of the L5. Has follow-up with [facility] pain management in [place]. Will await their recommendations Palpitations 04/03/2024 Coronary artery calcification seen on CAT scan 0 04/03/2024 Hypokalemia 04/03/2024 Radicular pain of both lower extremities 024 Assessment & Plan (05/23/2024 4:11 PM CDT): This is a significant, separately identifiable problem that was evaluated and managed on the same day as the wellness exam Patient with persistent pain. Has appointment with [facility] pain management for further evaluation. Will [...] (-2.9). Assessment & Plan (10/05/2024 11:10 AM GROCERY BAGGER): Hx L5 endplate fracture. Evenity denied so started alendronate in 06/2024. Vit D (06/2024) was normal at 64. Repeat DEXA again in 1-2 years. Assessment & Plan (06/29/2024 1:29 PM CDT): Hx L5 endplate fracture. Will start approval of Evenity. Check Vit D level today. Assessment & Plan (05/23/2024 4:01 PM CDT): Continue per Rheumatology as they have been managing her osteoporosis Dysphagia 11/20/2023 Thyroid mass of unclear etiology 11/11/2023 Assessment & Plan (11/11/2023 11:07 AM GROCERY BAGGER): This is a significant, separately identifiable problem [...] those results. Coronary artery disease invo lving [place] coronary artery of [place] heart without angina pectoris 11/11/2023 Overview (11/11/2023): [...] disease-free. Assessment & Plan (11/16/2024 12:50 AM GROCERY BAGGER): Cardio - Dr. Mora -- History systolic/diastolic HF and palpitations. Left Cardiac cath done 10/31 Some narrowing. No blockage. She is on Jardiance 10. On spironolactone, losartan and metoprolol. Urinating a lot. Couldn't tolerate Entresto/KIMMY. Still refuses to take magnesium Assessment & Plan (05/23/2024 4:00 PM CDT): Patient is on statin beta-keisha and aspirin. Continue per Cardiology Assessment & Plan (11/11/2023 10:27 AM GROCERY BAGGER): CAD CHF both managed by Dr. Mcbride [facility]. Currently on ASA, simvistatin, Jardiance 10, [...] metoprolol Assessment & Plan (11/11/2023 10:28 AM GROCERY BAGGER): CAD CHF both managed by Dr. Mcbride [facility]. Currently on ASA, simvistatin, Jardiance 10, spironolactone, losartan and metoprolol. She has not been able to tolerate Entresto Proteinuria 03/14/2023 Assessment & Plan (10/05/2024 9:43 AM GROCERY BAGGER): Stable. Established with nephro Dr. uNñez who is monitoring. Deferring biopsy unless proteinuria [...] diabetes. Assessment & Plan (11/11/2023 10:31 AM GROCERY BAGGER): Pre-diabetes/hyperglycemia is a precursor to Dm. 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 Staff worked on finding her connection at [facility] with [facility] group there. Appreciate assistance with determining [...] workup. Assessment & Plan (11/19/2022 1:55 PM GROCERY BAGGER): Decreased appetite. CT chest/abd showed incidental cyst [...] as periumbilical. Will check stat labs at [facility] today. Will obtain CT abdomen and pelvis [...] 03/14/2022 Assessment & Plan (08/01/2022 3:07 PM GROCERY BAGGER): -symptoms much improved. chronic symptom. No prior [...] as periumbilical. Will check stat labs at [facility] today. Will obtain CT abdomen and pelvis [...] may consider ER while waiting for results. 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 Assessment & Plan (10/05/2024 11:10 AM GROCERY BAGGER): Hepatitis negative: 09/2020 TB quant negative: 10/2020 [...] 09/2020 Assessment & Plan (09/09/2023 3:13 PM GROCERY BAGGER): Hepatitis negative: 09/2020 TB quant negative: 10/2020 TPMT wnl: 09/2020 Assessment & Plan (06/17/2023 12:57 PM CDT): Hepatitis negative: 09/2020 TB quant negative: 10/2020 TPMT wnl: 09/2020 Assessment & Plan (03/04/2023 3:54 PM CDT): Hepatitis negative: 09/2020 TB quant negative: 10/2020 TPMT wnl: 09/2020 Assessment & Plan (11/19/2022 1:53 PM GROCERY BAGGER): Hepatitis negative: 09/2020 TB quant negative: 10/2020 TPMT wnl: 09/2020 Assessment & Plan (08/20/2022 1:43 PM GROCERY BAGGER): Hepatitis negative: 09/2020 TB quant negative: 10/2020 [...] Discussed 4th COVID vaccine and that the [employer] has not released any official guidelines regarding the booster dose for our patient population. If she would choose to get the 4th dose, advised to get the vaccine closer to her next Benlysta infusion and then post-pone the infusion by 2 weeks following the vaccine. Assessment & Plan (09/29/2021 11:33 AM GROCERY BAGGER): Hepatitis negative: 09/2020 TB quant negative: 10/2020 [...] labs Assessment & Plan (11/27/2020 10:20 AM GROCERY BAGGER): Awaiting recommendation from Dr. Medina. 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 Staff worked on finding her connection at [facility] with [facility] group there. Appreciate assistance with determining [...] of immediate evaluation. Plans to go to [facility]. Will await recommendation Assessment & Plan (12/02/2022 [...] level. Assessment & Plan (12/02/2021 12:34 PM GROCERY BAGGER): Persistent hypo magnesium even on supplement. Continue replacement. Will investigate further underlying causes as holding decreasing the PPI did not make a difference. Assessment & Plan (08/20/2021 8:38 PM GROCERY BAGGER): Magnesium continues to remain low. Continue with supplementation. Will decrease the PPI to see if we can get the magnesium stabilized. Redraw in about 2-3 weeks Assessment & Plan (05/06/2021 8:46 PM CDT): Check labs Assessment & Plan (12/04/2020 8:48 PM CDT): Continue Magnesium supplement and monitor labs Assessment & Plan (07/27/2020 7:29 AM GROCERY BAGGER): Stable. Continue replacement Assessment & Plan (11/18/2019 9:06 PM GROCERY BAGGER): Continue replacement Recheck labs for stability Assessment & Plan (10/18/2019 4:00 PM GROCERY BAGGER): This is a significant, separately identifiable problem that was evaluated and managed on the same day as the wellness exam Started supplement last week. 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 Other forms of systemic lupus erythematosus 03/24 [...] wrist. Assessment & Plan (11/16/2024 12:49 AM GROCERY BAGGER): Continue per [facility]. On leflunomide 20 daily in Ramon list IV monthly Assessment & Plan (10/05/2024 11:09 AM GROCERY BAGGER): Stable on leflunomide and Benlysta IV. Wanting to switch to Benlysta SQ however due to upy-gh-bbswlb cost and with her back pain/sciatica she [...] Plan (05/23/2024 3:59 PM CDT): Continue per [facility]. They are managing her lupus. [...] needed. Assessment & Plan (11/11/2023 10:31 AM GROCERY BAGGER): Continue [facility] [place] Assessment & Plan (09/09/2023 3:13 PM GROCERY BAGGER): Improvement of peripheral joint synovitis and tenderness [...] Plan (06/17/2023 9:53 AM CDT): Continue per [facility]. States she has not appointment this [...] Plan (01/20/2023 2:45 PM CDT): Continue per [facility] for management of her lupus Assessment & Plan (12/02/2022 3:04 PM CDT): Continue per [facility] Assessment & Plan (11/19/2022 1:53 PM GROCERY BAGGER): Improvement of peripheral joint synovitis and tenderness [...] needed. Assessment & Plan (08/20/2022 1:43 PM GROCERY BAGGER): Improved synovitis and tenderness noted on today's [...] needed. Assessment & Plan (09/29/2021 11:33 AM GROCERY BAGGER): Stable synovitis and tenderness noted on peripheral [...] needed. Assessment & Plan (08/20/2021 8:38 PM GROCERY BAGGER): Continue per Rheumatology Assessment & Plan (06/30/2021 [...] STLRheum. Assessment & Plan (11/01/2020 11:54 AM GROCERY BAGGER): US right hand/wrist (10/25/20):Mild effusions and power [...] Ledezma. Assessment & Plan (10/18/2020 12:10 PM GROCERY BAGGER): 69-year-old female with PMHx of lupus, Raynaud's, [...] Ledezma. Assessment & Plan (07/27/2020 7:30 AM GROCERY BAGGER): Patient states she knows that she has [...] also. Assessment & Plan (10/18/2019 3:56 PM GROCERY BAGGER): Pt still not interested in f/u Rheumatology. Assessment & Plan (04/18/2019 10:39 AM CDT): Recheck labs. Menopause 02/08/2019 Assessment & Plan (11/11/2023 10:32 AM GROCERY BAGGER): Check DEXA Assessment & Plan (10/25/2019 3:28 PM GROCERY BAGGER): Due for DXA Assessment & Plan (02/08/2019 7:35 PM CDT): DXA order provided SAPNA on CPAP 01/27/2019 Overview (01/22/2023): Home study 2015 --- Doesn't use CPAP regular. Assessment & Plan (11/11/2023 10:29 AM GROCERY BAGGER): Home study 2015 --- Doesn't use CPAP regular. Assessment & Plan (12/02/2021 12:34 PM GROCERY BAGGER): Continue CPAP Assessment & Plan (08/20/2021 8:38 PM GROCERY BAGGER): Continue with CPAP Assessment & Plan (05/06/2021 8:48 PM CDT): Reviewed importance of using CPAP and risk of untreted/under treated SAPNA. She doesn't want to see PUlm Assessment & Plan (12/04/2020 8:46 PM CDT): Continue CPAP Assessment & Plan (11/27/2020 10:17 AM GROCERY BAGGER): Continue CPAP Assessment & Plan (04/23/2020 12:57 PM CDT): Continue CPAP. Has all needed supplies Assessment & Plan (10/18/2019 3:53 PM GROCERY BAGGER): Continue CPAP. Has all the needed suppplies Assessment & Plan (01/27/2019 9:37 AM CDT): Doing well with it. Using nightly. Has all the needed supplies Primary hypertension 01/26/2019 Assessment & Plan (11/16/2024 12:49 AM GROCERY BAGGER): Bp is stable/in acceptable range for any [...] Cardiology Assessment & Plan (11/11/2023 10:29 AM GROCERY BAGGER): CAD CHF both managed by Dr. Mcbride [facility]. Currently on ASA, simvistatin, Jardiance 10, [...] medication Assessment & Plan (12/02/2021 12:31 PM GROCERY BAGGER): Bp is stable/in acceptable range for any [...] labs. Assessment & Plan (11/27/2020 10:18 AM GROCERY BAGGER): Bp is stable/in acceptable range for any co-morbidities. Encouraged to limit sodium intake and exercise for weight control. Avoid nephrotoxic drugs including NSAIDs. Monitor labs. Assessment & Plan (07/27/2020 7:26 AM GROCERY BAGGER): Bp is stable/in acceptable range for any co-morbidities. Encouraged to limit sodium intake and exercise for weight control. Avoid nephrotoxic drugs including NSAIDs. Monitor labs. Assessment & Plan (04/23/2020 12:58 PM CDT): Avoid nephrotoxic drugs including NSAIDs. Monitor labs. Bp is stable/in acceptable range for any co-morbidities. Encouraged to limit sodium intake and exercise for weight control. Assessment & Plan (11/19/2019 5:47 PM GROCERY BAGGER): Bp is stable/in acceptable range for any co-morbidities. Encouraged to limit sodium intake and exercise for weight control. Assessment & Plan (10/18/2019 3:54 PM GROCERY BAGGER): Bp is stable/in acceptable range for any [...] 01/26/2019 Assessment & Plan (11/16/2024 12:48 AM GROCERY BAGGER): Encouraged patient to follow low fat/low chol [...] statin Assessment & Plan (11/11/2023 10:28 AM GROCERY BAGGER): Encouraged patient to follow low fat/low chol [...] simvastatin Assessment & Plan (12/02/2021 12:32 PM GROCERY BAGGER): Encouraged patient to follow low fat/low chol diet like the Mediterranean diet. Increase good fats in the diet. Increase exercise. Monitor labs as needed. Continue statin Assessment & Plan (08/20/2021 8:37 PM GROCERY BAGGER): Encouraged patient to follow fat/low chol diet [...] statin Assessment & Plan (07/27/2020 7:28 AM GROCERY BAGGER): Encouraged patient to follow fat/low chol diet like the Mediterranean diet. Increase good fats in the diet. Increase exercise. Monitor labs as needed. Assessment & Plan (04/23/2020 1:01 PM CDT): Increase to 400mg bid Recheck labs in a few months Assessment & Plan (11/18/2019 9:04 PM GROCERY BAGGER): Encouraged patient to continue low fat/low chol diet. Continue exercise. Increase good fats in the diet. Monitor labs as needed. Assessment & Plan (10/25/2019 3:29 PM GROCERY BAGGER): Recheck labs Assessment & Plan (10/18/2019 3:55 PM GROCERY BAGGER): Encouraged patient to continue low fat/low chol diet. Continue exercise. Increase good fats in the diet. Monitor labs as needed. D Assessment & Plan (02/08/2019 7:32 PM CDT): Encouraged patient to continue low fat/low chol diet. Continue exercise. Increase good fats in the diet. Monitor labs as needed. Acquired hypothyroidism 01/26/2019 Assessment & Plan (11/16/2024 12:48 AM GROCERY BAGGER): Continue levothyroxine 100 mcg. Monitor labs. Assessment & Plan (05/23/2024 3:59 PM CDT): Continue levothyroxine 112 mcg. Monitor labs. Ultrasound showed a TI-RADS category 1. No further follow-up needed Assessment & Plan (11/11/2023 10:28 AM GROCERY BAGGER): Continue levothyroxine. Monitor labs. Continue levothyroxine Assessment [...] labs Assessment & Plan (12/02/2021 12:32 PM GROCERY BAGGER): Continue Synthroid 112 Assessment & Plan (08/20/2021 8:37 PM GROCERY BAGGER): Continue levothyroxine. Monitor labs. Assessment & Plan (05/06/2021 8:44 PM CDT): Continue levothyroxine. Monitor labs. Assessment & Plan (01/14/2021 2:56 PM CDT): Check labs Assessment & Plan (12/04/2020 8:47 PM CDT): Stable at 112 Synthroid BRAND. Recheck in 4 weeks for stability Continue to monitor. Assessment & Plan (11/27/2020 10:18 AM GROCERY BAGGER): Continue to monitor closely On Synthroid 112 Assessment & Plan (07/27/2020 7:29 AM GROCERY BAGGER): Patient is taking her levothyroxine as directed. [...] dose. Assessment & Plan (11/18/2019 9:05 PM GROCERY BAGGER): Continue current dose. Recheck again in a month Assessment & Plan (10/25/2019 3:29 PM GROCERY BAGGER): Continue to drop dose and monitor labs until no longer supressed. Pt voices understanding Assessment & Plan (10/18/2019 4:01 PM GROCERY BAGGER): This is a significant, separately identifiable problem [...] History of pulmonary embolism 01/26/2019 History of ME (myocardial infarction) 01/26/2019 History of endometrial ablation 01/26/2019 Chronic gout of multiple sites 01/26/2019 Assessment & Plan (05/23/2024 3:55 PM CDT): No flares. Continue allopurinol Assessment & Plan (11/11/2023 10:28 AM GROCERY BAGGER): Continue allopurinol Assessment & Plan (12/02/2022 3:02 PM CDT): Continue allopurinol Assessment & Plan (12/02/2021 12:32 PM GROCERY BAGGER): Continue allopurinol. No current gout flares Assessment & Plan (05/06/2021 8:47 PM CDT): No flairs with allopurinol Assessment & Plan (12/04/2020 8:47 PM CDT): Continue allopurinol Assessment & Plan (11/27/2020 10:18 AM GROCERY BAGGER): Stable with allopurinol Assessment & Plan (07/27/2020 7:28 AM GROCERY BAGGER): Stable with allopurinol Assessment & Plan (04/23/2020 12:58 PM CDT): No current flairs Assessment & Plan (11/18/2019 9:04 PM GROCERY BAGGER): No current sxs or flairs. Refills to the pharmacy Assessment & Plan (10/18/2019 3:55 PM GROCERY BAGGER): Continue the allopurinol Vitamin D deficiency 01/26/2019 Assessment & Plan (12/02/2022 3:03 PM CDT): Supplement Assessment & Plan (12/02/2021 12:33 PM GROCERY BAGGER): Supplement Assessment & Plan (12/04/2020 8:46 PM CDT): supplement Assessment & Plan (04/23/2020 12:58 PM CDT): supplement Assessment & Plan (10/18/2019 3:54 PM GROCERY BAGGER): supplement Assessment & Plan (02/08/2019 7:31 PM CDT): Continue with otc supplement Moderate episode of recurrent major depressive d isorder 01/26/2019 Assessment & Plan (11/16/2024 12:48 AM GROCERY BAGGER): Depression symptoms are stable with Cymbalta 60 [...] use. Assessment & Plan (11/11/2023 10:29 AM GROCERY BAGGER): Stable without medication Assessment & Plan (03/24/2023 7:38 PM CDT): Stable without medication Assessment & Plan (05/06/2021 8:47 PM CDT): Currently stable without medication Assessment & Plan (07/27/2020 7:31 AM GROCERY BAGGER): Patient stopped her Lexapro if she felt [...] COVID. Assessment & Plan (10/18/2019 4:01 PM GROCERY BAGGER): This is a significant, separately identifiable problem [...] Overview (06/02/2024): Per Dr. Marisol Campuzano at [facility] 04/2024 clinic note ASSESSMENT: Ms. Sanchez is [...] neoplasm is suspected Referral to hepatobilliary with [facility] for further evaluation Lower extremity arterial ins ufficiency, severe, right 11/11/2023 05/23/2024 Assessment & Plan (11/11/2023 11:08 AM GROCERY BAGGER): This is a significant, separately identifiable problem [...] 05/23/2024 Assessment & Plan (11/11/2023 10:31 AM GROCERY BAGGER): This is a significant, separately identifiable problem that was evaluated and managed on the same day as the wellness exam Patient is noticing dysphagia with solids. Has a history of esophageal stricture and has required dilation in the past. Prefers to be seen down at [facility]. Will place referral. Stressed importance of eating small bites to avoid choking. Dyspnea on exertion 10/18/2023 05/23/20 Chest pain 10/18/2023 05/23/2024 Sciatica of left side 09/09/20232023 Assessment & Plan (09/09/2023 3:15 PM GROCERY BAGGER): Onset after falling on the stairs a [...] 24 Assessment & Plan (11/11/2023 10:32 AM GROCERY BAGGER): Weight/BMI is in healthy range. Continue healthy [...] of immediate evaluation. Plans to go to [facility]. Will await recommendation Chest pressure 12/28/2022 01/20/2023 [...] of immediate evaluation. Plans to go to [facility]. Will await recommendation ER done in the office is similar to previous EKGs but irregular rhythym is noted. Medicare annual wellness visit, subsequent 12/02/2022 05/23/2024 Assessment & Plan (11/11/2023 10:31 AM GROCERY BAGGER): Encouraged healthy lifestyle, good nutrition and exercise. [...] 23 Assessment & Plan (11/20/2022 7:58 AM GROCERY BAGGER): Weight/BMI is in healthy range. Continue healthy [...] screenings. Assessment & Plan (12/02/2021 12:34 PM GROCERY BAGGER): Encouraged healthy lifestyle, good nutrition and exercise. Encouraged Calcium and Vitamin D and weight bearing exercise for bone health. Reviewed immunizations Reviewed age appropirate screenings. BMI 35.0-35.9,adult 11/07/2021 05/08/20 22 Assessment & Plan (11/07/2021 2:10 PM GROCERY BAGGER): Obesity is unchanged. Discussed the patient's BMI. The BMI is above average. BMI management plan is completed. BMI Follow-up includes: nutrition counseling, exercise counseling and education provided. Obesity (BMI 30-39.9) 11/07/20212021 Assessment & Plan (11/07/2021 2:11 PM GROCERY BAGGER): Obesity is unchanged. Discussed the patient's BMI. The BMI is above average. BMI management plan is completed. BMI Follow-up includes: nutrition counseling, exercise counseling and education provided. Obesity (BMI 30-39.9) 08/01/20212021 Assessment & Plan (08/01/2021 3:22 PM GROCERY BAGGER): Obesity is unchanged. Discussed the patient's BMI. The BMI is above average. BMI management plan is completed. BMI Follow-up includes: nutrition counseling, exercise counseling and education provided. BMI 34.0-34.9,adult 08/01/2021 11/07/19 Assessment & Plan (08/01/2021 3:22 PM GROCERY BAGGER): Obesity is unchanged. Discussed the patient's BMI. [...] and education provided. BMI 32.0-32.9,adult 05/01/2021 08/01/20 Assessment & Plan (05/01/2021 4:43 PM CDT): [...] 11/29/20202020 Assessment & Plan (11/29/2020 3:13 PM GROCERY BAGGER): Obesity is unchanged. Discussed the patient's BMI. The BMI is above average. BMI management plan is completed. BMI Follow-up includes: nutrition counseling, exercise counseling and education provided. BMI 34.0-34.9,adult 11/29/2020 01/13/20 21 Assessment & Plan (11/29/2020 3:14 PM GROCERY BAGGER): Obesity is unchanged. Discussed the patient's BMI. The BMI is above average. BMI management plan is completed. BMI Follow-up includes: nutrition counseling, exercise counseling and education provided. BMI 34.0-34.9,adult 09/27/2020 11/30/19 21 Assessment & Plan (09/27/2020 3:12 PM GROCERY BAGGER): Obesity is unchanged. Discussed the patient's BMI. The BMI is above average. BMI management plan is completed. BMI Follow-up includes: nutrition counseling, exercise counseling and education provided. Arthralgia 07/27/2020 05/23/2024 Assessment & Plan (11/27/2020 10:13 AM GROCERY BAGGER): Refer to Rheum for further evaluation as [...] re-evaluate Assessment & Plan (10/25/2019 3:30 PM GROCERY BAGGER): Check labs Annual physical exam 10/18/2019 021 Assessment & Plan (12/04/2020 8:49 PM CDT): Encouraged healthy lifestyle, good nutrition and exercise. Encouraged Calcium and Vitamin D and weight bearing exercise for bone health. Reviewed immunizations Reviewed age appropirate screenings. Assessment & Plan (10/18/2019 4:00 PM GROCERY BAGGER): Encouraged healthy lifestyle, good nutrition and exercise. Encouraged Calcium and Vitamin D and weight bearing exercise for bone health. Reviewed immunizations Reviewed age appropirate screenings. BMI 31.0-31.9,adult 10/14/2019 04/23/20 Assessment & Plan (11/18/2019 3:14 PM GROCERY BAGGER): BMI Follow-up includes: Discussed diet and exercising counseling. Assessment & Plan (10/18/2019 3:56 PM GROCERY BAGGER): Obesity is unchanged. Discussed the patient's BMI. [...] 05/23/2024 Assessment & Plan (10/25/2019 3:30 PM GROCERY BAGGER): EKG in the office today was similar [...] 12/28/2022 Assessment & Plan (10/18/2019 3:53 PM GROCERY BAGGER): Cartotid US done 2018. No significant blockage. [...] 01/27/20192020 Assessment & Plan (11/27/2020 10:17 AM GROCERY BAGGER): Obesity is unchanged. Discussed the patient's BMI. The BMI is above average. BMI management plan is completed. BMI Follow-up includes: nutrition counseling, exercise counseling and education provided. Assessment & Plan (07/27/2020 7:25 AM GROCERY BAGGER): Obesity is unchanged. Discussed the patient's BMI. [...] provided. Assessment & Plan (11/18/2019 3:14 PM GROCERY BAGGER): BMI Follow-up includes: Discussed diet and exercising counseling. Assessment & Plan (10/14/2019 9:53 AM GROCERY BAGGER): Obesity is unchanged. Discussed the patient's BMI. [...] 12/02/2022 Assessment & Plan (12/02/2021 12:31 PM GROCERY BAGGER): Avoid nephrotoxic drugs including NSAIDs. Monitor labs. Assessment & Plan (05/06/2021 8:45 PM CDT): Avoid nephrotoxic drugs including NSAIDs. Monitor labs. Assessment & Plan (01/14/2021 2:56 PM CDT): Avoid nephrotoxic drugs including NSAIDs. Monitor labs. Assessment & Plan (12/04/2020 8:46 PM CDT): Avoid nephrotoxic drugs including NSAIDs. Monitor labs. Assessment & Plan (11/27/2020 10:17 AM GROCERY BAGGER): Caution with NSAIDs Assessment & Plan (07/27/2020 7:25 AM GROCERY BAGGER): Avoid nephrotoxic drugs including NSAIDs. Monitor labs. Assessment & Plan (04/23/2020 12:58 PM CDT): Avoid nephrotoxic drugs including NSAIDs. Monitor labs. Assessment & Plan (10/18/2019 3:54 PM GROCERY BAGGER): Avoid nephrotoxic drugs including NSAIDs. Monitor labs. Has been stable. Continue to monitor Assessment & Plan (02/08/2019 7:32 PM CDT): Avoid nephrotoxic drugs including NSAIDs. Monitor labs. Rebounded with cessation of the NSAID. Continue to follow closely Gastroesophageal reflux dise ase without esophagitis 01/26/2019 12/28/2022 Assessment & Plan (12/02/2022 3:02 PM CDT): Continue esomeprazole Assessment & Plan (08/01/2022 3:07 PM GROCERY BAGGER): -symptoms well controlled with Nexium 20 mg daily. Will continue. Assessment & Plan (04/11/2022 11:14 AM CDT): -symptoms well controlled with Nexium 20 mg daily. Will continue. Assessment & Plan (12/02/2021 12:32 PM GROCERY BAGGER): Continue PPI just enough to manage her symptoms. Assessment & Plan (08/20/2021 8:38 PM GROCERY BAGGER): Continue PPI. Will try did decrease it to maybe once a week or every other day to see if the magnesium stabilizes but her GERD symptoms are controlled. Assessment & Plan (05/06/2021 8:44 PM CDT): Stable with PPI Assessment & Plan (12/04/2020 8:46 PM CDT): Continue PPI Assessment & Plan (04/23/2020 12:58 PM CDT): Continue PPI Assessment & Plan (10/18/2019 3:54 PM GROCERY BAGGER): Continue PPI Assessment & Plan (02/08/2019 7:31 [...] diabetes. Assessment & Plan (12/02/2021 12:33 PM GROCERY BAGGER): Pre-diabetes/hyperglycemia is a precursor to Dm. Stressed [...] diabetes. Assessment & Plan (11/27/2020 10:18 AM GROCERY BAGGER): Pre-diabetes/hyperglycemia is a precursor to Dm. Stressed importance of working on diet (decrease your simple sugars and one carbohydrate with each meal) and increase you exercise to achieve weight loss and this will help prevent you from progressing to diabetes. Assessment & Plan (07/27/2020 7:29 AM GROCERY BAGGER): Pre-diabetes is a precursor to Dm. Stressed [...] diabetes. Assessment & Plan (11/18/2019 9:05 PM GROCERY BAGGER): Pre-diabetes/hyperglycemia is a precursor to Dm. Stressed importance of working on diet (decrease your simple sugars and one carbohydrate with each meal) and increase you exercise to achieve weight loss and this will help prevent you from progressing to diabetes. Assessment & Plan (10/25/2019 3:29 PM GROCERY BAGGER): Pre-diabetes/hyperglycemia is a precursor to Dm. Stressed importance of working on diet (decrease your simple sugars and one carbohydrate with each meal) and increase you exercise to achieve weight loss and this will help prevent you from progressing to diabetes. Assessment & Plan (10/18/2019 3:55 PM GROCERY BAGGER): Pre-diabetes/hyperglycemia is a precursor to Dm. Stressed [...] help prevent you from progressing to diabetes. Encounters Date Type Department Care Team Description 11/10/2024 ALICE ED Outreach [facility] Accountable Care [address] [address] Jacque Pederson MA 11/09/2024 ALICE ED Outreach [facility] Care [address] [address] Jacque Pederson MA 11/06/2024 Telephone [facility] Medical Group Family Medicine [address] [phone] Purnima Rosario PA Medical Question/Miscellaneou s 11/06/2024 ALICE ED Outreach [facility] Care [address] [address] Jacque Pederson MA 11/04/2024 11:20 PM GROCERY BAGGER - 11/05/2024 6:57 AM GROCERY BAGGER Emergency [address] [address] Pantera Del Rio DO Acute exacerbation of chronic low back pain (Primary Dx); Mural thickening of sigmoid colon Discharge Disposition: Discharge to home or self care 11/04/[address] [place] [phone] Purnima Rosario PA pt in severe pain 11/04/[address] [place] [phone] Purnima Rosario PA Med Refill 10/30/2024 8:50 AM GROCERY BAGGER - 10/30/2024 11:59 PM GROCERY BAGGER Hospital Encounter [facility] Pain Mgmt [address] [place] [address] Valerie Rosado MD Bulge of lumbar disc without myelopathy (Primary Dx); Lumbar radiculopathy; Neural foraminal stenosis of lumbar spine Discharge Disposition: Discharge to home or self care 10/29/2024 10:30 AM GROCERY BAGGER Office Visit [address] [phone] Purnima Rosario PA Medicare annual wellness visit, subsequent (Primary Dx); Lumbar radiculopathy; Coronary artery disease involving houlton coronary artery of houlton heart without angina pectoris; Other forms of systemic lupus erythematosus, unspecified organ involvement status (HCC); Primary hypertension; Mixed hyperlipidemia; Acquired hypothyroidism; Moderate episode of recurrent major depressive disorder (HCC); Breast cancer screening by mammogram; IPMN (intraductal papillary mucinous neoplasm); Influenza vaccine refused; BMI 25.0-25.9,adult 10/23/2024 12:30 PM GROCERY BAGGER - 10/23/2024 11:59 PM GROCERY BAGGER Hospital Encounter [facility] Diag Imaging [address] [place] [address] Acute exacerbation of chronic low back pain; Radicular pain of both lower extremities Discharge Disposition: Discharge to home or self care 10/23/2024 11:26 AM GROCERY BAGGER - 10/23/2024 11:59 PM GROCERY BAGGER Hospital Encounter [facility] Pain Mg[facility] [address] [address] Valerie Rosado MD Lumbar radiculopathy (Primary Dx); Acute exacerbation of chronic low back pain; Radicular pain of both lower extremities; Neural foraminal stenosis of lumbar spine; Bulge of lumbar disc without myelopathy Discharge Disposition: Discharge to home or self care 10/16/2024 Telephone [facility] Pain [facility] [address] [address] Ros Britton RN 10/05/2024 9:45 AM GROCERY BAGGER Office Visit [address] [phone] Anika Diaz PA Other forms of systemic lupus erythematosus, unspecified organ involvement status (HCC) (Primary Dx); Proteinuria, unspecified type; penitentiary current use of therapeutic drug; Age-related osteoporosis without current pathological fracture 10/05/[address] [phone] Anika Diaz PA Benlysta SQ Approved 10/02/2024 Telephone [facility] Medical [facility] Family Medicine [address] [phone] Purnima Rosario PA 10/02/2024 ALICE IP Outreach [facility] Accountable Care Organization [address] [place] [phone] Monica Sidhu LPN 09/29/2024 12:15 PM GROCERY BAGGER - 09/29/2024 12:55 PM GROCERY BAGGER Surgery [facility] Main OR [address] [place] [address] Valerie Rosado MD INJECTION TRANSFORAMINAL LUMBAR 4-5 LUMBAR 5-SACRAL 1 09/25/2024 1:18 AM GROCERY BAGGER - 10/01/2024 2:23 PM GROCERY BAGGER Hospital Encounter [address] [address] Perry Hammond MD Chowdhury, Farhanaz, MD Al Furgani, MD Oleksandr Jean Baptiste, Carlos Guillen MD Acute exacerbation of chronic low back pain (Primary Dx); Hypokalemia; Hypomagnesemia; Lumbar radiculopathy Discharge Disposition: Discharge to home, home health skilled care from Last 3 Months Immunizations Immunization Administration Dates Next Due Influenza, Trivalent, High D ose, Split, Preservative Free, Intramuscular 07/23/2019 Influenza, Unspecified 07/09/2024,2022,10/24/2022(Defer red: Patient Refused),10/24/2022(Deferred: Patient Refused),06/23/2022,11/07/2021(Deferre d: Patient Refused),06/23/2020 [employer] SARS-CoV-2 Vaccination 06/23/2022 Pfizer SARS-CoV-2 Monovalent Vaccination (12+ Yrs) PURPLE 09/09/2020 Pfizer Sars-Cov-2 Bivalent V accination (12+ YRS) 06/29/2022 Pneumococcal Conjugate PCV 13 04/16/2017 Pneumococcal Polysaccharide PPV23 09/22/2011 Tdap 04/03/2016 Surgical History Surgery Date Site/Laterality Comments BREAST SURGERY KNEE SURGERY Bilateral total knee replacement THYROID SURGERY COLONOSCOPY 09/23/2019 - 09/22/2020 [place], [place] UPPER GASTROINTESTINAL ENDOSCOPY 09/23/2019 - 09/22/2020 [place], [place] BREAST BIOPSY ENDOMETRIAL ABLATION Medical History Medical History Date Comments Hyperlipidemia Arrhythmia CHF (congestive heart failure) (CMS/HCC) (HCC) History of pulmonary embolus (PE) Hypertension Thyroid disease Systemic lupus erythematosus (CMS/HCC) (HCC) GERD (gastroesophageal reflux disease) Pericardial effusion Cardiomyopathy (HCC) Hypomagnesemia Gout Depression SAPNA (obstructive sleep apnea) Heart murmur Chronic kidney disease Chronic diarrhea Colon polyp Dysphagia Family History Medical History Relation Name Comments Bone cancer Father Heart attack Mother Heart disease Mother Pancreatitis Mother Breast cancer Sister Relation Name Status Comments Father Mother Sister Social History Tobacco Use Types Packs/Day Years Used Date Smoking Tobacco: Never Passive Smoke Exposure: Past Smokeless Tobacco: Never Tobacco Cessation:Counseling Given: No Alcohol Use Standard Drinks/Week Comments Never 0 (1 standard drink = 0.6 oz pur e alcohol) [facility] Utilities Answer Date Recorded In the past 12 months has th e electric, gas, oil, or water company [...] often do you attend chur ch or restorationist services? 1 to 4 times per year 09/28/2024 Do you belong to any clubs o r organizations such as confucianist groups, unions, fraternal or athletic groups, or [...] were you homeless or living in a longterm (including now)? No 09/28/2024 Personal Safety Answer Date Recorded Have you ever been in or are you currently in a harmful physical or emotional relationship or is someone making you feel afraid or unsafe? 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 Not on file Not on file Obstetrics History Para Term AB IAB SAB Ectopic Multiple Livin g Live Births 4 3 3 Date Outcome GA Total Labor Labor/2nd/3rd Weight Sex Type Anes PTL Fanny A1 A5 Name Clin Term Term Term Last Filed Vital Signs Vital Sign Reading Time Taken Comments Blood Pressure 139/96 11/05/2024 12:20 AM GROCERY BAGGER Pulse 97 11/05/2024 12:20 AM GROCERY BAGGER Temperature 36.8 C (98.2 F) 11/04/2024 4:58 PM GROCERY BAGGER Respiratory Rate 24 11/05/2024 12:20 AM GROCERY BAGGER Oxygen Saturation 95% 11/05/2024 12:20 AM GROCERY BAGGER Inhaled Oxygen Concentration - - Weight 61.9 kg (136 lb 8 oz) 10/29/2024 10:36 AM GROCERY BAGGER Height 154.9 cm (5' 1 ) 10/29/2024 10:36 AM GROCERY BAGGER Body Mass Index 25.79 10/29/2024 10:36 AM GROCERY BAGGER Plan of Treatment Health Maintenance Due Date Last Done Comments Hepatitis B Screening 1968 Zoster Vaccine (1 of 2) 1999 Covid-19 Vaccine (2023-2 5 season) 2024 06/22/2023, 06/29/2022, 06/23/2022, Additional history exists Colon Cancer Screening-Colonoscopy 10/07/2025 10/07/2020, 10/07/2020 Depression Screening 10/29/2025 10/29/2024, 10/29/2024, 06/22/2024, Additional history exists Fall Risk Assessment 10/29/2025 10/29/2024, 10/01/2024, 11/11/2023, Additional history exists Well Visit 65+ 10/29/2025 10/29/2024, 04/23, 11/11/2023, Additional history exists Osteoporosis Screening-Bone Density Scan 12/12/2025 12/13/2023, 08/05/2019 DTaP/Tdap/Td Vaccine (2 - Td or Tdap) 04/03/2026 04/03/2016 Pneumococcal vaccine 65+ Discontinued 04/16/2017, 08/25 Colon Cancer Screening-CT Colonography Discontinued 10/07/2020, 10/07/2020 Colon Cancer Screening-DNA Stool Discontinued 10/07/19, 10/07/2020 Colon Cancer Screening-FIT Discontinued 10/07/2020, Colon Cancer Screening-Sigmoidoscopy Discontinued 10/07/2020, 10/07/2020 Hepatitis C Screening Completed 10/18/2020 Breast Cancer Screening-Mammogram Discontinued 07/19/2023, 08/05/2019, 07/10/2018 Influenza Vaccine Completed 07/09/2024, , 06/22/2023, Additional history exists Medical Devices Implanted Type Area Stone Processing Machine Operator Device Identifier Shelf Expiration Date Model / Serial / Lot [employer] Lisa Angio-Seal Vip 6fr Closere Device [id number] - [id number] - [id number] Implanted:Qty : 1 on 10/31/2023 by Garth Ireland MD at [facility] Vascular Closure Device Right: Common Femoral Artery [employer] Medical Lisa 07/23/2024 [id number] / [id number] Procedures Procedure Name Priority Date/Time Associated Diagnosis Comments CT HEAD WO CONTRAST ED 11/05/2024 12:[address] LUMBAR SPINE WO CONTRAST ED 11/05/2024 12:53 AM GROCERY BAGGER EGFR STAT 11/04/2024 9:38 PM GROCERY BAGGER DIFFERENTIAL AUTO STAT 11/04/2024 9:3 8 PM GROCERY BAGGER CRP (ACUTE PHASE) STAT 11/04/2024 9:3 8 PM GROCERY BAGGER ERYTHROCYTE SEDIMENTATION RATE STAT 11/04/2024 9:38 PM GROCERY BAGGER COMPREHENSIVE METABOLIC PANEL STAT 11/04/2024 9:38 PM GROCERY BAGGER CBC WITH AUTO DIFFERENTIAL STAT 11/04/2024 9:38 PM GROCERY BAGGER PAIN MGMT IMAGING LUMBAR/SACRAL SELECTIVE NERVE ROOT INJ (TFE) BILATERAL Schedule Routine, Read Routine (OP Routine) 10/30/2024 9:36 AM GROCERY BAGGER Lumbar radiculopathy XR PELVIS 1 OR 2 VIEWS Schedule Routine, Read Routine (OP Routine) 10/23/2024 12:48 PM GROCERY BAGGER Radicular pain of both lower extremities XR SPINE THORACIC 3 VIEWS Schedule Routine, Read Routine (OP Routine) 10/23/2024 12:48 PM GROCERY BAGGER Acute exacerbation of chronic low back pain XR SPINE LUMBAR COMPLETE 4 OR MORE VIEWS Schedule Routine, Read Routine (OP Routine) 10/23/2024 12:48 PM GROCERY BAGGER Acute exacerbation of chronic low back pain XR TIBIA FIBULA RIGHT2 VIEWS IP Routine 09/30/2024 1:35 PM GROCERY BAGGER EGFR Routine 09/30/2024 7:48 AM GROCERY BAGGER BASIC METABOLIC PANEL Routine 09/30/2024 7:48 AM GROCERY BAGGER FL FLUOROSCOPY < 1 HOUR IP Routine 09/29/2024 12:45 PM GROCERY BAGGER INJECTION TRANSFORAMINAL LUMBO/SACRAL 1 LEVEL 09/29/2024 12:30 PM GROCERY BAGGER Lumbar radiculopathy US VEIN DUPLEX LOWER EXTREMITY RIGHT LIMITED IP Routine 09/28/2024 11:34 AM GROCERY BAGGER EGFR Routine 09/26/2024 4:44 AM GROCERY BAGGER BASIC METABOLIC PANEL Routine 09/26/2024 4:44 AM GROCERY BAGGER EGFR Timed 09/25/2024 3:50 PM GROCERY BAGGER MAGNESIUM Timed 09/25/2024 3:50 PM GROCERY BAGGER BASIC METABOLIC PANEL Timed 09/25/2024 3:50 PM GROCERY BAGGER URINALYSIS, MICROSCOPIC ONLY STAT 09/25/2024 5:49 AM GROCERY BAGGER URINALYSIS AND REFLEX TO MICROSCOPIC AND CULTURE STAT 09/25/2024 5:[address] LUMBAR SPINE WO CONTRAST ED 09/25/2024 4:05 AM GROCERY BAGGER MAGNESIUM STAT 09/25/2024 3:37 AM GROCERY BAGGER PHOSPHORUS STAT 09/25/2024 3:37 AM GROCERY BAGGER POTASSIUM LEVEL STAT 09/25/2024 3:37 AM GROCERY BAGGER EGFR STAT 09/25/2024 1:59 AM GROCERY BAGGER BASIC METABOLIC PANEL STAT 09/25/2024 1:59 AM GROCERY BAGGER XR SPINE LUMBAR 2 OR 3 VIEWS ED 09/24/2024 8:56 PM GROCERY BAGGER EGFR STAT 09/24/2024 6:59 PM GROCERY BAGGER DIFFERENTIAL AUTO STAT 09/24/2024 6:5 9 PM GROCERY BAGGER COMPREHENSIVE METABOLIC PANEL STAT 09/24/2024 6:59 PM GROCERY BAGGER CBC WITH AUTO DIFFERENTIAL STAT 09/24/2024 6:59 PM GROCERY BAGGER ECG 12-LEAD STAT 09/24/2024 6:46 PM GROCERY BAGGER DEXA AXIAL SKELETON BONE DENSITY 1 OR MORE SITES Schedule Routine, Read Routine (OP Routine) 12/13/2023 2:29 PM CDT Menopause 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 Schedule Routine, Read Routine (OP Routine) 07/19/2023 9:47 AM CDT Screening mammogram, encounter for HEPATITIS PANEL, ACUTE Routine 10/18/2020 11:19 AM GROCERY BAGGER HM COLONOSCOPY Routine 10/07/2020 from Last 3 Months or Most Recently Relevant to Health Maintenance Results * CT Lumbar Spine WO Contrast (11/05/2024 12:53 AM GROCERY BAGGER) Anatomical Region Laterality Modality Spine N/A Computed Tomogra phy 11/05/2024 12:5 9 AM GROCERY BAGGER Narrative 11/05/2024 1:11 AM GROCERY BAGGER EXAM DESCRIPTION: CT LUMBAR SPINE WO CONTRAST [...] malalignment, or suspicious osseous lesion is seen. [id number] multilevel central canal and neural foraminal narrowing. [...] signed by Dixon HEREDIA T: Report ID: [id number] Reading Location: [id number] Procedure Note iDxon Sood MD - 11/05/2024 EXAM DESCRIPTION: CT [...] malalignment, or suspicious osseous lesion is seen. [id number] multilevel central canal and neural foraminal narrowing. [...] 1:11 AM - Electronically signed by Dixon Sood M.D. AR T: Report ID: [id number] Reading Location: [id number] us Pantera Del Rio DO IMG CT PROCEDURES Final Result * CT Head WO Contrast (11/05/2024 12:53 AM GROCERY BAGGER) Anatomical Region Laterality Modality Head and Neck N/A Computed Tomogra phy 11/05/2024 1:11 AM GROCERY BAGGER Narrative 11/05/2024 1:13 AM GROCERY BAGGER EXAM DESCRIPTION: CT HEAD WO CONTRAST REASON [...] BRAIN: No mass, hemorrhage, or recent infarct. [id number] chronic white matter ischemia. Volume within normal [...] signed by Dixon HEREDIA T: Report ID: [id number] Reading Location: [id number] Procedure Note Dixon Sood MD - 11/05/2024 [...] BRAIN: No mass, hemorrhage, or recent infarct. Sgwt-be-rtpehyxa chronic white matter ischemia. Volume within normal [...] signed by Dixon HEREDIA T: Report ID: [id number] Reading Location: [id number] us Pantera Del Rio DO IMG CT PROCEDURES Final Result * eGFR (11/04/2024 9:38 PM GROCERY BAGGER) eGFR 68 >=60 mL/min/1. 73 m2 Comment: [...] last reviewed 2021. Blood 11/04/2024 9:38 PM GROCERY BAGGER 11/04/2024 9:48 PM GROCERY BAGGER Yogesh AVELAR LAB BLOOD ORDERABLES Final R esult [place] [id number] [facility] Department [place] [address] * (ABNORMAL) Differential, auto (11/04/2024 9:38 PM GROCERY BAGGER) Neutrophil abs 8.3(H) 1.5 - 6.5 K/cumm Imm gran abs 0.1 0.0 - 0.1 K/cumm [facility] Lymphocyte abs 1.8 0.8 - 3.3 K/cumm [facility] Monocyte abs 1.1(H) 0.2 - 0.8 K/cumm [facility] Eosinophil abs 0.0 0.0 - 0.5 K/cumm [facility] Basophil abs 0.0 0.0 - 0.1 K/cumm [facility] Neutrophil pct 73.2 % [facility] Comment: Interpretive Data Percent cell count reference ranges are not reported, since discordance with absolute values may lead to misinterpretation of CBC data. Current Interpretive Data was last revised on 2017. Imm gran pct 0.7 % [facility] Comment: Interpretive Data Percent cell count reference ranges are not reported, since discordance with absolute values may lead to misinterpretation of CBC data. Current Interpretive Data was last revised on 2017. Lymphocyte pct 16.0 % [facility] Comment: Interpretive Data Percent cell count reference ranges are not reported, since discordance with absolute values may lead to misinterpretation of CBC data. Current Interpretive Data was last revised on 2017. Monocyte pct 9.4 % [facility] Comment: Interpretive Data Percent cell count reference ranges are not reported, since discordance with absolute values may lead to misinterpretation of CBC data. Current Interpretive Data was last revised on 2017. Eosinophil pct 0.4 % [facility] Comment: Interpretive Data Percent cell count reference ranges are not reported, since discordance with absolute values may lead to misinterpretation of CBC data. Current Interpretive Data was last revised on 2017. Basophil pct 0.3 % [facility] Comment: Interpretive Data Percent cell count reference ranges are not reported, since discordance with absolute values may lead to misinterpretation of CBC data. Current Interpretive Data was last revised on 2017. Blood 11/04/2024 9:38 PM GROCERY BAGGER 11/04/2024 9:48 PM GROCERY BAGGER Yogesh AVELAR LAB BLOOD ORDERABLES Final R esult [facility] [address] [facility] Department [place] [address] * (ABNORMAL) CBC with auto differential (11/04/2024 9:38 PM GROCERY BAGGER) WBC 11.3(H) 3.8 - 9.9 K/cumm Hgb 11.5(L) 11.9 - 15.5 g/dL [facility] Hct 33.4(L) 35.6 - 45.5 % [facility] Plt 314 150 - 400 K/cumm [facility] MPV 9.4 9.1 - 12.3 fL [facility] RBC 3.47(L) 3.90 - 5.20 M/cumm [facility] MCV 96.3 81.3 - 96.4 fL [facility] MCH 33.1 27.1 - 33.3 pg [facility] MCHC 34.4 32.3 - 35.7 g/dL [facility] RDW CV 13.7 11.1 - 14.9 % [facility] RDW SD 48.1 35.7 - 48.1 fL [facility] NRBC abs 0.00 0.00 - 0.01 K/cumm [facility] Blood 11/04/2024 9:38 PM GROCERY BAGGER 11/04/2024 9:48 PM GROCERY BAGGER Yogesh AVELAR LAB BLOOD ORDERABLES Final R esult Performing Organization Address [facility]/ZIP Co de Phone Number [address] [place] [address] * (ABNORMAL) Erythrocyte sedimentation rate (11/04/2024 9:38 PM GROCERY BAGGER) [facility] Erythrocyte sedimentation rate 96(H) 1 - 30 mm/hr Blood 11/04/2024 9:38 PM GROCERY BAGGER 11/04/2024 9:48 PM GROCERY BAGGER Yogesh AVELAR LAB BLOOD ORDERABLES Final R esult Performing Organization Address [facility] Co de Phone Number [address] [address] * (ABNORMAL) CRP (acute phase) (11/04/2024 9:38 PM GROCERY BAGGER) [facility] CRP 190.0(H) <=10.0 mg/L Blood 11/04/2024 9:38 PM GROCERY BAGGER 11/04/2024 9:48 PM GROCERY BAGGER Yogesh AVELAR LAB BLOOD ORDERABLES Final R esult Performing Organization Address [facility] Co de Phone Number [address] [address] * (ABNORMAL) Comprehensive metabolic panel (11/04/2024 9:38 PM GROCERY BAGGER) [facility] Sodium 133(L) 135 - 145 mmol/L Potassium, pl 3.1(L) 3.3 - 4.9 mmol/L [facility] Chloride 96(L) 97 - 110 mmol/L [facility] CO2 19(L) 22 - 32 mmol/L [facility] Anion gap 18(H) 2 - 15 mmol/L [facility] BUN 25 6 - 25 mg/dL [facility] Creatinine 0.89 0.60 - 1.10 mg/dL [facility] Glucose 141 70 - 199 mg/dL [facility] Comment: Interpretive Data Fasting glucose >/= [...] 2022. Calcium 9.1 8.5 - 10.3 mg/dL [facility] Bilirubin, total 0.6 0.1 - 1.2 mg/dL [facility] Protein, pl 7.3 6.5 - 8.5 g/dL [facility] Albumin 3.2(L) 3.5 - 5.0 g/dL [facility] Alk phos 66 40 - 130 Units/L [facility] ALT 8 7 - 45 Units/L [facility] AST 13 10 - 45 Units/L [facility] Blood 11/04/2024 9:38 PM GROCERY BAGGER 11/04/2024 9:48 PM GROCERY BAGGER Ygoesh AVELAR LAB BLOOD ORDERABLES Final R esult [facility] [address] [facility] Department [place] [address] * Imaging Lumbar/Sacral Selective Nerve Root INJ (TFE) Bilateral (99685) (10/30/2024 9:36 AM GROCERY BAGGER) Narrative IFEOMA_ANDERSON_CAMACHOB_MHE - 10/30/2024 11:36 AM GROCERY BAGGER The images from this study are not interpreted by Radiology. Please refer to the physician's procedure / OR operative note. us Valerie Rosado MD IMG PAIN MGMT PROCEDURES Final R esult RAD_CLARIO_MHB_MHE * XR Pelvis 1 or 2 Views (10/23/2024 12:48 PM GROCERY BAGGER) Anatomical Region Laterality Modality Body, Pelvis N/A Computed Radiogr aphy 10/23/2024 6:56 PM GROCERY BAGGER Narrative 10/23/2024 7:04 PM GROCERY BAGGER EXAM DESCRIPTION: XR SPINE LUMBAR 4 OR [...] by Rod Allan M.D. T: Report ID: [id number] Reading Location: [id number] Procedure Note Rod Allan MD - 10/23/2024 [...] by Rod Allan M.D. T: Report ID: [id number] Reading Location: [place] [address] Valerie Rosado MD IM XR PROCEDURES Final Result * X-ray lumbar spine complete 4+ views (10/23/2024 12:48 PM GROCERY BAGGER) Anatomical Region Laterality Modality Spine N/A Computed Radiogr aphy 10/23/2024 6:56 PM GROCERY BAGGER Narrative 10/23/2024 7:04 PM GROCERY BAGGER EXAM DESCRIPTION: XR SPINE LUMBAR 4 OR [...] by Rod Allan M.D. T: Report ID: [id number] Reading Location: [place] [address] Procedure Note Rod Allan MD - 10/23/2024 [...] by Rod Allan M.D. T: Report ID: [id number] Reading Location: [place] [address] Valerie Rosado MD IMG XR PROCEDURES Final Result * X-ray thoracic spine 3 views (10/23/2024 12:48 PM GROCERY BAGGER) Anatomical Region Laterality Modality Spine N/A Computed Radiogr aphy 10/23/2024 6:56 PM GROCERY BAGGER Narrative 10/23/2024 7:04 PM GROCERY BAGGER EXAM DESCRIPTION: XR SPINE LUMBAR 4 OR [...] by Rod Allan M.D. T: Report ID: [id number] Reading Location: [id number] Procedure Note Rod Allan MD - 10/23/2024 [...] by Rod Allan M.D. T: Report ID: [id number] Reading Location: [id number] Valerie Rosado MD IMG XR PROCEDURES Final Result * XR Tibia Fibula Right 2 Views (09/30/2024 1:35 PM GROCERY BAGGER) Anatomical Region Laterality Modality Lower Extremities, Lower Leg Right Com puted Radiography 09/30/2024 3:15 PM GROCERY BAGGER Narrative 09/30/2024 3:26 PM GROCERY BAGGER EXAM DESCRIPTION: XR TIBIA FIBULA RIGHT2 VIEWS [...] signed by Rod AZUL T: Report ID: [id number] Reading Location: [id number] Procedure Note Rod Devlin MD - 09/30/2024 [...] signed by Rod AZUL T: Report ID: [id number] Reading Location: [place] [address] Carlos Leggett MD IMG XR PROCEDURES Final Result * eGFR (09/30/2024 7:48 AM GROCERY BAGGER) eGFR 86 >=60 mL/min/1. 73 m2 Comment: [...] last reviewed 2021. Blood 09/30/2024 7:48 AM GROCERY BAGGER 09/30/2024 8:30 AM GROCERY BAGGER Carlos Leggett MD LAB BLOOD ORDERABLES Fi nal Result [facility] [address] [facility] Department [place] [address] * Basic metabolic panel (09/30/2024 7:48 AM GROCERY BAGGER) Sodium 136 135 - 145 mmol/L Potassium, pl 3.8 3.3 - 4.9 mmol/L [facility] Chloride 99 97 - 110 mmol/L [facility] CO2 24 22 - 32 mmol/L [facility] Anion gap 13 2 - 15 mmol/L [facility] BUN 23 6 - 25 mg/dL [facility] Creatinine 0.73 0.60 - 1.10 mg/dL [facility] Glucose 133 70 - 199 mg/dL [facility] Comment: Interpretive Data Fasting glucose >/= [...] 2022. Calcium 9.1 8.5 - 10.3 mg/dL [facility] Blood 09/30/2024 7:48 AM GROCERY BAGGER 09/30/2024 8:30 AM GROCERY BAGGER Carlos Leggett MD LAB BLOOD ORDERABLES Fi nal Result Performing Organization Address [facility]/ZIP Co de Phone Number [facility] [address] [facility] Department [place] [address] * MO Fluoroscopy < 1 Hour (09/29/2024 12:45 PM GROCERY BAGGER) Narrative IFEOMA_GASPERANIL_MHB_MHE - 09/29/2024 2:07 PM GROCERY BAGGER The images from this study are not interpreted by Radiology. Please refer to the physician's procedure / OR operative note. Valerie Rosado MD IMG FLUOROSCOPY PROCEDURES Final Result Performing Organization Address City/[facility]/ZIP Co de Phone Number RAD_CLARIO_[email or web address] * US VEIN DUPLEX LOWER EXTREMITY RIGHT LIMITED, UNILATERAL (09/28/2024 11:34 AM GROCERY BAGGER) Anatomical Region Laterality Modality Vascular Right Ultrasound 09/28/2024 Narrative 09/30/2024 7:13 AM GROCERY BAGGER Amphion Job ID: [id number] Amphion Document ID: [id number] Dictated date/time: [id number] LOWER EXTREMITY VENOUS DUPLEX REASON FOR EXAM Leg pain. FINDINGS Veins throughout the right lower extremity show spontaneous and phasic flow with normal augmentation. All veins are competent and compressible. Left common femoral vein from flow and compressibility as well. OVERALL IMPRESSION Negative for DVT right lower extremity and left common femoral vein. Job ID/Internal Job ID: [id number] Gabino Joaquin MD IMG US PROCEDURES Final Re sult * eGFR (09/26/2024 4:44 AM GROCERY BAGGER) eGFR 78 >=60 mL/min/1. 73 m2 Comment: [...] last reviewed 2021. Blood 09/26/2024 4:44 AM GROCERY BAGGER 09/26/2024 4:50 AM GROCERY BAGGER Perry Hammond MD LAB BLOOD ORDERABLES Fin al Result [facility] [address] [facility] Department of Laboratories [place], [place] [id number] * (ABNORMAL) Basic metabolic panel (09/26/2024 4:44 AM GROCERY BAGGER) Sodium 133(L) 135 - 145 mmol/L Potassium, pl 4.1 3.3 - 4.9 mmol/L [facility] Comment:Hemolyzed; Potassium value may be falsely elevated by as much as 1.0 mmol/L. Suggest redraw and reanalysis. Chloride 101 97 - 110 mmol/L [facility] CO2 21(L) 22 - 32 mmol/L [facility] Anion gap 11 2 - 15 mmol/L [facility] BUN 23 6 - 25 mg/dL [facility] Creatinine 0.79 0.60 - 1.10 mg/dL [facility] Glucose 124 70 - 199 mg/dL [facility] Comment: Interpretive Data Fasting glucose >/= [...] 2022. Calcium 9.2 8.5 - 10.3 mg/dL [facility] Blood 09/26/2024 4:44 AM GROCERY BAGGER 09/26/2024 4:50 AM GROCERY BAGGER Perry Hammond MD LAB BLOOD ORDERABLES Fin al Result [facility] [address] [facility] Department [place] [address] * eGFR (09/25/2024 3:50 PM GROCERY BAGGER) [facility] eGFR >90 >=60 mL/min/1. 73 m2 Comment: [...] last reviewed 2021. Blood 09/25/2024 3:50 PM GROCERY BAGGER 09/25/2024 4:02 PM GROCERY BAGGER Perry Hammond MD LAB BLOOD ORDERABLES Fin al Result Performing Organization Address City/[facility] Co de Phone Number [address] [place] [address] * Magnesium (09/25/2024 3:50 PM GROCERY BAGGER) [facility] Magnesium 1.7 1.4 - 2.5 mg/dL Blood 09/25/2024 3:50 PM GROCERY BAGGER 09/25/2024 4:02 PM GROCERY BAGGER Perry Hammond MD LAB BLOOD ORDERABLES Fin al Result Performing Organization Address [facility] Co de Phone Number [address] [address] * Basic metabolic panel (09/25/2024 3:50 PM GROCERY BAGGER) Pathologist [facility] Sodium 138 135 - 145 mmol/L Potassium, pl 3.7 3.3 - 4.9 mmol/L [facility] Comment:Delta - Results Revi ewed Chloride 100 97 - 110 mmol/L [facility] CO2 25 22 - 32 mmol/L [facility] Anion gap 13 2 - 15 mmol/L [facility] BUN 24 6 - 25 mg/dL [facility] Creatinine 0.67 0.60 - 1.10 mg/dL [facility] Glucose 136 70 - 199 mg/dL [facility] Comment: Interpretive Data Fasting glucose >/= [...] 2022. Calcium 10.1 8.5 - 10.3 mg/dL [facility] Blood 09/25/2024 3:50 PM GROCERY BAGGER 09/25/2024 4:02 PM GROCERY BAGGER us Perry Hammond MD LAB BLOOD ORDERABLES Fin al Result [facility] [address] [facility] Department [place] [address] * (ABNORMAL) Urinalysis reflex to microscopic and culture Urine (09/25/2024 5:49 AM GROCERY BAGGER) Color, ur Yellow Yellow Clarity, ur Clear Clear [facility] Specific gravity, ur 1.029 1.003 - 1.030 [facility] pH, urine 5.5 [facility] Comment: Interpretive Data U rine pH is affected by diet, medications, systemic acid-base disturbances, and renal tubular function. pH may affect urinary stone formation. For example, urine pH below 6.0 may help reduce the tendency for calcium phosphate stones and pH greater than 6.0 may reduce the tendency for uric acid stone formation. Source: [facility] Current Interpretive Data was last revised on 2017 Protein, ur ql 1+(A) Negative [facility] Glucose, ur ql Negative Negative [facility] Ketones, ur Trace Negative [facility] Bilirubin, ur Negative Negative [facility] Blood, ur Negative Negative [facility] Urobilinogen, ur <2.0 <2.0 mg/dL [facility] Nitrite, ur Negative Negative [facility] Leukocyte esterase, ur 1+(A) Negative [facility] UA reflex comment Reflex to microscopic UA will be performed. [facility] Urine 09/25/2024 5:49 AM GROCERY BAGGER 09/25/2024 5:52 AM GROCERY BAGGER Perry Hammond MD LAB MICROBIOLOGY - GENER AL ORDERABLES Final Result Performing Organization Address [facility] de Phone Number [facility] [address] [place] [address] * (ABNORMAL) Urinalysis, microscopic only (09/25/2024 5:49 AM GROCERY BAGGER) WBC, ur 0-5 0 - 5 /HPF RBC, ur 0-2 0 - 2 /HPF [facility] Epithelial cells, squamous, ur 1-5 0 - 5 /HPF [facility] Mucous, ur Present(A) [facility] Hyaline casts, ur 6-10 0 - 10 /LPF [facility] Culture Reflex Comment Reflex conditions for urine culture (WBC >10) not met. [facility] Urine 09/25/2024 5:49 AM GROCERY BAGGER 09/25/2024 5:52 AM GROCERY BAGGER Perry Hammond MD LAB URINE ORDERABLES Fin al Result Performing Organization Address [facility] de Phone Number NIKOLAI [address] [address] * CT Lumbar Spine WO Contrast (09/25/2024 4:05 AM GROCERY BAGGER) Anatomical Region Laterality Modality Spine N/A Computed Tomogra phy 09/25/2024 4:09 AM GROCERY BAGGER Narrative 09/25/2024 4:14 AM GROCERY BAGGER EXAM DESCRIPTION: CT LUMBAR SPINE WO CONTRAST [...] crowded by disc material and spurring. L2-3: [id number] circumferential bulging is seen. The canal appears [...] 4:14 AM - Electronically signed by Chato SIBLEY T: Report ID: [id number] Reading Location: [place] [address] Procedure Note Chato Hart MD - 09/25/2024 [...] arecrowded by disc material and spurring. L2-3: [id number] circumferential bulging is seen. The canalappears to [...] - Electronically signed by Chato Hart M.D. KH T: Report ID: [id number] Reading Location: [place] [address] us Ana AVELAR IMG CT PROCEDURES Final Result * (ABNORMAL) Potassium (09/25/2024 3:37 AM GROCERY BAGGER) Potassium, pl 2.8(L) 3.3 - 4.9 mmol/L Blood 09/25/2024 3:37 AM GROCERY BAGGER 09/25/2024 3:43 AM GROCERY BAGGER us Ana Chambers PA LAB BLOOD ORDERABLES Final Resul t Performing Organization Address [facility] de Phone Number [address] [place] [address] * Phosphorus (09/25/2024 3:37 AM GROCERY BAGGER) Phosphorus, pl 4.0 2.3 - 4.5 mg/dL Blood 09/25/2024 3:37 AM GROCERY BAGGER 09/25/2024 3:43 AM GROCERY BAGGER Ana Chambers PA LAB BLOOD ORDERABLES Final Resul t Performing Organization Address [facility] de Phone Number [address] [place] [address] * (ABNORMAL) Magnesium (09/25/2024 3:37 AM GROCERY BAGGER) Magnesium 1.1(L) 1.4 - 2.5 mg/dL Blood 09/25/2024 3:37 AM GROCERY BAGGER 09/25/2024 3:43 AM GROCERY BAGGER us Ana Trish PA LAB BLOOD ORDERABLES Final Resul t Performing Organization Address [facility] Co de Phone Number [facility] [address] Department [place] [address] * eGFR (09/25/2024 1:59 AM GROCERY BAGGER) eGFR 74 >=60 mL/min/1. 73 m2 Comment: [...] last reviewed 2021. Blood 09/25/2024 1:59 AM GROCERY BAGGER 09/25/2024 2:03 AM GROCERY BAGGER us Ana AVELAR LAB BLOOD ORDERABLES Final Resul t Performing Organization Address [facility] Co de Phone Number [facility] [address] Department [place] [address] * (ABNORMAL) Basic metabolic panel (09/25/2024 1:59 AM GROCERY BAGGER) Pathologist [facility] Sodium 137 135 - 145 mmol/L Potassium, pl 2.8(L) 3.3 - 4.9 mmol/L [facility] Comment:Hemolyzed; Potassium value may be falsely elevated by as much as 1.0 mmol/L. Suggest redraw and reanalysis. Chloride 97 97 - 110 mmol/L [facility] CO2 23 22 - 32 mmol/L [facility] Anion gap 17(H) 2 - 15 mmol/L [facility] BUN 26(H) 6 - 25 mg/dL [facility] Creatinine 0.83 0.60 - 1.10 mg/dL [facility] Glucose 139 70 - 199 mg/dL [facility] Comment: Interpretive Data Fasting glucose >/= [...] 2022. Calcium 10.6(H) 8.5 - 10.3 mg/dL [facility] Blood 09/25/2024 1:59 AM GROCERY BAGGER 09/25/2024 2:03 AM GROCERY BAGGER us Ana AVELAR LAB BLOOD ORDERABLES Final Resul t [facility] [address] [facility] [place] [address] * XR Spine Lumbar 2 or 3 Views (09/24/2024 8:56 PM GROCERY BAGGER) Anatomical Region Laterality Modality Spine N/A Computed Radiogr aphy 09/24/2024 9:04 PM GROCERY BAGGER Narrative 09/24/2024 9:07 PM GROCERY BAGGER EXAM DESCRIPTION: XR SPINE LUMBAR 2 OR [...] Jose Navarro M.D. AG T: Report ID: [id number] Reading Location: [id number] Procedure Note Jose Navarro MD - 09/24/2024 [...] Jose Navarro M.D. AG T: Report ID: [id number] Reading Location: [id number] Ana AVELAR IMG XR PROCEDURES Final Result * eGFR (09/24/2024 6:59 PM GROCERY BAGGER) eGFR >90 >=60 mL/min/1. 73 m2 Comment: [...] last reviewed 2021. Blood 09/24/2024 6:59 PM GROCERY BAGGER 09/24/2024 7:01 PM GROCERY BAGGER Perry Hammond MD LAB BLOOD ORDERABLES Fin al Result [facility] [address] [facility] Department [place] [address] * Differential, auto (09/24/2024 6:59 PM GROCERY BAGGER) Neutrophil abs 4.2 1.5 - 6.5 K/cumm Imm gran abs 0.0 0.0 - 0.1 K/cumm [facility] Lymphocyte abs 2.9 0.8 - 3.3 K/cumm [facility] Monocyte abs 0.8 0.2 - 0.8 K/cumm [facility] Eosinophil abs 0.2 0.0 - 0.5 K/cumm [facility] Basophil abs 0.0 0.0 - 0.1 K/cumm [facility] Neutrophil pct 51.4 % [facility] Comment: Interpretive Data Percent cell count reference ranges are not reported, since discordance with absolute values may lead to misinterpretation of CBC data. Current Interpretive Data was last revised on 2017. Imm gran pct 0.2 % [facility] Comment: Interpretive Data Percent cell count reference ranges are not reported, since discordance with absolute values may lead to misinterpretation of CBC data. Current Interpretive Data was last revised on 2017. Lymphocyte pct 35.5 % [facility] Comment: Interpretive Data Percent cell count reference ranges are not reported, since discordance with absolute values may lead to misinterpretation of CBC data. Current Interpretive Data was last revised on 2017. Monocyte pct 10.2 % [facility] Comment: Interpretive Data Percent cell count reference ranges are not reported, since discordance with absolute values may lead to misinterpretation of CBC data. Current Interpretive Data was last revised on 2017. Eosinophil pct 2.3 % [facility] Comment: Interpretive Data Percent cell count reference ranges are not reported, since discordance with absolute values may lead to misinterpretation of CBC data. Current Interpretive Data was last revised on 2017. Basophil pct 0.4 % [facility] Comment: Interpretive Data Percent cell count reference ranges are not reported, since discordance with absolute values may lead to misinterpretation of CBC data. Current Interpretive Data was last revised on 2017. Blood 09/24/2024 6:59 PM GROCERY BAGGER 09/24/2024 7:01 PM GROCERY BAGGER us Perry Hammond MD LAB BLOOD ORDERABLES Fin al Result [facility] SAUER [address] [facility] Department [place] [address] * (ABNORMAL) CBC with auto differential (09/24/2024 6:59 PM GROCERY BAGGER) WBC 8.2 3.8 - 9.9 K/cumm Hgb 15.3 11.9 - 15.5 g/dL [facility] Hct 46.7(H) 35.6 - 45.5 % [facility] Plt 186 150 - 400 K/cumm [facility] MPV 10.5 9.1 - 12.3 fL [facility] RBC 4.65 3.90 - 5.20 M/cumm [facility] MCV 100.4(H) 81.3 - 96.4 fL [facility] MCH 32.9 27.1 - 33.3 pg [facility] MCHC 32.8 32.3 - 35.7 g/dL [facility] RDW CV 13.7 11.1 - 14.9 % [facility] RDW SD 50.5(H) 35.7 - 48.1 fL [facility] NRBC abs 0.00 0.00 - 0.01 K/cumm [facility] Blood 09/24/2024 6:59 PM GROCERY BAGGER 09/24/2024 7:01 PM GROCERY BAGGER us Perry Hammond MD LAB BLOOD ORDERABLES Fin al Result [facility] [address] [facility] Department [place] [address] * (ABNORMAL) Comprehensive metabolic panel (09/24/2024 6:59 PM GROCERY BAGGER) [facility] Sodium 141 135 - 145 mmol/L Potassium, pl See Comment 3.3 - 4.9 [facility] Comment:Credited; Hemolyzed Specimen Chloride 99 97 - 110 mmol/L [facility] CO2 25 22 - 32 mmol/L [facility] Anion gap 17(H) 2 - 15 mmol/L [facility] BUN 23 6 - 25 mg/dL [facility] Creatinine 0.66 0.60 - 1.10 mg/dL [facility] Glucose 135 70 - 199 mg/dL [facility] Comment: Interpretive Data Fasting glucose >/= [...] 2022. Calcium 11.0(H) 8.5 - 10.3 mg/dL [facility] Bilirubin, total 0.6 0.1 - 1.2 mg/dL [facility] Protein, pl 7.7 6.5 - 8.5 g/dL [facility] Albumin 4.2 3.5 - 5.0 g/dL [facility] Alk phos 57 40 - 130 Units/L [facility] ALT 22 7 - 45 Units/L [facility] AST See Comment 10 45 [facility] Comment:Credited; Hemolyzed Specimen Blood 09/24/2024 6:59 PM GROCERY BAGGER 09/24/2024 7:01 PM GROCERY BAGGER Perry Hammond MD LAB BLOOD ORDERABLES Fin al Result [facility] [address] [facility] [place] [address] * ECG 12 lead (09/24/2024 6:46 PM GROCERY BAGGER) Ventricular Rate EKG/Min 112 BPM [facility] Atrial Rate 112 BPM [facility] DC-Interval (MSEC) 138 ms [facility] QRS-Interval (MSEC) 92 ms [facility] QT-Interval (MSEC) 344 ms [facility] QTc 469 ms [facility] P [place] 42 degrees [facility] R [place] -72 degrees [facility] T [place] 100 degrees [facility] Diagnosis Sinus tachycardia Incomplete right bundle branch [...] WANG M.D. ([id number]) on 09/24/2024 11:38:27 PM [facility] 09/24/2024 6:46 PM GROCERY BAGGER 09/24/2024 11:38 PM GROCERY BAGGER Perry Hammond MD ECG ORDERABLES Final Re sult [facility] * Dexa Axial Skeleton Bone Density 1 or 2 Site (12/13/2023 2:29 PM CDT) Anatomical Region Laterality Modality Body N/A Mammography 12/13/2023 3:46 PM CDT Narrative 12/13/2023 3:47 PM CDT EXAM DESCRIPTION: DEXA AXIAL SKELETON BONE DENSITY 1 OR MORE SITES REASON FOR STUDY: 73 y/o year old F with given history of: Post menopausal status. 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 TW: TW Report ID: [id number] Reading Location: [id number] Procedure Note Mara Mcelroy MD - 12/13/2023 EXAM DESCRIPTION: DEXA AXIAL SKELETON BONE DENSITY 1 OR MORE SITES REASON FOR STUDY: 73 y/o year old F with given history of: Post menopausal status. 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 TW: TW Report ID: [id number] Reading Location: [place] [address] Purnima AVELAR IMG DXA PROCEDURES Final R [...] age 39, based on guidelines of the [place] [employer] (ACR Practice Parameter for the Performance of Screening and Diagnostic Mammography) and [place] [employer]. For women [...] * Hepatitis panel, acute (10/18/2020 11:19 AM GROCERY BAGGER) Hep A IgM NON-REACTI VE NON-REACT NICHOLAS [facility] Comment: For additional information, please refer to http://Elysia.Imcompany/faq/HMY633 (This link is being provided for informational/ [...] a test for HCV RNA (test code 18129) is suggested. For additional information please refer to http://education.Kenguru.Arts & Analytics/faq/HLE49i5 (This link is being provided for informational/ educational purposes only.) 10/18/2020 11:1 9 AM GROCERY BAGGER 10/18/2020 11:22 AM GROCERY BAGGER us Anika AVELAR LAB MICROBIOLOGY - GE NERAL ORDERABLES Final Result [facility] [facility] [address] [address] [facility] [place] [address] * HM COLONOSCOPY (10/07/2020) us Historical Provider HEALTH MAINTENANCE Final Result from Last 3 Months or Most Recently Relevant to Health Maintenance Insurance MEDICARE HMO [employer] MEDICARE HMO [employer] MEDICARE HMO [employer] MEDICARE HMO , [place] [id number] Advance Directives For more information, please contact: [phone] Documents on File Type Date Recorded 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
--- OUTSIDE RECORDS SUMMARY | 2024-11-16 21:35 | XMS_ITS | Continuity of Care Document ---
Author Organization [facility] Address [address] [place] [id number] Insurance Providers Payer Plan Claims Address Claims Phone Policy Number Group Number Relation Employer Guarantor Name Guarantor Guarantor Address Guarantor Phone [employer] [address] [address], [place] [address] tel:[phone] Other Unknown Unknown [address] [place], [place] [id number] [employer] [address] [address], [place] [address] tel:[phone] Other Unknown Unknown [address] [place], [place] [id number] Problems Condition ICD9 code ICD10 code SNOMED code Start Date End Date S tatus Chronic kidney disease, stage 3 unspecified N18.30 996935346 01/26/2019 Active CHRONIC KIDNEY DISEASE STAGE III (MODERATE) 585.3 365238291 01/26/2019 Acti ve Chronic kidney disease, stage 3 (moderate) N18.3 831492014 01/26/2019 Active Chronic kidney disease, stage 3 711946484 01/26/2019 Active Hypertensive chronic kidney disease with stage 1 through stage 4 chronic kidney disease, or unspecified chronic kidney disease I12.9 [id number] 01/26/2019 Activ e HYPERTENSIVE KIDNEY DISEASE BENIGN WITH CHRONIC KIDNEY DISEASE STAGE I THROUGH STAGE IV OR UNSPECIFIED 403.10 [id number] 01/26/2019 Ac tive Stage 3 chronic kidney disease due to benign hypertension 797812949098735 01/26/2019 Active Mixed hyperlipidemia E78.2 779334449 01/26/2019 Active Mixed hyperlipidemia 884553990 01/26/2019 Active MIXED HYPERLIPIDEMIA 272.2 557743633 01/26/2019 Active Hypothyroidism, unspecified E03.9 536250450 01/26/2019 Active Acquired hypothyroidism 583278468 01/26/2019 Active UNSPECIFIED ACQUIRED HYPOTHYROIDISM 244.9 918553573 01/26/2019 Active Personal history of pulmonary embolism Z86.711 410345390 01/26/2019 Active PERSONAL HISTORY OF PULMONARY EMBOLISM V12.55 345407520 01/26/2019 Active History of pulmonary embolism 782290108 01/26/2019 Active Old myocardial infarction I25.2 639044045 01/26/2019 Active OLD MYOCARDIAL INFARCTION 412 653241428 01/26/2019 Active History of [place] (myocardial infarction) 023091173 01/26/2019 Active Gastro-esophageal reflux disease without esophagitis K21.9 437841821 01/26/2019 Active Gastroesophageal reflux disease without esophagitis 863607881 01/26/2019 Active ESOPHAGEAL REFLUX 530.81 239256153 01/26/2019 A ctive Other specified postprocedural states Z98.890 709617331696304 01/26/2019 Active Personal history of other diseases of the circulatory system Z86.79 277893758997177 01/26/2019 A ctive PERSONAL HISTORY OF OTHER DISEASES OF CIRCULATORY SYSTEM NOT ELSEWHERE CLASSIFIED V12.59 879054533065522 01/26/2019 Active History of endometrial ablation 174069378932232 01/26/2019 Active Idiopathic chronic gout, multiple sites, 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 49387842 01/26/2019 Ac tive CHRONIC GOUTY 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 (TOPHI) 274.02 59061551 01/26/2019 Active Chronic gout of multiple sites 19240192 01/26/2019 Active Chronic gout, unspecified, without tophus (tophi) M1A.9XX0 44354336 01/26/2019 Active Hyperglycemia, unspecified R73.9 27641655 01/26/2019 Active Other abnormal glucose R73.09 56812098 01/26/2019 Active OTHER ABNORMAL GLUCOSE 790.29 48172751 01/26/2019 Active Hyperglycemia 35761351 01/26/2019 Active Vitamin D deficiency, unspecified E55.9 65894181 01/26/2019 Active UNSPECIFIED VITAMIN D DEFICIENCY 268.9 75540079 01/26/2019 Active Vitamin D deficiency 70736777 01/26/2019 Active Major depressive disorder, recurrent, moderate F33.1 472719639 01/26/2019 Active MAJOR DEPRESSIVE AFFECTIVE DISORDER RECURRENT EPISODE MODERATE DEGREE 296.32 797156764 01/26/2019 Active Moderate episode of recurrent major depressive disorder 961431318 01/26/2019 Activ e Obstructive sleep apnea (adult) (pediatric) G47.33 23077786 01/27/2019 Active SAPNA on CPAP 14232569 01/27/2019 Active OBSTRUCTIVE SLEEP APNEA (ADULT) (PEDIATRIC) 327.23 77026349 01/27/2019 Active Asymptomatic menopausal state Z78.0 439498982 02/08/2019 Active Menopausal and female climacteric states N95.1 384600048 02/08/2019 Active SYMPTOMATIC MENOPAUSAL OR FEMALE CLIMACTERIC STATES 627.2 169040234 02/08/2019 Active Menopause 352717758 02/08/2019 Active Dizziness and giddiness R42 337357614 04/08/2019 Active DIZZINESS AND GIDDINESS 780.4 165589220 04/08/2019 Active Dizziness 036495295 04/08/2019 Active Other specified symptoms and signs involving the circulatory and respiratory systems R09.89 906127280 04/08/2019 Activ e OTHER SYMPTOMS INVOLVING CARDIOVASCULAR SYSTEM 785.9 588877997 04/08/2019 Act nicholas Bruit of left carotid artery 217514849 04/08/2019 Active Systemic lupus erythematosus, unspecified M32.9 797418717 04/18/2019 Active Lupus 904555848 04/18/2019 Active SYSTEMIC LUPUS ERYTHEMATOSUS 710.0 880407380 04/18/2019 Active Systemic lupus erythematosus, organ or system involvement unspecified M32.10 808398701 04/18/2019 Active Unspecified fall, initial encounter W19.XXXA 06/07/2019 Active Fall 06/07/2019 Active UNSPECIFIED ACCIDENTAL FALL E888.9 06/07/2019 Active Other specified abnormal immunological findings in serum R76.8 06/07/2019 Active OTHER AND UNSPECIFIED NONSPECIFIC IMMUNOLOGICAL FINDINGS 795.79 06/07/2019 Ac tive Positive YINA (antinuclear antibody) 06/07/2019 Ac tive Hypomagnesemia E83.42 07551493150032020 Acti ve DISORDERS OF MAGNESIUM METABOLISM 275.2 113782197 10/18/2019 Active Hypomagnesemia 142870880 10/18/2019 Acti ve Encounter for screening mammogram for malignant neoplasm of breast Z12.31 932564000 10/25/2019 Active OTHER SCREENING MAMMOGRAM V76.12 608293267 10/25/2019 Active Breast cancer screening by mammogram 357275447 10/25/2019 Ac tive Other fatigue R53.83 03875014 10/25/2019 Active Other fatigue 20045609 10/25/2019 Active OTHER MALAISE AND FATIGUE 780.79 00690094 10/25/2019 Active Pain in unspecified joint M25.50 83323302 07/27/2020 Active Arthralgia 84474060 07/27/2020 Active PAIN IN JOINT SITE UNSPECIFIED 719.40 54012445 07/27/2020 Active Anemia, unspecified D64.9 171596359 11/27/2020 Active Anemia 213331342 11/27/2020 Active ANEMIA UNSPECIFIED 285.9 250474245 11/27/2020 Active Obesity, unspecified E66.9 650504436 11/29/2020 Active OBESITY UNSPECIFIED 278.00 517821004 11/29/2020 Active Obesity (BMI 30-39.9) 356537675 11/29/2020 Active Body mass index (BMI) 34.0-34.9, adult Z68.34 999284040 11/29/2020 Active BODY MASS INDEX BETWEEN 34.0-34.9 ADULT V85.34 705772449 11/29/2020 Active Encounter for general adult medical examination without abnormal findings Z00.00 267923496 10/18/2019 Active Annual physical exam 104050879 10/18/2019 Active ROUTINE GENERAL MEDICAL EXAMINATION AT A HEALTH CARE FACILITY V70.0 331043437 10/18/2019 Ac tive Other snf (current) drug therapy Z79.899 227240783 12/30/2020 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 376348940 12/30/2020 Activ e LONG-TERM (CURRENT) USE OF OTHER MEDICATIONS V58.69 487930185 12/30/2020 Active Obesity, unspecified E66.9 061490986 01/12/2021 Active OBESITY UNSPECIFIED 278.00 649883500 01/12/2021 Active Obesity (BMI 30-39.9) 555441623 01/12/2021 Active Body mass index (BMI) 33.0-33.9, adult Z68.33 382230146 01/12/2021 Active BODY MASS INDEX BETWEEN 33.0-33.9 ADULT V85.33 711433535 01/12/2021 Active Frequency of micturition R35.0 517898271 01/14/2021 Active URINARY FREQUENCY 788.41 102353530 01/14/2021 A ctive Frequency of urination 939862351 01/14/2021 Active Acute cystitis without hematuria N30.00 01/16/2021 Active Acute cystitis without hematuria 01/16/2021 Active ACUTE CYSTITIS 595.0 01/16/2021 Activ e Results Test Value / Unit Interpretation Reference Ran Urine culture Urine, clean v oided[1126] Collected: 01/12/2021 07:35 PM Lab Interpretation [23279-5] Abnormal Normal unknown 4 Normal POCT urinalysis dipstick[160 0] Collected: 01/12/2021 07:36 PM Color, Urine, POC Yellow Normal Clarity, ur, POC Cloudy A Clear Glucose, ur, POC Negative Normal Negative mg /dL Bilirubin, ur, POC Negative Normal Negative, Small, Moderate, Large Ketones, ur, POC Negative Normal Negative Specific [place], POC 1.02 Normal 1.005 - 1.03 Blood, ur, POC Non-hemolyzed, trace A Negative pH, ur, POC 5.5 Normal 5 - 8 Protein, ur, POC 2+ A Negative Urobilinogen, urine, POC 0.2 mg/dL Normal 0.2 - 1 mg/dL Nitrite, ur, POC Negative Normal Negative Leukocytes, ur, POC 2+ A Negative Lot Number [id number] Normal Lab Interpretation [78968-5] Abnormal Normal unknown 16 Normal Comprehensive metabolic pane l[682] Collected: 01/12/2021 07:41 PM Glucose [2345-7] 103 mg/dL Normal 65 - 139 mg /dL Non-fasting reference interval BUN [3094-0] 23 mg/dL Normal 7 - 25 mg/dL Creatinine [2160-0] 0.88 mg/dL Normal 0.6 - 0. 93 mg/dL For patients >49 years of ag e, the reference limitfor Creatinine is approximately 13% higher for peopleidentified as -Sudanese. eGFR NON-AFR. POLISH [12372-1] 66 Normal >OR = 60 mL/min/1.73m2 EGFR [19993-4] 77 Normal >OR = 60 mL/min/1.73m2 BUN/creat ratio [3097-3] NOT APPLICABLE (calc) Normal 6 - 22 (calc) Sodium [2951-2] 139 mmol/L Normal 135 - 146 mm ol/L Potassium, pl [2823-3] 3.5 mmol/L Normal 3.5 - 5.3 mmol/L Chloride [5-0] 101 mmol/L Normal 98 - 110 m mol/L CO2 [2027-9] 26 mmol/L Normal 20 - 32 mmol/L Calcium [36946-0] 9.6 mg/dL Normal 8.6 - 10.4 mg/dL Protein, sr [2885-2] 7.9 g/dL Normal 6.1 - 8 .1 g/dL Albumin [1751-7] 4.3 g/dL Normal 3.6 - 5.1 g /dL GLOBULIN [18952-0] 3.6 g/dL (calc) Normal 1.9 - 3.7 g/dL (calc) Alb/glob ratio [1759-0] 1.2 (calc) Normal 1 - 2.5 (calc) Bilirubin, total [1974-10] 0.4 mg/dL Normal 0. 2 - 1.2 mg/dL Alk phos [6768-6] 80 U/L Normal 37 - 153 U /L AST [1920-8] 14 U/L Normal 10 - 35 U/L ALT (SGPT) [1742-6] 11 U/L Normal 6 - 29 U /L YAJAIRA See note Normal FASTING:NO, FASTING: NO unknown 16 Normal TSH[906] Collected: 01/12/2021 07:41 PM TSH [3016-3] 1.15 mIU/L Normal 0.4 - 4.5 mIU/L YAJAIRA See note Normal FASTING:NO, FASTING: NO unknown 16 Normal Urine culture[1126] Collected: 01/12/2021 07:41 PM YAJAIRA See note Normal FASTING:NO, FASTING: NO Lab Interpretation [33333-1] Abnormal Normal unknown 4 Normal CBC with auto differential[9 0001] Collected: 01/12/2021 07:41 PM WBC [6690-2] 6.5 Thousand/uL Normal 3.8 - 10.8 Thousand/uL RBC, POC [789-8] 3.89 Million/uL Normal 3.8 - 5. 1 Million/uL Hgb [718-7] 12.3 g/dL Normal 11.7 - 15.5 g/d L Hct [4544-3] 36.2 % Normal 35 - 45 % MCV [787-2] 93.1 fL Normal 80 - 100 fL MCH [785-6] 31.6 pg Normal 27 - 33 pg MCHC [786-4] 34 g/dL Normal 32 - 36 g/dL Rdw [788-0] 12.9 % Normal 11 - 15 % Platelets [777-3] 194 Thousand/uL Normal 140 - 4 00 Thousand/uL MPV [776-5] 11 fL Normal 7.5 - 12.5 fL Neutrophils, abs [751-8] 3809 cells/uL Normal 15 00 - 7800 cells/uL Lymphocytes, abs [731-0] 2093 cells/uL Normal 85 0 - 3900 cells/uL Monocyte abs [742-7] 514 cells/uL Normal 200 - 9 50 cells/uL Eosinophils, abs [711-2] 72 cells/uL Normal 15 - 500 cells/uL Basophils, abs [704-7] 13 cells/uL Normal Neutrophils [770-8] 58.6 % Normal Lymphocyte pct [736-9] 32.2 % Normal Monocytes [5905-5] 7.9 % Normal Eosinophils [713-8] 1.1 % Normal Basophils [706-2] 0.2 % Normal YAJAIRA See note Normal FASTING:NO, FASTING: NO unknown 16 Normal Comprehensive metabolic pane l[682] Collected: 12/30/2020 03:25 PM Glucose [2345-7] 93 mg/dL Normal 65 - 99 mg/ dL Fasting reference interval BUN [3094-0] 17 mg/dL Normal 7 - 25 mg/dL Creatinine [2160-0] 0.88 mg/dL Normal 0.6 - 0. 93 mg/dL For patients >49 years of ag e, the reference limitfor Creatinine is approximately 13% higher for peopleidentified as -Sudanese. eGFR NON-AFR. POLISH [73350-0] 66 Normal >OR = 60 mL/min/1.73m2 EGFR [52869-6] 77 Normal >OR = 60 mL/min/1.73m2 BUN/creat ratio [3097-3] NOT APPLICABLE (calc) Normal 6 - 22 (calc) Sodium [2951-2] 142 mmol/L Normal 135 - 146 mm ol/L Potassium, pl [2823-3] 3.8 mmol/L Normal 3.5 - 5.3 mmol/L Chloride [2074-0] 105 mmol/L Normal 98 - 110 m mol/L CO2 [2028-05] 31 mmol/L Normal 20 - 32 mmol/L Calcium [19080-9] 9.2 mg/dL Normal 8.6 - 10.4 mg/dL Protein, sr [2885-2] 7.4 g/dL Normal 6.1 - 8 .1 g/dL Albumin [175-7] 3.8 g/dL Normal 3.6 - 5.1 g /dL GLOBULIN [97019-8] 3.6 g/dL (calc) Normal 1.9 - 3.7 g/dL (calc) Alb/glob ratio [1759-0] 1.1 (calc) Normal 1 - 2.5 (calc) Bilirubin, total [1974-10] 0.4 mg/dL Normal 0. 2 - 1.2 mg/dL Alk phos [6768-6] 77 U/L Normal 37 - 153 U /L AST [1920-8] 13 U/L Normal 10 - 35 U/L ALT (SGPT) [1742-6] 9 U/L Normal 6 - 29 U /L unknown 16 Normal CRP (acute phase)[946] Collected: 12/30/2020 03:25 PM C-RP [1987-5] 6.3 mg/L Normal 8.0 mg/L unknown 16 Normal C3 complement[952] Collected: 12/30/2020 03:25 PM Complement component C3C [7035-9] 138 mg/dL Normal 83 - 193 mg/dL unknown 16 Normal Erythrocyte sedimentation ra te[1754] Collected: 12/30/2020 03:25 PM Erythrocyte sedimentation ra te [4537-7] 44 mm/h H < OR = 30 mm/h Lab Interpretation [77193-8] Abnormal Normal unknown 16 Normal Protein / creatinine ratio, urine, random[87780] Collected: 12/30/2020 03:25 PM Creatinine, ur [2161-8] 67 mg/dL Normal 20 - 275 mg/dL Protein/creatinine ratio [2890-2] 343 mg/g creat H 21 - 161 mg/g creat Protein/Creatinine Ratio [2890-2] 0.343 mg/mg creat H 0.021 - 0.161 mg/mg creat Protein, ur, quant [2888-6] 23 mg/dL Normal 5 - 24 mg/dL Lab Interpretation [33537-8] Abnormal Normal unknown 16 Normal CBC with auto differential[9 0001] Collected: 12/30/2020 03:25 PM WBC [6690-2] 5.5 Thousand/uL Normal 3.8 - 10.8 Thousand/uL RBC, POC [789-8] 3.78 Million/uL L 3.8 - 5. 1 Million/uL Hgb [718-7] 11.9 g/dL Normal 11.7 - 15.5 g/d L Hct [4544-3] 35.4 % Normal 35 - 45 % MCV [787-2] 93.7 fL Normal 80 - 100 fL MCH [785-6] 31.5 pg Normal 27 - 33 pg MCHC [786-4] 33.6 g/dL Normal 32 - 36 g/dL Rdw [788-0] 13.2 % Normal 11 - 15 % Platelets [777-3] 191 Thousand/uL Normal 140 - 4 00 Thousand/uL MPV [776-5] 10.7 fL Normal 7.5 - 12.5 fL Neutrophils, abs [751-8] 2794 cells/uL Normal 15 00 - 7800 cells/uL Lymphocytes, abs [731-0] 2167 cells/uL Normal 85 0 - 3900 cells/uL Monocyte abs [742-7] 374 cells/uL Normal 200 - 9 50 cells/uL Eosinophils, abs [711-2] 143 cells/uL Normal 15 - 500 cells/uL Basophils, abs [704-7] 22 cells/uL Normal Neutrophils [770-8] 50.8 % Normal Lymphocyte pct [736-9] 39.4 % Normal Monocytes [5905-5] 6.8 % Normal Eosinophils [713-8] 2.6 % Normal Basophils [706-2] 0.4 % Normal Lab Interpretation [15123-0] Abnormal Normal unknown 16 Normal Urinalysis reflex to microsc opic and culture Urine[199608] Collected: 12/30/2020 03:25 PM Color, ur [5778-6] YELLOW Normal YELLOW Appearance, ur [5767-9] CLEAR Normal CHEVY R Specific gravity [5811-5] 1.014 Normal 1. 001 - 1.035 pH, ur [5803-2] 6.5 Normal 5 - 8 Glucose, ur [80496-0] NEGATIVE Normal NEGATI VE Bilirubin, ur [5770-3] NEGATIVE Normal NEGAT NICHOLAS Ketones, ur [2514-8] NEGATIVE Normal NEGATIV E Blood, ur [5794-3] NEGATIVE Normal NEGATIVE Protein, ur, quant [22612-4] NEGATIVE Normal NEGATIVE Nitrites, ur [5802-4] POSITIVE A NEGATI VE Leukocyte esterase, ur [5799-2] 2+ A NEGATIVE WBC, ur [5821-4] 20-40 A < OR = 5 /H PF RBC, ur [88451-5] 0-2 Normal < OR = 2 / HPF Epithelial cells, squamous, ur [01070-5] 0-5 Normal < OR = 5 /HPF Bacteria, ur, quant [5769-5] MODERATE A NONE SEEN /HPF Hyaline cast [5796-8] NONE SEEN Normal NONE S EEN /LPF Lab Interpretation [73072-4] Abnormal Normal unknown 4 Normal Anti-double stranded DNA ant ibodies[117165] Collected: 12/30/2020 03:25 PM DNA (DS) ab [5130-0] 6 H IU/mL IU/mL Interpretation < or = 4 Negative 5-9 Indeterminate >or = 10 Positive Lab Interpretation [27413-4] Abnormal Normal unknown 16 Normal C4 complement[606445] Collected: 12/30/2020 03:25 PM Complement component C4C [4498-2] 23 mg/dL Normal 15 - 57 mg/dL unknown 16 Normal Urine culture Urine, clean v oided[1126] Collected: 01/19/2021 08:07 PM unknown 4 Normal POCT urinalysis dipstick[160 0] Collected: 01/19/2021 08:11 PM Glucose, ur, POC Negative Normal Negative mg /dL Bilirubin, ur, POC Negative Normal Negative, Small, Moderate, Large Ketones, ur, POC Negative Normal Negative Specific [place], POC 1.02 Normal 1.005 - 1.03 Blood, ur, POC Trace A Negative 7.0 pH, ur, POC 7 Normal 5 - 8 Protein, ur, POC Negative Normal Negative Urobilinogen, urine, POC 0.2 mg/dL Normal 0.2 - 1 mg/dL Nitrite, ur, POC Negative Normal Negative Lot Number [id number] Normal Lab Interpretation [11968-3] Abnormal Normal unknown 16 Normal SCAN - RADIOLOGY/IMAGING[[facility] N008] Collected: 11/01/2020 05:38 PM SCAN - RADIOLOGY/IMAGING 7 Normal SCAN - RADIOLOGY/IMAGING[[facility] N008] Collected: 10/25/2020 04:18 PM SCAN - RADIOLOGY/IMAGING 7 Normal [facility] CTD - Miscellaneous Te st[21931] Collected: 10/18/2020 12:00 AM AVISE CTD - Miscellaneous Test 16 Normal Pathology report[399194] Collected: 10/07/2020 12:00 AM Pathology report 16 Normal AVISE CTD - Miscellaneous Te st[51518] Collected: 10/18/2020 12:00 AM AVISE CTD - Miscellaneous Test 16 Normal Pathology report[685542] Collected: 10/07/2020 12:00 AM Pathology report 16 Normal SCAN - RADIOLOGY/IMAGING[[facility] N008] Collected: 10/25/2020 04:18 PM SCAN - RADIOLOGY/IMAGING 7 Normal SCAN - RADIOLOGY/IMAGING 7 Normal TSH[906] Collected: 11/26/2020 03:39 PM TSH [3016-3] 0.43 mIU/L Normal 0.4 - 4.5 mIU/L unknown 16 Normal TB test, quantiferon gold[11 3292] Collected: 11/01/2020 05:58 PM QuantiFERON(R)-TB Gold Plus, 1 Tube [56730-4] NEGATIVE Normal NEGATIVE Negative test result. M. tub erculosis complexinfection unlikely. NIL [60714-4] 0.07 Normal IU/mL MITOGEN-NIL [39748-0] 9.09 Normal IU/mL TB1-NIL [70656-5] 0.01 Normal IU/mL TB2-NIL [29608-5] 0 Normal IU/mL The Nil tube value reflects the background interferongamma immune response of the patient's blood sample.This value has been subtracted from the patient'sdisplayed TB and Mitogen results.Lower than expected results with the Mitogen tubeprevent false-negative Quantiferon readings bydetecting a patient with a potential immunesuppressive condition and/or suboptimal pre-analyticalspecimen handling.The TB1 Antigen tube is coated with theM. tuberculosis-specific antigens designed to elicitresponses from TB antigen primed CD4+ helperT-lymphocytes.The TB2 Antigen tube is coated with theM. tuberculosis-specific antigens designed to elicitresponses from TB antigen primed CD4+ helper and CD8+cytotoxic T-lymphocytes.For additional information, please refer [email or web address](This link is being provided for informational/educational purposes only.) unknown 16 Normal Comprehensive metabolic pane l[682] Collected: 10/18/2020 05:19 PM Glucose [2345-7] 102 mg/dL H 65 - 99 mg/ dL Fasting reference intervalFor someone without known diabetes, a glucose valuebetween 100 and 125 mg/dL is consistent withprediabetes and should be confirmed with afollow-up test. BUN [3094-0] 19 mg/dL Normal 7 - 25 mg/dL Creatinine [2160-0] 0.89 mg/dL Normal 0.6 - 0. 93 mg/dL For patients >49 years of ag e, the reference limitfor Creatinine is approximately 13% higher for peopleidentified as -Sudanese. eGFR NON-AFR. POLISH [46574-2] 66 Normal >OR = 60 mL/min/1.73m2 EGFR [28586-6] 76 Normal >OR = 60 mL/min/1.73m2 BUN/creat ratio [3097-3] NOT APPLICABLE (calc) Normal 6 - 22 (calc) Sodium [2951-2] 141 mmol/L Normal 135 - 146 mm ol/L Potassium, pl [2823-3] 4.5 mmol/L Normal 3.5 - 5.3 mmol/L Chloride [0] 103 mmol/L Normal 98 - 110 m mol/L CO2 [2028-05] 30 mmol/L Normal 20 - 32 mmol/L Calcium [60139-9] 10.2 mg/dL Normal 8.6 - 10.4 mg/dL Protein, sr [2884-2] 8 g/dL Normal 6.1 - 8 .1 g/dL Albumin [1751-03] 4.1 g/dL Normal 3.6 - 5.1 g /dL GLOBULIN [62328-8] 3.9 g/dL (calc) H 1.9 - 3.7 g/dL (calc) Alb/glob ratio [] 1.1 (calc) Normal 1 - 2.5 (calc) Bilirubin, total [1974-10] 0.4 mg/dL Normal 0. 2 - 1.2 mg/dL Alk phos [68-6] 70 U/L Normal 37 - 153 U /L AST [1920-04] 15 U/L Normal 10 - 35 U/L ALT (SGPT) [6] 11 U/L Normal 6 - 29 U /L Lab Interpretation [60996-9] Abnormal Normal unknown 16 Normal CRP (acute phase)[946] Collected: 10/18/2020 05:19 PM C-RP [1988-01] 1.5 mg/L Normal 8.0 mg/L unknown 16 Normal Erythrocyte sedimentation ra te[1754] Collected: 10/18/2020 05:19 PM Erythrocyte sedimentation ra te [4537-7] 51 mm/h H < OR = 30 mm/h Lab Interpretation [60706-8] Abnormal Normal unknown 16 Normal Lupus anticoagulant[7628] Collected: 10/18/2020 05:19 PM Lupus anticoagulant [52454-9] see note Normal A Lupus Anticoagulant is not detected.Reference Range: Not DetectedFor additional information, please refer [email or web address](This link is being provided for informational/educational purposes only.) This interpretation is based on the following testresults. Lupus anticoagulant, PTT [33128-0] 33 Normal =40 sec DRVVT screen [5563-2] 28 Normal =45 se c DRVVT MIX INTERPRETATION [80352-0] Not Indicated Lidia l unknown 16 Normal Hepatitis panel, acute[30963 ] Collected: 10/18/2020 05:19 PM Hep A IgM [01365-3] NON-REACTIVE Normal NON-REAC TIVE For additional information, please refer [email or web address](This link is being provided for informational/educational purposes only.) HepBsAg [5196-1] NON-REACTIVE Normal NON-REACTIV E Hep B core IgM [53852-8] NON-REACTIVE Normal NON -REACTIVE Hep C Ab [67091-2] NON-REACTIVE Normal NON-REACT NICHOLAS SIGNAL TO CUT-OFF [27962-3] 0.04 Normal 1.00 HCV antibody was non-reactiv e. There is no laboratoryevidence of HCV infection.In most cases, no further action is required. However,if recent HCV exposure is suspected, a test for HCV RNA(test code 15256) is suggested.For additional information please refer [email or web address](This link is being provided for informational/educational purposes only.) unknown 16 Normal Protein / creatinine ratio, urine, random[71653] Collected: 10/18/2020 05:19 PM Creatinine, ur [2161-8] 75 mg/dL Normal 20 - 275 mg/dL Protein/creatinine ratio [2890-2] 333 mg/g creat H 21 - 161 mg/g creat Protein/Creatinine Ratio [2890-2] 0.333 mg/mg creat H 0.021 - 0.161 mg/mg creat Protein, ur, quant [2888-6] 25 mg/dL H 5 - 24 mg/dL Lab Interpretation [84091-1] Abnormal Normal unknown 16 Normal CBC with auto differential[9 0001] Collected: 10/18/2020 05:19 PM WBC [6690-2] 7.1 Thousand/uL Normal 3.8 - 10.8 Thousand/uL RBC, POC [789-8] 3.85 Million/uL Normal 3.8 - 5. 1 Million/uL Hgb [718-7] 12.5 g/dL Normal 11.7 - 15.5 g/d L Hct [4544-3] 35.9 % Normal 35 - 45 % MCV [787-2] 93.2 fL Normal 80 - 100 fL MCH [785-6] 32.5 pg Normal 27 - 33 pg MCHC [786-4] 34.8 g/dL Normal 32 - 36 g/dL Rdw [788-0] 12.6 % Normal 11 - 15 % Platelets [777-3] 178 Thousand/uL Normal 140 - 4 00 Thousand/uL MPV [776-5] 10.6 fL Normal 7.5 - 12.5 fL Neutrophils, abs [751-8] 3962 cells/uL Normal 15 00 - 7800 cells/uL Lymphocytes, abs [731-0] 2492 cells/uL Normal 85 0 - 3900 cells/uL Monocyte abs [742-7] 483 cells/uL Normal 200 - 9 50 cells/uL Eosinophils, abs [711-2] 142 cells/uL Normal 15 - 500 cells/uL Basophils, abs [704-7] 21 cells/uL Normal Neutrophils [770-8] 55.8 % Normal Lymphocyte pct [736-9] 35.1 % Normal Monocytes [5905-5] 6.8 % Normal Eosinophils [713-8] 2 % Normal Basophils [706-2] 0.3 % Normal unknown 16 Normal Urinalysis reflex to [facility] opic and culture Urine[574449] Collected: 10/18/2020 05:19 PM Color, ur [5778-6] YELLOW Normal YELLOW Appearance, ur [5767-9] CLEAR Normal CHEVY R Specific gravity [5811-5] 1.015 Normal 1. 001 - 1.035 pH, ur [5803-2] < OR = 5.0 Normal 5 - 8 Glucose, ur [42932-2] NEGATIVE Normal NEGATI VE Bilirubin, ur [5770-3] NEGATIVE Normal NEGAT NICHOLAS Ketones, ur [2514-8] NEGATIVE Normal NEGATIV E Blood, ur [5794-3] NEGATIVE Normal NEGATIVE Protein, ur, quant [87543-8] NEGATIVE Normal NEGATIVE Nitrites, ur [5802-4] NEGATIVE Normal NEGATI VE Leukocyte esterase, ur [5799-2] 1+ A NEGATIVE WBC, ur [5821-4] 20-40 A < OR = 5 /H PF RBC, ur [06659-2] NONE SEEN Normal < OR = 2 / HPF Epithelial cells, squamous, ur [07390-5] NONE SEEN Normal < OR = 5 /HPF Bacteria, ur, quant [5769-5] MANY A NONE SEEN /HPF Hyaline cast [5796-8] NONE SEEN Normal NONE S EEN /LPF Lab Interpretation [77166-0] Abnormal Normal unknown 4 Normal TPMT activity profile, RBC[[id number]] Collected: 10/18/2020 05:19 PM TPMT activity [41494-7] 19 Normal nmol /hr/mL RBC Reference Range for TPMT Act ivity: >12 Normal 4-12 Heterozygote or low metabolizer 4 Homozygote Deficient RangeThis test was developed and its analytical performancecharacteristics have been determined by [facility]. It has not beencleared or approved by FDA. This assay has been validatedpursuant to the CLIA regulations and is used for clinicalpurposes. unknown 16 Normal Urinalysis reflex to [facility] opic and culture[[id number]] Collected: 11/27/2018 04:45 PM Ur Collection Type CLEAN CATCH Normal Ur Culture Indicated? C&S INDICATED Normal Culture report to follow. Urine Color YELLOW Normal YELLOW Urine Clarity HAZY Normal CLEAR Urine Glucose (UA) NORMAL Normal NORMAL mg /dL Urine Bilirubin NEGATIVE Normal NEGATIVE mg/ dl Urine Ketones NEGATIVE Normal NEGATIVE mg/dL Ur Specific [place] 1.014 Normal 1.005 - 1.025 Urine Blood NEGATIVE Normal NEGATIVE mg/dl Urine pH 5 Normal 5 - 8 Urine Protein NEGATIVE Normal NEGATIVE mg/dL Urine Urobilinogen NORMAL Normal NORMAL mg /dL Urine Nitrite POSITIVE H NEGATIVE Ur Leukocyte Esterase 75 H NEGATI VE Gaurang/ul Ur Microscopic Review Indicated or Ordered Normal Urine RBC 1 /HPF Normal Urine WBC 21 /HPF Normal Urine Bacteria Marked Normal /HPF Urine Mucus RARE Normal /LPF Ur Squamous Epith Cells Rare Normal /LPF Hyaline Casts 7 /LPF Normal YAJAIRA See note Normal Indication(s) for ordering , Increased freq/urgency Lab Interpretation [38915-9] Abnormal Normal unknown 4 Normal Microbiology Specimen Report (Converted)[[id number]] Collected: 11/27/2018 04:45 PM YAJAIRA See note Normal Microbiology Specimen Report (Converted), SPECIMEN [id number] COLLECTED: 2018-11-27 10:45:00 AT [facility]#: [id number], REQUESTING DR: Pantera Del Rio D.O. SOURCE: URINE SP DESC: CLEAN CATC, --- PROCEDURE --- --- RESULT --- , CULTURE URINE (Final) - Performed at [facility], * Organism 1 - KLEB PNEUMONIAE SSP PNEUMONIAE [KLE PNEUMO], * COLONY COUNT: >100,000 CFU/ml, * SEE SUSCEPTIBILITY REPORT BELOW, [KLE PNEUMO], M.I.C. RX, AMOXICILLIN/CLAVULANIC ACID =2 S, AMPICILLIN R - (NonPrintable), AMPICILLIN/SULBACTAM <=2 S, CEFAZOLIN <=4 S, CEFEPIME <=1 S, CEFTRIAXONE <=1 S, CIPROFLOXACIN <=0.25 S, ERTAPENEM <=0.5 S, GENTAMICIN <=1 S, IMIPENEM <=0.25 S, LEVOFLOXACIN <=0.12 S, NITROFURANTOIN 64 I, PIPERACILLIN/TAZOBACTAM <=4 S, TRIMETHOPRIM/SULFAMETHOXAZOLE <=20 S, TOBRAMYCIN <=1 S, , S=Susceptible I=Intermediate S=Resistant, SDD=Susceptible Dose Dependent N/R=No Report , ANNETTA =Beta Lactamase, - [facility], [address] [place] [address], Jose Gaston MD PXN See note Normal Intf Conv, Labs - [facility] - 12/19/2018 2:30 PM CDT, Microbiology Specimen Report (Converted)SPECIMEN [id number] COLLECTED: 2018-11-27 10:45:00 AT [facility]#:, [id number] DR: Pantera Del Rio D.O. SOURCE: URINE SP DESC: CLEAN CATC--- PROCEDURE --- --- RESULT ---CULTURE URINE (Final) - Performed at [facility]* Organism 1 - KLEB PNEUMONIAE SSP PNEUMONIAE [KLE PNEUMO]* COLONY COUNT: >100,000 CFU/ml* SEE SUSCEPTIBILITY REPORT BELOW[KLE PNEUMO]M.I.C. RXAMOXICILLIN/CLAVULANIC ACID =2 SAMPICILLIN R - (NonPrintable)AMPICILLIN/SULBACTAM <=2 SCEFAZOLIN <=4 SCEFEPIME <=1 SCEFTRIAXONE <=1 SCIPROFLOXACIN <=0.25 SERTAPENEM <=0.5 SGENTAMICIN <=1 SIMIPENEM <=0.25 SLEVOFLOXACIN <=0.12 SNITROFURANTOIN 64 IPIPERACILLIN/TAZOBACTAM <=4 STRIMETHOPRIM/SULFAMETHOXAZOLE <=20 STOBRAMYCIN <=1 S S=Susceptible I=Intermediate S=ResistantSDD=Susceptible Dose Dependent N/R=No ReportBLAC =Beta Lactamase- [address] [address]Oopkumarissa Gaston MD unknown 16 Normal CBC with auto differential[9 0001] Collected: 11/27/2018 04:53 PM WBC 4.9 X10 3/ul Normal 3.8 - 9.9 X10 3/ul RBC 3.57 x10 6/ul L 3.9 - 5.2 x10 6/ul Hemoglobin 11.7 g/dL L 11.9 - 15.5 g/d L Hct 35.7 % Normal 35.6 - 45.5 % MCV 100 fl H 81.3 - 96.4 fl MCH 32.8 pg Normal 27.1 - 33.3 pg MCHC 32.8 g/dl Normal 32.3 - 35.7 g/d l RDW 12.7 % Normal 11.1 - 14.9 % Plt Count 156 x10 3/ul Normal 150 - 400 x10 3/ul MPV 10.2 fl Normal 9.1 - 12.3 fl Neut % 53.7 % Normal Immature Gran % 0.2 % Normal Lymph % 34.4 % Normal [place] % 9.7 % Normal Eos % 1.6 % Normal Baso % 0.4 % Normal Absolute Neuts (auto) 2.7 x10 3/ul Normal 1.7 - 6.5 x10 3/ul Immature Gran # 0 x10 3/ul Normal Absolute Lymphs (auto) 1.7 x10 3/ul Normal 0.8 - 3.3 x10 3/ul Absolute Monos (auto) 0.5 x10 3/ul Normal 0.2 - 0.8 x10 3/ul Absolute Eos (auto) 0.1 x10 3/ul Normal Absolute Basos (auto) 0 x10 3/ul Normal Nucleat RBC Rel Count 0 Normal #/100W BC Absolute Nucleated RBC 0 x10 3/ul Normal Absolute Neutrophils 2700 /ul Normal 200 - 8 000 /ul Lab Interpretation [[id number]] Abnormal Normal unknown 16 Normal Comprehensive metabolic pane l[682] Collected: 11/27/2018 04:53 PM Sodium 139 mmol/L Normal 135 - 145 mmol/ L Potassium 3.9 mmol/L Normal 3.3 - 5.1 mmol/ L Chloride 102 mmol/L Normal 96 - 108 mmol/L Carbon Dioxide 23 mmol/L Normal 22 - 32 mmol/ L Anion Gap 14 Normal 7 - 16 Glucose 120 mg/dL H 70 - 100 mg/dL BUN 49 mg/dL H 8 - 25 mg/dL Creatinine 1 mg/dL Normal 0.5 - 1.1 mg/dL NOTE: Estimated GFR (Cockrof t-Gault) will NOT be calculatedunless patient Height and Weight were entered.Also, Kidney Disease Stage (GFR) and Estimated GFR(Cockroft-Gault) will NOT be calculated if Creatinine resultis 0.2. Kidney Disease Stage 58 Normal mL/MIN NOTE; The GFR is an estimated value using thecreatinine, sex, age, and race of the patient.THE Estimated Kidney Disease GFR is validated for [id number] YEARSSTAGE mL/Min DESCRIPTION 1 90 mL/min or more Normal or elevated GFR 2 60-89 mL/min Mildly decreased GFR 3 30-59 mL/min Moderately decreased GFR 4 15-29 mL/min Severely decreased GFR 5 15 mL/min Kidney failure or on dialysis@ Est GFR (Cockcroft-G) 56 Normal ml/MIN Estimated GFR(Cockroft-Ga ult)is used to calculate patientmedication dosage Calcium 10.2 mg/dL Normal 8.6 - 10.3 mg/d L Total Protein 8.5 g/dL H 6.4 - 8.3 g/dL Albumin 3.9 g/dL Normal 3.5 - 5 g/dL Globulin 4.6 gm/dL H 2.3 - 3.5 gm/dL Albumin/Globulin Ratio 0.8 L 1.1 - 1.8 Total Bilirubin 0.3 mg/dL Normal AST 20 U/L Normal ALT 20 U/L Normal Alkaline Phosphatase 66 U/L Normal 35 - 10 4 U/L Lab Interpretation [57515-0] Abnormal Normal unknown 16 Normal Lipase[846] Collected: 11/27/2018 04:53 PM Lipase 133 U/L H 13 - 60 U/L Lab Interpretation [01654-9] Abnormal Normal unknown 16 Normal MAMMOGRAPHY[53960] Collected: 07/10/2018 12:00 AM [facility] TSH reflex to free T4[[id number] ] Collected: 04/01/2019 03:18 PM TSH [3016-3] 0.01 mIU/L L 0.4 - 4.5 mIU/L YAJAIRA See note Normal FASTING:NO, FASTING: NO RAC See note Normal Performing Organization Info rmation:, Site ID: DORITA, Name: [facility], Address: [address] [place] [phone], Director: Axel Dudley D.O., MPH Lab Interpretation [64862-2] Abnormal Normal unknown 16 Normal T4, Free[622923] Collected: 04/01/2019 03:18 PM Free T4 [3024-7] 2.4 ng/dL H 0.8 - 1.8 n g/dL YAJAIRA See note Normal FASTING:NO, FASTING: NO RAC See note Normal Performing Organization Info rmation:, Site ID: [facility], Name: [facility], Address: [address] [place] [phone], Director: Axel Dudley D.O., MPH Lab Interpretation [90648-6] Abnormal Normal unknown 16 Normal US Carotids Bilateral[[id number] ] Collected: 04/14/2019 07:14 PM YAJAIRA See note Normal , , , , Patient Name: ALEIDA SANCHEZ MR#: [id number] , [id number] , , Status: REG CLI D.O.B: 1950 Age: 68 Sex: Female , , ADM/SER Dt: 04/14/19 Disch Dt: LOC: [facility] , , Ordering Phy:, Purnima Rosario PA-C , , , , , , , Order #[id number] , Carotid Ultrasound Bilateral , Matheus Will MD , , , Signed , DATE OF SERVICE: , 04/14/2019 , , REASON FOR EXAM: Carotid bruit. , , COMMENTS ON THE RIGHT: Peak systolic velocity in the CCA of 88 and 67. ICA 61. Smooth, heterogenous plaque seen in proximal ICA. ECA velocity of 50. Antegrade flow noted in vertebral, artery with a velocity of 60. , , COMMENTS ON THE LEFT: Peak systolic velocity in the CCA of 92 and 70. ICA 59. Smooth, heterogenous plaque seen in the proximal ICA. ECA velocity of 80. Antegrade flow noted in the, vertebral artery with a velocity of 61. , , IMPRESSION: , 1. 1-15% stenosis right internal carotid artery with 16-49% stenosis noted on the left. , 2. Antegrade flow noted in the bilateral vertebral arteries. , , , NTS , , , Job: [id number] , , , , , Dictated By: Matheus Will MD , Dictated For: Matheus Will MD , , , <Electronically signed by Matheus Will MD> , 04/14/19 2237 PXN See note Normal Bj/Wu Incoming Its Result s From [facility] - 04/14/2019 10:37 PM CDT, ____, Patient Name: ALEIDA SANCHEZ , MR#: [id number]: ORQUIDEA PUENTES D.KatinaB: 1950 Age: 68, Sex: FemaleADM/SER Dt: 04/14/19 Disch Dt:, LOC: [facility] Phy:Purnima Rosario PA-C , Order #[id number] Ultrasound BilateralPatrick Barbara Will MDSignedDATE OF SERVICE:04/14/2019REASON FOR EXAM: Carotid bruit.COMMENTS ON THE RIGHT: Peak systolic velocity in the CCA of 88 and 67., ICA 61. Smoothheterogenous plaque seen in proximal ICA. ECA velocity of 50. Antegrade, flow noted in vertebralartery with a velocity of 60.COMMENTS ON THE LEFT: Peak systolic velocity in the CCA of 92 and 70., ICA 59. Smoothheterogenous plaque seen in the proximal ICA. ECA velocity of 80., Antegrade flow noted in thevertebral artery with a velocity of 61.IMPRESSION:1. 1-15% stenosis right internal carotid artery with 16-49% stenosis, noted on the left.2. Antegrade flow noted in the bilateral vertebral arteries.NTSD:04/14/2019 14:14:35T:04/14/2019 14:37:09Job: [id number] By: Matheus Will MDDictated For: Matheus Will MD<Electronically signed by Matheus Will MD>04/14/19 2237 RAC See note Normal O unknown 7 Normal Comprehensive metabolic pane l[682] Collected: 02/25/2019 04:12 PM Glucose [2345-7] 108 mg/dL H 65 - 99 mg/ dL Fasting reference intervalFor someone without known diabetes, a glucose valuebetween 100 and 125 mg/dL is consistent withprediabetes and should be confirmed with afollow-up test. BUN [3094-0] 18 mg/dL Normal 7 - 25 mg/dL Creatinine [2160-0] 0.76 mg/dL Normal 0.5 - 0. 99 mg/dL For patients >49 years of ag e, the reference limitfor Creatinine is approximately 13% higher for peopleidentified as -Sudanese. eGFR NON-AFR. POLISH [29198-4] 80 Normal >OR = 60 mL/min/1.73m2 EGFR [03292-9] 93 Normal >OR = 60 mL/min/1.73m2 BUN/creat ratio [3097-3] NOT APPLICABLE (calc) Normal 6 - 22 (calc) Sodium [2951-2] 142 mmol/L Normal 135 - 146 mm ol/L Potassium, pl [2823-3] 3.9 mmol/L Normal 3.5 - 5.3 mmol/L Chloride [5-0] 104 mmol/L Normal 98 - 110 m mol/L CO2 [2027-9] 28 mmol/L Normal 20 - 32 mmol/L Calcium [91193-2] 9.3 mg/dL Normal 8.6 - 10.4 mg/dL Protein, sr [2885-2] 7.4 g/dL Normal 6.1 - 8 .1 g/dL Albumin [1751-7] 3.7 g/dL Normal 3.6 - 5.1 g /dL GLOBULIN [08943-1] 3.7 g/dL (calc) Normal 1.9 - 3.7 g/dL (calc) Alb/glob ratio [1759-0] 1 (calc) Normal 1 - 2.5 (calc) Bilirubin, total [1974-10] 0.5 mg/dL Normal 0. 2 - 1.2 mg/dL Alk phos [6768-6] 58 U/L Normal 33 - 130 U /L AST [1920-8] 17 U/L Normal 10 - 35 U/L ALT (SGPT) [1742-6] 13 U/L Normal 6 - 29 U /L YAJAIRA See note Normal FASTING:YES, FASTING: YES RAC See note Normal Performing Organization Info rmation:, Site ID: [facility], Name: [facility], Address: [address] [place] [phone], Director: Axel Dudley D.O., MPH Lab Interpretation [74646-1] Abnormal Normal unknown 16 Normal TSH W/REFL FT4[[id number]] Collected: 02/25/2019 04:12 PM TSH [3016-3] 0.01 mIU/L L 0.4 - 4.5 mIU/L Free T4 [3024-7] 2.2 ng/dL H 0.8 - 1.8 n g/dL YAJAIRA See note Normal FASTING:YES, FASTING: YES RAC See note Normal Performing Organization Info rmation:, Site ID: [place], Name: [facility], Address: [address] [place] [address] [place] [address], Director: Axel Dudley D.O., MPH Lab Interpretation [01944-4] Abnormal Normal unknown 16 Normal Comprehensive metabolic pane l[682] Collected: 01/16/2019 03:53 PM Glucose [2345-7] 108 mg/dL H 65 - 99 mg/ dL Fasting reference intervalFor someone without known diabetes, a glucose valuebetween 100 and 125 mg/dL is consistent withprediabetes and should be confirmed with afollow-up test. BUN [3094-0] 19 mg/dL Normal 7 - 25 mg/dL Creatinine [2160-0] 0.91 mg/dL Normal 0.5 - 0. 99 mg/dL For patients >49 years of ag e, the reference limitfor Creatinine is approximately 13% higher for peopleidentified as -Sudanese. eGFR NON-AFR. POLISH [95397-7] 64 Normal >OR = 60 mL/min/1.73m2 EGFR [56147-0] 75 Normal >OR = 60 mL/min/1.73m2 BUN/creat ratio [3097-3] NOT APPLICABLE (calc) Normal 6 - 22 (calc) Sodium [2951-2] 141 mmol/L Normal 135 - 146 mm ol/L Potassium, pl [2823-3] 4 mmol/L Normal 3.5 - 5.3 mmol/L Chloride [5-0] 102 mmol/L Normal 98 - 110 m mol/L CO2 [2027-9] 30 mmol/L Normal 20 - 32 mmol/L Calcium [83338-8] 9.4 mg/dL Normal 8.6 - 10.4 mg/dL Protein, sr [2885-2] 7.7 g/dL Normal 6.1 - 8 .1 g/dL Albumin [1751-7] 4 g/dL Normal 3.6 - 5.1 g /dL GLOBULIN [22878-4] 3.7 g/dL (calc) Normal 1.9 - 3.7 g/dL (calc) Alb/glob ratio [1759-0] 1.1 (calc) Normal 1 - 2.5 (calc) Bilirubin, total [1974-2] 0.5 mg/dL Normal 0. 2 - 1.2 mg/dL Alk phos [68-6] 55 U/L Normal 33 - 130 U /L AST [1920-8] 26 U/L Normal 10 - 35 U/L ALT (SGPT) [1742-6] 21 U/L Normal 6 - 29 U /L YAJAIRA See note Normal 0; 0; 0 RAC See note Normal Performing Organization Info rmation:, Site ID: [facility]OR[facility], [facility], Address: [address] [place] [phone], Director: Axel Dudley D.O. MPH Lab Interpretation [90076-8] Abnormal Normal unknown 16 Normal T4, free[902] Collected: 01/16/2019 03:53 PM Free T4 [3024-7] 2.2 ng/dL H 0.8 - 1.8 n g/dL YAJAIRA See note Normal 0; 0; 0 RAC See note Normal Performing Organization Info rmation:, Site ID: [facility], [facility], Address: [address] [place] [phone], Director: Axel Dudley D.O., MPH Lab Interpretation [04456-9] Abnormal Normal unknown 16 Normal TSH[906] Collected: 01/16/2019 03:53 PM TSH [3016-3] 0.01 mIU/L L 0.4 - 4.5 mIU/L YAJAIRA See note Normal 0; 0; 0 RAC See note Normal Performing Organization Info rmation:, Site ID: [place], [facility], Address: [address] [place] [phone], Director: Axel Dudley D.O., MPH Lab Interpretation [37155-4] Abnormal Normal unknown 16 Normal YINA reflex to quantitative[6 1231] Collected: 05/08/2019 08:54 PM YINA, qual [42596-2] POSITIVE A NEGATIVE Although the specimen was po sitive for anti-nuclear antibodies (YINA), the presence ofcytoplasmic fluorescence was noted on theHEp-2 slide. Other reactivities (e.g., anti-mitochondrial antibodies or anti-smoothmuscle antibodies) may be responsible forthis fluorescence.YINA IFA is a first line screen for detecting thepresence of up to approximately 150 autoantibodies invarious autoimmune diseases. A positive YINA IFA resultis suggestive of autoimmune disease and reflexes totiter and pattern. Further laboratory testing may beconsidered if clinically indicated.Visit Physician FAQs for interpretation of allantibodies in the [place], prevalence, and associationwith diseases at http://Gamersband.Zoondy/faq/YPQ521 YINA, pattern [53889-9] HOMOGENEOUS A Homogeneous pattern is assoc iated with systemic lupuserythematosus (SLE), drug induced lupus and juvenileidiopathic arthritis. YINA, quant [5048-4] 1:80 H titer A low level YINA titer may be present in pre-clinicalautoimmune diseases and normal individuals. Reference Range 1:80 Elevated Antibody Level RAC See note Normal Performing Organization Info rmation:, Site ID: [place], Name: [facility], Address: [address] [place] [phone], Director: Axel Dudley D.O., MPH Lab Interpretation [66132-7] Abnormal Normal unknown 16 Normal TSH reflex to free T4[647235 ] Collected: 05/08/2019 08:54 PM TSH [3016-3] 0.03 mIU/L L 0.4 - 4.5 mIU/L RAC See note Normal Performing Organization Info rmation:, Site ID: [facility], Name: [facility], Address: [address] [place] [phone], Director: Axel Dudley D.O., MPH Lab Interpretation [95823-3] Abnormal Normal unknown 16 Normal T4, Free[818941] Collected: 05/08/2019 08:54 PM Free T4 [3024-7] 1.5 ng/dL Normal 0.8 - 1.8 n g/dL RAC See note Normal Performing Organization Info rmation:, Site ID: [facility], Name: [facility], Address: [address] [place] [phone], Director: Axel Dudley D.O., MPH unknown 16 Normal T3, Free[505572] Collected: 05/08/2019 08:54 PM Free T3 [3051-0] 2.8 pg/mL Normal 2.3 - 4.2 p g/mL RAC See note Normal Performing Organization Info rmation:, Site ID: [facility], Name: [facility], Address: [address] [place] [phone], Director: Axel Dudley D.O., MPH unknown 16 Normal Magnesium[854] Collected: 07/22/2020 12:17 PM Magnesium [05094-4] 1.5 mg/dL Normal 1.5 - 2. 5 mg/dL unknown 16 Normal TSH[906] Collected: 07/22/2020 12:17 PM TSH [3016-3] 11.59 mIU/L H 0.4 - 4.5 mIU/L Lab Interpretation [71914-7] Abnormal Normal unknown 16 Normal Comprehensive metabolic pane l[682] Collected: 04/07/2020 04:53 PM Glucose [2345-7] 106 mg/dL H 65 - 99 mg/ dL Fasting reference intervalFor someone without known diabetes, a glucose valuebetween 100 and 125 mg/dL is consistent withprediabetes and should be confirmed with afollow-up test. BUN [3094-0] 28 mg/dL H 7 - 25 mg/dL Creatinine [2160-0] 0.97 mg/dL H 0.6 - 0. 93 mg/dL For patients >49 years of ag e, the reference limitfor Creatinine is approximately 13% higher for peopleidentified as -Sudanese. eGFR NON-AFR. POLISH [93981-4] 59 L >OR = 60 mL/min/1.73m2 EGFR [85321-5] 69 Normal >OR = 60 mL/min/1.73m2 BUN/creat ratio [3097-3] 29 (calc) H 6 - 22 (calc) Sodium [2951-2] 140 mmol/L Normal 135 - 146 mm ol/L Potassium, pl [2823-3] 4.5 mmol/L Normal 3.5 - 5.3 mmol/L Chloride [2075-0] 101 mmol/L Normal 98 - 110 m mol/L CO2 [2027-9] 29 mmol/L Normal 20 - 32 mmol/L Calcium [41266-4] 9.9 mg/dL Normal 8.6 - 10.4 mg/dL Protein, sr [2885-2] 7.8 g/dL Normal 6.1 - 8 .1 g/dL Albumin [1751-7] 4.2 g/dL Normal 3.6 - 5.1 g /dL GLOBULIN [99247-6] 3.6 g/dL (calc) Normal 1.9 - 3.7 g/dL (calc) Alb/glob ratio [1759-0] 1.2 (calc) Normal 1 - 2.5 (calc) Bilirubin, total [1974-10] 0.5 mg/dL Normal 0. 2 - 1.2 mg/dL Alk phos [6768-6] 65 U/L Normal 37 - 153 U /L AST [1920-8] 14 U/L Normal 10 - 35 U/L ALT (SGPT) [1741-6] 9 U/L Normal 6 - 29 U /L YAJAIRA See note Normal FASTING:YES, FASTING: YES Lab Interpretation [81585-0] Abnormal Normal unknown 16 Normal Hemoglobin A1c[828] Collected: 04/07/2020 04:53 PM Hgb A1C [4548-4] 6.1 H 5.7 % of to damien Hgb For someone without known di abetes, a ibxdatkrhxU6z value between 5.7% and 6.4% is consistent withprediabetes and should be confirmed with afollow-up test.For someone with known diabetes, a value 7%indicates that their diabetes is well controlled. P4lwaohffo should be individualized based on duration ofdiabetes, age, comorbid conditions, and otherconsiderations.This assay result is consistent with an increased riskof diabetes.Currently, no consensus exists regarding use ofhemoglobin A1c for diagnosis of diabetes for children. YAJAIRA See note Normal FASTING:YES, FASTING: YES Lab Interpretation [55633-1] Abnormal Normal unknown 16 Normal TSH reflex to free T4[029709 ] Collected: 04/07/2020 04:53 PM TSH [3016-3] 2.63 mIU/L Normal 0.4 - 4.5 mIU/L YAJAIRA See note Normal FASTING:YES, FASTING: YES unknown 16 Normal Magnesium[854] Collected: 04/07/2020 04:53 PM Magnesium [31034-9] 1.3 mg/dL L 1.5 - 2. 5 mg/dL YAJAIRA See note Normal FASTING:YES, FASTING: YES Lab Interpretation [96404-3] Abnormal Normal unknown 16 Normal Lipid panel[684] Collected: 04/07/2020 04:53 PM Cholesterol [3-3] 127 mg/dL Normal 200 mg/ dL HDL [2084-9] 37 mg/dL L >OR = 50 mg/dL Triglycerides [2571-8] 169 mg/dL H 150 m g/dL LDL [40445-1] 65 Normal mg/dL (calc) Reference range: or = 2 CHD risk factors.LDL-C is now calculated using the SiennaMonticellocalculation, which is a validated novel method providingbetter accuracy than the Friedewald equation in theestimation of LDL-C.Luis Alberto SS et al. MARKELL. 2013;310(19): 8492-4804(http://Gamersband.Zoondy/faq/JPU059) Chol/HDL ratio [9830-1] 3.4 Normal 5.0 (calc) Non-HDL, (LDL+VLDL) [57989-3] 90 Normal 130 mg/dL (calc) For patients with diabetes p amber 1 major ASCVD riskfactor, treating to a non-HDL-C goal of 100 mg/dL(LDL-C of <70 mg/dL) is considered a therapeuticoption. YAJAIRA See note Normal FASTING:YES, FASTING: YES Lab Interpretation [09299-3] Abnormal Normal unknown 16 Normal CARDIOLOGY REPORT[[id number]] Collected: 11/25/2018 06:00 AM YAJAIRA See note Normal Ordered by an unspecified pr ovider. unknown 7 Normal SCAN - RADIOLOGY/IMAGING[SCA N008] Collected: 07/10/2018 12:00 AM SCAN - RADIOLOGY/IMAGING 7 Normal SCAN - RADIOLOGY/IMAGING[SCA N008] Collected: 05/13/2019 12:00 AM SCAN - RADIOLOGY/IMAGING 7 Normal CBC with auto differential[9 0001] Collected: 08/23/2020 02:04 PM WBC [6690-2] 4.3 Thousand/uL Normal 3.8 - 10.8 Thousand/uL RBC, POC [789-8] 3.4 Million/uL L 3.8 - 5.1 Million/uL Hgb [718-7] 10.9 g/dL L 11.7 - 15.5 g/d L Hct [4544-3] 32.4 % L 35 - 45 % MCV [787-2] 95.3 fL Normal 80 - 100 fL MCH [785-6] 32.1 pg Normal 27 - 33 pg MCHC [786-4] 33.6 g/dL Normal 32 - 36 g/dL Rdw [788-0] 13 % Normal 11 - 15 % Platelets [777-3] 169 Thousand/uL Normal 140 - 4 00 Thousand/uL MPV [776-5] 10.2 fL Normal 7.5 - 12.5 fL Neutrophils, abs [751-8] 1776 cells/uL Normal 15 00 - 7800 cells/uL Lymphocytes, abs [731-0] 1922 cells/uL Normal 85 0 - 3900 cells/uL Monocyte abs [742-7] 370 cells/uL Normal 200 - 9 50 cells/uL Eosinophils, abs [711-2] 211 cells/uL Normal 15 - 500 cells/uL Basophils, abs [704-7] 22 cells/uL Normal Neutrophils [770-8] 41.3 % Normal Lymphocyte pct [736-9] 44.7 % Normal Monocytes [5905-5] 8.6 % Normal Eosinophils [713-8] 4.9 % Normal Basophils [706-2] 0.5 % Normal YAJAIRA See note Normal FASTING:YES, FASTING: YES Lab Interpretation [87977-9] Abnormal Normal unknown 16 Normal Iron profile w/ IBC[449934] Collected: 08/23/2020 02:04 PM Iron [2498-4] 81 mcg/dL Normal 45 - 160 mcg/d L TIBC [2500-7] 290 mcg/dL (calc) Normal 250 - 450 mcg/dL (calc) Iron saturation [2502-3] 28 % (calc) Normal 16 - 45 % (calc) YAJAIRA See note Normal FASTING:YES, FASTING: YES unknown 16 Normal Ferritin[784] Collected: 08/23/2020 02:04 PM Ferritin [2276-4] 95 ng/mL Normal 16 - 288 n g/mL YAJAIRA See note Normal FASTING:YES, FASTING: YES unknown 16 Normal Vitamin B12[782] Collected: 08/23/2020 02:04 PM Cyanocobalamin (Vit B12) [2132-9] 225 pg/mL Normal 200 - 1100 pg/mL Please Note: Although the re ference range for mujgmezY40 is 200-1100 pg/mL, it has been reported that between5 and 10% of patients with values between 200 and 400pg/mL may experience neuropsychiatric and hematologicabnormalities due to occult B12 deficiency; less than 1%of patients with values above 400 pg/mL will have symptoms. YAJAIRA See note Normal FASTING:YES, FASTING: YES unknown 16 Normal Magnesium[854] Collected: 10/08/2019 05:42 PM Magnesium [56941-6] 1.2 mg/dL L 1.5 - 2. 5 mg/dL YAJAIRA See note Normal FASTING:YES, FASTING: YES RAC See note Normal Performing Organization Info rmation:, Site ID: [place], Name: [facility], Address: [address] [place] [id number], Director: Axel Dudley D.O., MPH Lab Interpretation [[id number]] Abnormal Normal unknown 16 Normal T4, free[902] Collected: 10/08/2019 05:42 PM Free T4 [3024-7] 1.2 ng/dL Normal 0.8 - 1.8 n g/dL YAJAIRA See note Normal FASTING:YES, FASTING: YES RAC See note Normal Performing Organization Info rmation:, Site ID: [place], Name: [facility], Address: [address] [place] [id number], Director: Axel Dudley D.O., MPH unknown 16 Normal Comprehensive metabolic pane l[682] Collected: 10/08/2019 05:42 PM Glucose [2345-7] 113 mg/dL H 65 - 99 mg/ dL Fasting reference intervalFor someone without known diabetes, a glucose valuebetween 100 and 125 mg/dL is consistent withprediabetes and should be confirmed with afollow-up test. BUN [3094-0] 32 mg/dL H 7 - 25 mg/dL Creatinine [2160-0] 1.11 mg/dL H 0.5 - 0. 99 mg/dL For patients >49 years of ag e, the reference limitfor Creatinine is approximately 13% higher for peopleidentified as -Sudanese. eGFR NON-AFR. POLISH [01975-1] 51 L >OR = 60 mL/min/1.73m2 EGFR [25325-4] 59 L >OR = 60 mL/min/1.73m2 BUN/creat ratio [3097-3] 29 (calc) H 6 - 22 (calc) Sodium [2951-2] 141 mmol/L Normal 135 - 146 mm ol/L Potassium, pl [2823-3] 4.5 mmol/L Normal 3.5 - 5.3 mmol/L Chloride [2074-0] 104 mmol/L Normal 98 - 110 m mol/L CO2 [2028-05] 28 mmol/L Normal 20 - 32 mmol/L Calcium [93384-4] 9.4 mg/dL Normal 8.6 - 10.4 mg/dL Protein, sr [2885-2] 7.3 g/dL Normal 6.1 - 8 .1 g/dL Albumin [1751-7] 4 g/dL Normal 3.6 - 5.1 g /dL GLOBULIN [06993-8] 3.3 g/dL (calc) Normal 1.9 - 3.7 g/dL (calc) Alb/glob ratio [1758-0] 1.2 (calc) Normal 1 - 2.5 (calc) Bilirubin, total [1974-10] 0.4 mg/dL Normal 0. 2 - 1.2 mg/dL Alk phos [6768-6] 68 U/L Normal 33 - 130 U /L AST [1919-] 12 U/L Normal 10 - 35 U/L ALT (SGPT) [1741-6] 10 U/L Normal 6 - 29 U /L YAJAIRA See note Normal FASTING:YES, FASTING: YES RAC See note Normal Performing Organization Info rmation:, Site ID: DORITA, Name: [employer], Address: [address] [place] [phone], Director: Axel Dudley D.O., MPH Lab Interpretation [16167-0] Abnormal Normal unknown 16 Normal TSH[906] Collected: 10/08/2019 05:42 PM TSH [3016-3] 0.21 mIU/L L 0.4 - 4.5 mIU/L YAJAIRA See note Normal FASTING:YES, FASTING: YES RAC See note Normal Performing Organization Info rmation:, Site ID: DORITA, Name: [employer], Address: [address] [place] [phone], Director: Axel Dudley D.O., MPH Lab Interpretation [06928-3] Abnormal Normal unknown 16 Normal Comprehensive metabolic pane l[682] Collected: 11/11/2019 05:36 PM Glucose [2345-7] 106 mg/dL H 65 - 99 mg/ dL Fasting reference intervalFor someone without known diabetes, a glucose valuebetween 100 and 125 mg/dL is consistent withprediabetes and should be confirmed with afollow-up test. BUN [3094-0] 19 mg/dL Normal 7 - 25 mg/dL Creatinine [2160-0] 1.04 mg/dL H 0.6 - 0. 93 mg/dL For patients >49 years of ag e, the reference limitfor Creatinine is approximately 13% higher for peopleidentified as -Sudanese. eGFR NON-AFR. POLISH [82271-1] 54 L >OR = 60 mL/min/1.73m2 EGFR [03599-6] 63 Normal >OR = 60 mL/min/1.73m2 BUN/creat ratio [3097-3] 18 (calc) Normal 6 - 22 (calc) Sodium [2951-2] 139 mmol/L Normal 135 - 146 mm ol/L Potassium, pl [2823-3] 4.2 mmol/L Normal 3.5 - 5.3 mmol/L Chloride [5-0] 102 mmol/L Normal 98 - 110 m mol/L CO2 [2027-9] 30 mmol/L Normal 20 - 32 mmol/L Calcium [63926-4] 9.8 mg/dL Normal 8.6 - 10.4 mg/dL Protein, sr [2885-2] 7.7 g/dL Normal 6.1 - 8 .1 g/dL Albumin [1751-7] 4 g/dL Normal 3.6 - 5.1 g /dL GLOBULIN [06292-0] 3.7 g/dL (calc) Normal 1.9 - 3.7 g/dL (calc) Alb/glob ratio [1759-0] 1.1 (calc) Normal 1 - 2.5 (calc) Bilirubin, total [1974-] 0.3 mg/dL Normal 0. 2 - 1.2 mg/dL Alk phos [3968-6] 69 U/L Normal 37 - 153 U /L AST [1920-8] 16 U/L Normal 10 - 35 U/L ALT (SGPT) [1742-6] 12 U/L Normal 6 - 29 U /L YAJAIRA See note Normal FASTING:YES, FASTING: YES RAC See note Normal Performing Organization Info rmation:, Site ID: [facility]ORITA, Name: [employer], Address: [address] [place] [phone], Director: Axel Dudley D.O., MPH Lab Interpretation [50040-5] Abnormal Normal unknown 16 Normal Magnesium[854] Collected: 11/11/2019 05:36 PM Magnesium [35364-5] 1.4 mg/dL L 1.5 - 2. 5 mg/dL YAJAIRA See note Normal FASTING:YES, FASTING: YES RAC See note Normal Performing Organization Info rmation:, Site ID: DORITA, Name: [employer], Address: [address] [place] [phone], Director: Axel Dudley D.O., MPH Lab Interpretation [29529-2] Abnormal Normal unknown 16 Normal TSH reflex to free T4[500406 ] Collected: 11/11/2019 05:36 PM TSH [3016-3] 1.01 mIU/L Normal 0.4 - 4.5 mIU/L YAJAIRA See note Normal FASTING:YES, FASTING: YES RAC See note Normal Performing Organization Info rmation:, Site ID: [facility]ITA, Name: [employer], Address: [address] [place] [phone], Director: Axel Dudley D.O., MPH unknown 16 Normal YINA reflex to quantitative[6 4668] Collected: 07/27/2020 01:02 PM YINA, qual [07686-7] NEGATIVE Normal NEGATIVE YINA IFA is a first line scre en for detecting thepresence of up to approximately 150 autoantibodies invarious autoimmune diseases. A negative YINA IFA resultsuggests an YINA-associated autoimmune disease is notpresent at this time, but is not definitive. If thereis high clinical suspicion for Sjogren's syndrome,testing for anti-SS-A/Ro antibody should be considered.Anti-Allie-1 antibody should be considered for clinicallysuspected inflammatory myopathies.AC-0: NegativeInternational Consensus on YINA Patterns(https://doi.org/10.1515/zdxy-0710-0809)For additional information, please refer tohttp://education.Zoondy/faq/BVX058(This link is being provided for informational/educational purposes only.) YAJAIRA See note Normal FASTING:YES, FASTING: YES unknown 16 Normal CBC with auto differential[9 0001] Collected: 07/27/2020 01:02 PM WBC [6690-2] 6.3 Thousand/uL Normal 3.8 - 10.8 Thousand/uL RBC, POC [789-8] 3.65 Million/uL L 3.8 - 5. 1 Million/uL Hgb [718-7] 11.6 g/dL L 11.7 - 15.5 g/d L Hct [4544-3] 34.4 % L 35 - 45 % MCV [787-2] 94.2 fL Normal 80 - 100 fL MCH [785-6] 31.8 pg Normal 27 - 33 pg MCHC [786-4] 33.7 g/dL Normal 32 - 36 g/dL Rdw [788-0] 12.3 % Normal 11 - 15 % Platelets [777-3] 226 Thousand/uL Normal 140 - 4 00 Thousand/uL MPV [776-5] 10.5 fL Normal 7.5 - 12.5 fL Neutrophils, abs [751-8] 4883 cells/uL Normal 15 00 - 7800 cells/uL Lymphocytes, abs [731-0] 1247 cells/uL Normal 85 0 - 3900 cells/uL Monocyte abs [742-7] 158 cells/uL L 200 - 9 50 cells/uL Eosinophils, abs [711-2] 0 cells/uL L 15 - 500 cells/uL Basophils, abs [704-7] 13 cells/uL Normal Neutrophils [770-8] 77.5 % Normal Lymphocyte pct [736-9] 19.8 % Normal Monocytes [5905-5] 2.5 % Normal Eosinophils [713-8] 0 % Normal Basophils [706-2] 0.2 % Normal YAJAIRA See note Normal FASTING:YES, FASTING: YES Lab Interpretation [42426-3] Abnormal Normal unknown 16 Normal Comprehensive metabolic pane l[682] Collected: 07/27/2020 01:02 PM Glucose [2345-7] 133 mg/dL H 65 - 99 mg/ dL Fasting reference intervalFor someone without known diabetes, a glucosevalue >125 mg/dL indicates that they may havediabetes and this should be confirmed with afollow-up test. BUN [3094-0] 27 mg/dL H 7 - 25 mg/dL Creatinine [2160-0] 0.94 mg/dL H 0.6 - 0. 93 mg/dL For patients >49 years of ag e, the reference limitfor Creatinine is approximately 13% higher for peopleidentified as -Sudanese. eGFR NON-AFR. POLISH [40123-6] 61 Normal >OR = 60 mL/min/1.73m2 EGFR [51482-3] 71 Normal >OR = 60 mL/min/1.73m2 BUN/creat ratio [3097-3] 29 (calc) H 6 - 22 (calc) Sodium [2951-2] 138 mmol/L Normal 135 - 146 mm ol/L Potassium, pl [2823-3] 4.4 mmol/L Normal 3.5 - 5.3 mmol/L Chloride [2075-0] 99 mmol/L Normal 98 - 110 m mol/L CO2 [2027-9] 27 mmol/L Normal 20 - 32 mmol/L Calcium [86096-4] 9.5 mg/dL Normal 8.6 - 10.4 mg/dL Protein, sr [2885-2] 8 g/dL Normal 6.1 - 8 .1 g/dL Albumin [1751-7] 3.9 g/dL Normal 3.6 - 5.1 g /dL GLOBULIN [37227-6] 4.1 g/dL (calc) H 1.9 - 3.7 g/dL (calc) Alb/glob ratio [1759-0] 1 (calc) Normal 1 - 2.5 (calc) Bilirubin, total [1974-2] 0.4 mg/dL Normal 0. 2 - 1.2 mg/dL Alk phos [2368-6] 75 U/L Normal 37 - 153 U /L AST [1920-8] 14 U/L Normal 10 - 35 U/L ALT (SGPT) [1742-6] 8 U/L Normal 6 - 29 U /L YAJAIRA See note Normal FASTING:YES, FASTING: YES Lab Interpretation [44880-7] Abnormal Normal unknown 16 Normal Hemoglobin A1c[828] Collected: 07/27/2020 01:02 PM Hgb A1C [4548-4] 6.2 H 5.7 % of to damien Hgb For someone without known di abetes, a bmomcctpahH5h value between 5.7% and 6.4% is consistent withprediabetes and should be confirmed with afollow-up test.For someone with known diabetes, a value 7%indicates that their diabetes is well controlled. D7wcolaycu should be individualized based on duration ofdiabetes, age, comorbid conditions, and otherconsiderations.This assay result is consistent with an increased riskof diabetes.Currently, no consensus exists regarding use ofhemoglobin A1c for diagnosis of diabetes for children. YAJAIRA See note Normal FASTING:YES, FASTING: YES Lab Interpretation [13647-7] Abnormal Normal unknown 16 Normal DEXA SCAN[91753] Collected: 08/05/2019 12:00 AM DEXA Scan Abnormal Normal [place] Spine (-0.3), Left Hip (-1.7), RT Hip (-1.8) ECG 12 lead[509] Collected: 07/14/2019 12:00 AM ECG 12 lead 6 Normal SCAN - RADIOLOGY/IMAGING[SCA N008] Collected: 08/05/2019 12:00 AM SCAN - RADIOLOGY/IMAGING 7 Normal MAMMOGRAPHY[66666] Collected: 08/05/2019 12:00 AM Mammogram Normal Normal [place] Allergies, adverse reactions, alerts Substance Reaction Date Status Type Levofloxacin Unknown 01/27/2019 Active Drug Amlodipine Besylate Unknown 01/27/2019 Active Drug Fluvastatin Sodium Unknown 01/27/2019 Active Drug Phenytoin Sodium Extended Unknown 01/27/2019 Active Drug Metoprolol Unknown 01/27/2019 Active Drug Propranolol Unknown 01/27/2019 Active Drug Meperidine Unknown 01/27/2019 Active Drug Azithromycin Unknown 01/27/2019 Active Drug Simvastatin Unknown 01/27/2019 Active Drug Quinidine Gluconate Unknown 01/27/2019 Active Drug Immunizations Vaccine Route Date Status Pneumococcal Conjugate PCV 13 04/16/2017 Completed Pneumococcal Polysaccharide PPV23 011 Completed Tdap 04/03/2016 Completed Influenza, Unspecified 06/23/2020 Compl eted Influenza, Trivalent, High D ose, Split, Preservative Free, Intramuscular [id number] 07/23/2019 Completed Pfizer SARS-CoV-2 Vaccination [id number] 09/09/2020 Completed Medications Medication Instructions Route Dosage Frequency Start Date Stop Date Indications Status magnesium oxide (MAG-OX) 400 mg (241.3 mg elemental magnesium) tablet Take 1 tablet (400 mg total) by mouth 2 (two) times a day oral 400 mg 0.5 d 2019 Active cholecalciferol (VITAMIN D-3) 5,000 unit capsule 5,000 Units 5000 u Active allopurinoL (ZYLOPRIM) 300 mg tablet Take 1 tablet (300 mg total) by mouth daily oral 300 mg 1 d 2019 Active simvastatin (ZOCOR) 20 mg tablet Take 1 tablet (20 mg total) by mouth nightly oral 20 mg 1 d 2019 Active potassium chloride ER (potassium chloride ER) 10 mEq CR tablet Take 1 tablet/capsul e (10 mEq total) by mouth daily oral 10 meq 1 d [address] (NexIUM) 40 mg capsule Take 1 capsule (40 mg total) by mouth daily oral 40 mg 1 d 2019 Active blood-glucose meter kit 1 each daily miscellan eous 1 {each} 1 d 2019 Active blood glucose diagnostic (glucose blood) strip Check once daily 08/18 05:59 AM Active linaCLOtide (Linzess) 72 mcg capsule 72 mcg 72 ug Active beliMUMAB (BENLYSTA) 120 mg recon soln Give 10mg/kg IV at week 0, 2, and 4 then 10mg/kg every 4 weeks thereafter 2020 Active Ca cmb no.[id number]- J77-llia 120-1,000-10 mg-unit-mg tablet Take by mouth oral Active Synthroid 112 mcg tablet Take 1 tablet by mouth once daily 2020 Active Synthroid 112 mcg tablet Take 1 tablet by mouth once daily 11/01 Aborted lancets misc Check once daily [address] (NexIUM) 40 mg capsule Take 1 capsule (40 mg total) by mouth daily oral 40 mg 1 d 03/06 Aborted allopurinoL (ZYLOPRIM) 300 mg tablet Take 1 tablet (300 mg total) by mouth daily oral 300 mg 1 d 03/06 Aborted Synthroid 112 mcg tablet Take 1 tablet by mouth once daily 2020 Active vitamin E (vitamin E) 400 unit capsule Take 400 Units by mouth daily oral 400 u 1 d Active simvastatin (ZOCOR) 20 mg tablet TAKE 1 TABLET EVERY NIGHT 2020 Active potassium chloride ER 10 mEq CR tablet TAKE 1 TABLET EVERY DAY 2020 Active cyanocobalamin (Vitamin B-12) 100 mcg tablet Take 50 mcg by mouth daily oral 50 ug 1 d Active allopurinoL (ZYLOPRIM) 300 mg tablet TAKE 1 TABLET EVERY DAY 2020 Active Lacto.acidophil us-Bif.animalis 32 billion cell capsule Take 1 capsule by mouth 3 times daily oral 1 {capsul e} Active esomeprazole DR (NexIUM) 40 mg capsule TAKE 1 CAPSULE EVERY DAY 2020 Active Vital Signs Date Vital Result Comment 11/29/2020 09:11 PM Temperature 36.17 Denia Oxygen Saturation 97 % Heart Rate 88 /min Blood Preasure Systolic 110 mm[Hg] Blood Preasure Diastolic 70 mm[Hg] Body Height 154.9 cm Body Weight 82.146 kg Body Mass Index 34.22 kg/m2 07/26/2020 09:03 PM Temperature 36.56 Denia Oxygen Saturation 99 % Heart Rate 98 /min Blood Preasure Systolic 120 mm[Hg] Blood Preasure Diastolic 80 mm[Hg] Body Height 154.9 cm Body Weight 82.328 kg Body Mass Index 34.29 kg/m2 10/14/2019 03:51 PM Temperature 37 Denia Oxygen Saturation 97 % Heart Rate 86 /min Blood Preasure Systolic 132 mm[Hg] Blood Preasure Diastolic 80 mm[Hg] Body Height 156.2 cm Body Weight 76.476 kg Body Mass Index 31.34 kg/m2 11/18/2019 09:09 PM Temperature 37.06 Denia Oxygen Saturation 96 % Heart Rate 84 /min Blood Preasure Systolic 112 mm[Hg] Blood Preasure Diastolic 68 mm[Hg] Body Height 156.2 cm Body Weight 76.839 kg Body Mass Index 31.49 kg/m2 04/21/2020 07:56 PM Temperature 36.56 Denia Oxygen Saturation 98 % Respiratory Rate 14 /min Heart Rate 71 /min Blood Preasure Systolic 108 mm[Hg] Blood Preasure Diastolic 66 mm[Hg] Body Height 156.2 cm Body Weight 81.557 kg Body Mass Index 33.42 kg/m2 04/08/2019 04:17 PM Temperature 36.78 Denia Oxygen Saturation 97 % Heart Rate 79 /min Blood Preasure Systolic 112 mm[Hg] Blood Preasure Diastolic 72 mm[Hg] Body Height 156.2 cm Body Weight 80.105 kg Body Mass Index 32.83 kg/m2 05/13/2019 04:28 PM Temperature 36.89 Denia Oxygen Saturation 97 % Heart Rate 79 /min Blood Preasure Systolic 110 mm[Hg] Blood Preasure Diastolic 74 mm[Hg] Body Height 156.2 cm Body Weight 79.062 kg Body Mass Index 32.4 kg/m2 03/03/2019 03:54 PM Temperature 36.67 Denia Heart Rate 78 /min Blood Preasure Systolic 122 mm[Hg] Blood Preasure Diastolic 78 mm[Hg] Body Height 156.2 cm Body Weight 81.965 kg Body Mass Index 33.59 kg/m2 01/27/2019 02:19 PM Temperature 37.11 Denia Oxygen Saturation 98 % Heart Rate 78 /min Blood Preasure Systolic 118 mm[Hg] Blood Preasure Diastolic 72 mm[Hg] Body Height 156.2 cm Body Weight 84.188 kg Body Mass Index 34.5 kg/m2 09/27/2020 09:10 PM Temperature 36.39 Denia Oxygen Saturation 97 % Heart Rate 88 /min Blood Preasure Systolic 120 mm[Hg] Blood Preasure Diastolic 70 mm[Hg] Body Height 154.9 cm Body Weight 83.87 kg Body Mass Index 34.94 kg/m2 10/18/2020 04:57 PM Temperature 36.33 Denia Blood Preasure Systolic 136 mm[Hg] Blood Preasure Diastolic 80 mm[Hg] Body Height 154.9 cm Body Weight 83.462 kg Body Mass Index 34.77 kg/m2 11/01/2020 04:56 PM Temperature 36.33 Denia Blood Preasure Systolic 134 mm[Hg] Blood Preasure Diastolic 70 mm[Hg] Body Height 154.9 cm Body Weight 83.462 kg Body Mass Index 34.77 kg/m2 12/30/2020 03:20 PM Temperature 36.56 Denia Blood Preasure Systolic 148 mm[Hg] Blood Preasure Diastolic 88 mm[Hg] Body Height 154.9 cm Body Weight 83.462 kg Body Mass Index 34.77 kg/m2 01/16/2021 06:18 PM Temperature 36.5 Denia Oxygen Saturation 98 % Heart Rate 77 /min Blood Preasure Systolic 110 mm[Hg] Blood Preasure Diastolic 70 mm[Hg] Body Height 154.9 cm Body Weight 82.373 kg Body Mass Index 34.33 kg/m2 Procedures Procedure Date Note Body Site Specimen Indications Status SCAN - RADIOLOGY/IMAGING 08/05/2019 Completed HM MAMMOGRAPHY 08/05/2019 Comple faisal HM COLONOSCOPY 10/07/2020 Comple faisal HC ECG 07/14/2019 Completed DEXA SCAN 08/05/2019 Complete d COMPREHENSIVE METABOLIC PANEL 07/27/2020 01:02 PM Completed CBC WITH AUTO DIFFERENTIAL 07/27/2020 01:02 PM Completed CHG GLYCOSYLATED HEMOGLOBIN TEST 07/27/2020 01:02 PM Completed YINA REFLEX TO QUANTITATIVE 07/27/2020 01:02 PM Completed COMPREHENSIVE METABOLIC PANEL 11/11/2019 05:36 PM Completed MAGNESIUM 11/11/2019 05:36 PM Completed TSH REFLEX TO FREE T4 11/11/2019 05:36 PM Completed COMPREHENSIVE METABOLIC PANEL 10/08/2019 05:42 PM Completed MAGNESIUM 10/08/2019 05:42 PM Completed T4, FREE 10/08/2019 05:42 PM Completed TSH 10/08/2019 05:42 PM Completed CBC WITH AUTO DIFFERENTIAL 08/23/2020 02:04 PM Completed FERRITIN 08/23/2020 02:04 PM Completed VITAMIN B12 08/23/2020 02:04 PM Completed IRON PROFILE W/ IBC 08/23/2020 02:04 PM Completed SCAN - RADIOLOGY/IMAGING 05/13/2019 Completed SCAN - RADIOLOGY/IMAGING 07/10/2018 Completed CARDIOLOGY REPORT 11/25/2018 06:00 AM Completed CHG GLYCOSYLATED HEMOGLOBIN TEST 04/07/2020 04:53 PM Completed TSH REFLEX TO FREE T4 04/07/2020 04:53 PM Completed LIPID PANEL 04/07/2020 04:53 PM Completed COMPREHENSIVE METABOLIC PANEL 04/07/2020 04:53 PM Completed MAGNESIUM 04/07/2020 04:53 PM Completed MAGNESIUM 07/22/2020 12:17 PM Completed TSH 07/22/2020 12:17 PM Completed T3, FREE 05/08/2019 08:54 PM Completed T4, FREE 05/08/2019 08:54 PM Completed TSH REFLEX TO FREE T4 05/08/2019 08:54 PM Completed YINA REFLEX TO QUANTITATIVE 05/08/2019 08:54 PM Completed COMPREHENSIVE METABOLIC PANEL 01/16/2019 03:53 PM Completed T4, FREE 01/16/2019 03:53 PM Completed TSH 01/16/2019 03:53 PM Completed COMPREHENSIVE METABOLIC PANEL 02/25/2019 04:12 PM Completed TSH W/REFL FT4 02/25/2019 04:12 PM Completed HI DUPLEX SCAN EXTRACRANIAL,BILAT 04/14/2019 02:43 PM Completed T4, FREE 04/01/2019 03:18 PM Completed TSH REFLEX TO FREE T4 04/01/2019 03:18 PM Completed HM MAMMOGRAPHY 07/10/2018 Comple faisal LIPASE 11/27/2018 04:53 PM Completed MICROBIOLOGY SPECIMEN REPORT (CONVERTED) 11/27/2018 04:45 PM Completed COMPREHENSIVE METABOLIC PANEL 11/27/2018 04:53 PM Completed URINALYSIS AND REFLEX TO MICROSCOPIC AND CULTURE 11/27/2018 04:45 PM Completed CBC WITH AUTO DIFFERENTIAL 11/27/2018 04:53 PM Completed SCAN - RADIOLOGY/IMAGING 10/25/2020 04:18 PM Completed COMPREHENSIVE METABOLIC PANEL 10/18/2020 05:19 PM Completed CRP (ACUTE PHASE) 10/18/2020 05:19 PM Completed LUPUS ANTICOAGULANT 10/18/2020 05:19 PM Completed SCAN - RADIOLOGY/IMAGING 11/01/2020 05:38 PM Completed CBC WITH AUTO DIFFERENTIAL 10/18/2020 05:19 PM Completed ERYTHROCYTE SEDIMENTATION RATE 10/18/2020 05:19 PM Completed URINALYSIS AND REFLEX TO MICROSCOPIC AND CULTURE 10/18/2020 05:19 PM Completed PROTEIN / CREATININE RATIO, URINE, RANDOM 10/18/2020 05:19 PM Completed TB TEST, QUANTIFERON GOLD 11/01/2020 05:58 PM Completed PATHOLOGY REPORT 10/07/2020 Comp leted MISCELLANEOUS LAB TEST 10/18/2020 Completed ACUTE HEPATITIS PANEL 10/18/2020 05:19 PM Completed TPMT ACTIVITY 10/18/2020 05:19 PM Completed TSH 11/26/2020 03:39 PM Completed CHG URINE CULTURE, COLONY COUNT 01/19/2021 08:07 PM Completed CHG URINALYSIS NONAUTO W/O SCOPE 01/19/2021 08:11 PM Completed PROTEIN / CREATININE RATIO, URINE, RANDOM 12/30/2020 03:25 PM Completed URINALYSIS AND REFLEX TO MICROSCOPIC AND CULTURE 12/30/2020 03:25 PM Completed CRP (ACUTE PHASE) 12/30/2020 03:25 PM Completed ERYTHROCYTE SEDIMENTATION RATE 12/30/2020 03:25 PM Completed ANTI-DOUBLE STRANDED DNA ANTIBODIES 12/30/2020 03:25 PM Completed COMPREHENSIVE METABOLIC PANEL 12/30/2020 03:25 PM Completed C3 COMPLEMENT 12/30/2020 03:25 PM Completed C4 COMPLEMENT 12/30/2020 03:25 PM Completed CBC WITH AUTO DIFFERENTIAL 12/30/2020 03:25 PM Completed CHG URINE CULTURE, COLONY COUNT 01/12/2021 07:35 PM Completed CHG URINE CULTURE, COLONY COUNT 01/12/2021 07:41 PM Completed TSH 01/12/2021 07:41 PM Completed CHG URINALYSIS NONAUTO W/O SCOPE 01/12/2021 07:36 PM Completed CBC WITH AUTO DIFFERENTIAL 01/12/2021 07:41 PM Completed COMPREHENSIVE METABOLIC PANEL 01/12/2021 07:41 PM Completed Family History Father () Problem Date Age at Onset Comment Bone cancer Mother () Problem Date Age at Onset Comment Heart disease Pancreatitis Father () Problem Date Age at Onset Comment Bone cancer Mother () Problem Date Age at Onset Comment Heart disease Pancreatitis Social History Element Description Date Comment Tobacco smoking status WYIS Never smoker 07/14/2019 Sex Assigned At Not on file 1950 Tobacco use and exposure Never used 07/14/2019 History SDOH Alcohol Frequency 1 11/29/2020 History SDOH Alcohol Binge 1 11/29/2020 Alcohol intake Lifetime non-drinker (finding) 07/14/20 19 Tobacco smoking status [facility] Unknown if ever smoked Encounters Type CPT Code Date Location Provider Indication s Orders Only 9 [facility] [place] [facility] Health Information Management [address] [place] [address] Purnima Rosario 08/05/2019, Orders Only, [facility] Health Information Management, [address] [place] [address], , Purnima Rosario PA, [address] [place] [address] [place] [address], , Telephone [address], [address] [place] [address] Purnima Rosario Medical record status Documentation [address], [address], [place] [address] Purnima Rosario 08/07/2019, Documentation, [facility], [address], [address], [place] [address], , Purnima Rosario PA, [address], [place] [address], , Travel 0 10/14/2019, Travel Orders Only 1 [facility] [address], [address], [place] [address] Historical Provider 10/11/2020, Orders Only, [facility], [address], [address], [place] [address], , Provider, Garrett, , [address] [place] [address], Orders Only 1 [facility] [address] [place] [address] Anika Cabrera 11/02/2020, Orders Only, [facility], [address] [place] [phone], , Anika Cabrera PA, [address] [place] [address], , Orders Only 0 [facility] [address], [address], [place] [address] Purnima Rosario 10/09/2019, Orders Only, [facility], [address], [address], [place] [address], , Purnima Rosario PA, [address], [place] [address], , Orders Only 9 [facility] [address], [address], [place] [address] Historical Provider 07/14/2019, Orders Only, [facility], [address], [address], [place] [address], , Provider, Historical, MD, [address] [place] [address], Travel 9 07/14/2019, Travel Office Visit 1 02:53 PM - 1 03:[address], [address] [address] Purnima Rosario [phone] : null [phone] : null Obesity (BMI 30-39.9) (Prima ry Dx); BMI 34.0-34.9,adult Documentation [address], [address], [place] [address] Purnima Rosario 08/17/2019, Documentation, [facility], [address] [place] [address], [address], [place] [address], , Purnima Rosario PA, [address] [place] [address] [address], [place] [address], , Orders Only [address], [address], [place] [address] Krysten Nino [id number] : null Anemia, unspecified type (Pr imary Dx) Travel 0 11/18/2019, Travel Office Visit [id number] 0 02:56 PM - 0 03:[address], [address] [address] Purnima Rosario [phone] : null [id number] : null [id number] : null [id number] : null [id number] : null [id number] : null [id number] : null [id number] : null [id number] : null [id number] : null [id number] : null [id number] : null Mixed hyperlipidemia (Primar y Dx); Hyperglycemia; Stage 3 chronic kidney disease due to benign hypertension; Arthralgia, unspecified joint; Positive YINA (antinuclear antibody); Moderate episode of recurrent major depressive disorder (CMS/HCC); Obesity (BMI 30-39.9); Stage 3a chronic kidney disease; Chronic gout of multiple sites, unspecified cause; Acquired hypothyroidism; Hypomagnesemia; Lupus (CMS/HCC) Office Visit [id number] 0 09:27 AM - 0 10:[address], [address] [address] Purnima Rosario [id number] : null [id number] : null [id number] : null [id number] : null [id number] : null [id number] : null [id number] : null [id number] : null [id number] : null [id number] : null [id number] : null [id number] : null [id number] : null [id number] : null [id number] : null Annual physical exam (Primar y Dx); Acquired hypothyroidism; Hypomagnesemia; Chronic kidney disease, stage 3 (CMS/HCC); Stage 3 chronic kidney disease due to benign hypertension ([facility]/HCC); Moderate episode of recurrent major depressive disorder ([facility]); Lupus [facility] [facility]); Mixed hyperlipidemia; SAPNA on CPAP; Gastroesophageal reflux disease without esophagitis; Vitamin D deficiency; Chronic gout of multiple sites, unspecified cause; Obesity (BMI 30-39.9); Hyperglycemia; BMI 31.0-31.9,adult Telephone [address], [address] [address] Purnima Rosario [phone] : null [phone] : null 09/30/2019, Telephone, [facility], [address] [place] [address], [address] [address], , Purnima Rosario PA, [address] [place] [address] [address] [place] [address], , Orders Only [address], [address], [place] [address] Krysten Nino [phone] : null Anemia, unspecified type (Pr imary Dx) Orders Only 9 [facility] Health Information Management [address] [place] [address] Provider Scanning 05/13/2019, Orders Only, [facility] Health Information Management, [address] [place] [address], , Scanning, Provider Orders Only 8 [facility] Health Information Management [address] [place] [address] Provider Scanning 07/10/2018, Orders Only, [facility] Health Information Management, [address] [place] [address], , Scanning, Provider Travel 9 01/27/2019, Travel Office Visit [id number] 0 02:45 PM - 0 03:[address], [address], [place] [address] Purnima Rosario [phone] : null [phone] : null [id number] : null [id number] : null [id number] : null [id number] : null [id number] : null [phone] : null Acquired hypothyroidism (Lesa sumeet Dx); Stage 3 chronic kidney disease due to benign hypertension (CMS/HCC); Chronic gout of multiple sites, unspecified cause; Mixed hyperlipidemia; Hyperglycemia; Hypomagnesemia; Obesity (BMI 30-39.9); BMI 31.0-31.9,adult Orders Only 9 [facility] Historical Provider 11/25/2018, Orders Only, [facility], Provider, MD Garrett, [address] [place], [place] [id number], Travel 9 05/13/2019, Travel Travel 9 04/08/2019, Travel Office Visit [id number] 0 02:36 PM - 0 03:[address], [address], [place] [address] Purnima Rosario [id number] : null [id number] : null [id number] : null [id number] : null [id number] : null [id number] : null [id number] : null [id number] : null [id number] : null [id number] : null [id number] : null [id number] : null [id number] : null [phone] : null Medicare annual wellness vis it, subsequent (Primary Dx); Acquired hypothyroidism; Hypomagnesemia; SAPNA on CPAP; Moderate episode of recurrent major depressive disorder (CMS/HCC); BMI 33.0-33.9,adult; Mixed hyperlipidemia; Hyperglycemia; Chronic gout of multiple sites, unspecified cause; Stage 3 chronic kidney disease due to benign hypertension (CMS/HCC); Chronic kidney disease, stage 3 (CMS/HCC); Vitamin D deficiency; Obesity (BMI 30-39.9); Gastroesophageal reflux disease without esophagitis Travel 9 03/03/2019, Travel Office Visit [id number] 9 10:42 AM - 9 11:[address], [address] [id number] Purnima Rosario [id number] : null [id number] : null [id number] : null [id number] : null [id number] : null [id number] : null Bruit of left carotid artery (Primary Dx); Dizziness; Moderate episode of recurrent major depressive disorder (CMS/HCC); Lupus (CMS/HCC); Acquired hypothyroidism; BMI 32.0-32.9,adult Orders Only [address], [address], [place] [address] Purnima Rosario [phone] : null Acquired hypothyroidism (Lesa sumeet Dx) Office Visit [id number] 9 11:15 AM - 9 12:[address], [address], [place] [address] Purnima Rosario [phone] : null [id number] : null [id number] : null [phone] : null [id number] : null Acquired hypothyroidism (Lesa sumeet Dx); Positive YINA (antinuclear antibody); Fall, initial encounter; Obesity (BMI 30-39.9); BMI 32.0-32.9,adult Orders Only [address], [address], [place] [address] Purnima Rosario 01/16/2019, Orders Only, [facility], [address], [address], [place] [address], , Purnima Rosario PA, [facility] [facility] [address], [place] [address], , Orders Only [address], [address], [place] [address] Purnima Rosario 02/25/2019, Orders Only, [facility], [address] [place] [address] Road, [address], [place] [address], , Purnima Rosario PA, [facility] [facility] [address], [place] [address], , Hospital Encounter 9 09:41 AM - 9 09:41 AM [facility] INTERIM Purnima Rosario [phone] : null [phone] : null Bruit of left carotid artery ; Dizziness Office Visit [id number] 9 10:29 AM - 9 11:[address], [address], [place] [address] Purnima Rosario [phone] : null [id number] : null [id number] : null [id number] : null [id number] : null Acquired hypothyroidism (Lesa sumeet Dx); Moderate episode of recurrent major depressive disorder (CMS/HCC); Hyperglycemia; Obesity (BMI 30-39.9); BMI 33.0-33.9,adult Office Visit [id number] 9 08:48 AM - 9 09:[address], [address], [place] [address] Purnima Rosario [id number] : null [id number] : null [id number] : null [id number] : null [id number] : null [id number] : null [id number] : null [id number] : null [id number] : null [phone] : null [id number] : null [id number] : null Chronic kidney disease, stag e 3 (CMS/HCC) (Primary Dx); Moderate episode of recurrent major depressive disorder (CMS/HCC); Stage 3 chronic kidney disease due to benign hypertension (CMS/HCC); BMI 34.0-34.9,adult; Obesity (BMI 30-39.9); Mixed hyperlipidemia; Hyperglycemia; Acquired hypothyroidism; Vitamin D deficiency; Gastroesophageal reflux disease without esophagitis; Menopause; SAPNA on CPAP Hospital Encounter 9 09:47 AM - 9 01:13 PM [facility] 11/27/2018, [facility], [facility], , [facility] [place], , [address] [place] [address], , Telephone 1 [facility] [address] [place] [address] Blanca Dutta IV approved Office Visit [id number] 1 10:18 AM - 1 11:15 AM [facility] [address] [place] [address] Anika Cabrera [phone] : null [id number] : null [id number] : null [id number] : null Lupus (CMS/HCC) (Primary Dx) ; Polyarthralgia; detention current use of therapeutic drug; Fatigue, unspecified type Hospital Encounter 1 10:18 AM [facility] [address] [place] [address] 10/25/2020, [facility], Radiology Office Visit [id number] 1 10:37 AM - 1 11:50 AM [facility] [address] [place] [address] Anika Cabrear [phone] : null [phone] : null Lupus (CMS/HCC) (Primary Dx) ; Screening-pulmonary TB Orders Only 1 [facility] [address] [facility], [address], [place] [address] Adin Hummel 10/26/2020, Orders Only, [facility] Tele[facility] 1 [facility] [address] [place] [address] Anika Cabrera 11/01/2020, Telephone, Rheum atologyRick Rachael Elizabeth, [place] Office Visit [id number] 1 02:53 PM - 1 03:[address], [place] [address] Purnima Rosario [phone] : null [id number] : null [id number] : null [id number] : null [id number] : null [id number] : null [id number] : null [id number] : null [id number] : null [id number] : null [phone] : null Lupus (CMS/HCC) (Primary Dx) ; Arthralgia, unspecified joint; SAPNA on CPAP; Positive YINA (antinuclear antibody); Stage 3 chronic kidney disease due to benign hypertension; Stage 3a chronic kidney disease; Obesity (BMI 30-39.9); Chronic gout of multiple sites, unspecified cause; Acquired hypothyroidism; Anemia, unspecified type; BMI 34.0-34.9,adult Telephone 1 [facility] [address] [place] [address] Anika Cabrera 10/31/2020, Telephone, Rheum atology, Anika Cabrera PA Office Visit [id number] 1 02:53 PM - 1 03:[address], [address] [address] Purnima Rosario [phone] : null [id number] : null [id number] : null [id number] : null [id number] : null [id number] : null [id number] : null [id number] : null [id number] : null [id number] : null [id number] : null [id number] : null [id number] : null [id number] : null Annual physical exam (Primar y Dx); Lupus (CMS/HCC); SAPNA on CPAP; Gastroesophageal reflux disease without esophagitis; Vitamin D deficiency; Stage 3a chronic kidney disease; Stage 3 chronic kidney disease due to benign hypertension; Chronic gout of multiple sites, unspecified cause; Acquired hypothyroidism; Hyperglycemia; Mixed hyperlipidemia; Hypomagnesemia; BMI 34.0-34.9,adult; Obesity (BMI 30-39.9) Office Visit [id number] 1 10:18 AM - 1 11:[address] [address] Anika Bashir [facility] [id number] : null [id number] : null [id number] : null [id number] : null Lupus (CMS/HCC) (Primary Dx) ; Polyarthralgia; detention current use of therapeutic drug; Fatigue, unspecified type Telephone 1 [facility] [address] [place] [address] Anika Bashir [facility] 10/31/2020, Telephone, [facility], [address] [place] [address], , Anika Diaz PA, [address] [place] [address], , Telephone 0 [facility] [address] [place] [address], [address] [place] [address] Purnima Rosario [id number] : null 08/17/2020, Telephone, [facility], [address] [place] [address], [address], [place] [address], , Purnima Rosario PA, [address] [place] [address] [place] [address], , Orders Only 1 [facility] [address] [place] [address] Anika Diaz 11/02/2020, Orders Only, [facility], [address] [place] [address], , Anika Diaz PA, [address] [place] [address], , Office Visit [id number] 1 10:37 AM - 1 11:50 AM [facility] [address] [place] [address] Anika Diaz [id number] : null [phone] : null Lupus (CMS/HCC) (Primary Dx) ; Screening-pulmonary TB Clinical Support 1 03:04 PM - 1 04:[address], [address] [address] [id number] : null Frequency of urination (Prim jerilyn Dx) Office Visit [id number] 1 10:09 AM - 1 10:20 AM [facility] [address] [place] [address] Anika Diaz [id number] : null [id number] : null Lupus (CMS/HCC) (Primary Dx) ; 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 Office Visit [id number] 1 01:11 PM - 1 01:[address], [address] [place] [address] Purnima Rosario [id number] : null [id number] : null [id number] : null Acute cystitis without hemat uria (Primary Dx); Obesity (BMI 30-39.9); BMI 33.0-33.9,adult Office Visit [id number] 1 01:55 PM - 1 02:[address], [address] [place] [address] Purnima Rosario [id number] : null [id number] : null [id number] : null [id number] : null [id number] : null [id number] : null Frequency of urination (Prim jerilyn Dx); Acquired hypothyroidism; Stage 3 chronic kidney disease due to benign hypertension; Stage 3a chronic kidney disease; BMI 33.0-33.9,adult; Obesity (BMI 30-39.9) Plan of Care Purnima Rosario Date: 03/07/2021 06:57 AM 1. 11/18/2020 - Lipid panel Lipid panel, Lab, Routine, Mixed hyperlipidemia, Expected: 11/18/2020, Expires: 11/18/2020 1. 1999 - Zoster Vaccines 2. 08/05/2020 - Breast Cancer Screening-Mammogram 3. 04/21/2021 - Regular Well Visit/Exam 4. 08/05/2021 - Osteoporosis Screening-Bone Density Scan 5. 11/29/2021 - Depression Screening-PHQ 6. 11/29/2021 - Fall Risk Assessment 7. 04/03/2026 - DTaP/Tdap/Td Vaccine (2 - Td) 8. 10/07/2030 - Colon Cancer Screening-Colonoscopy 1. 07/04/2019 - TSH reflex to free T4 TSH reflex to free T4, Lab, Routine, Acquired hypothyroidism, Expected: 07/04/2019, Expires: 04/03/2020 Purnima Rosario Date: 03/07/2021 06:57 AM 1. 01/27/2019 - TSH reflex to free T4 TSH reflex to free T4, Lab, Routine, Acquired hypothyroidism, Expected: 01/27/2019, Expires: 01/28/2020 2. 01/27/2019 - Comprehensive metabolic panel Comprehensive metabolic panel, Lab, Routine, Stage 3 chronic kidney disease due to benign hypertension (CMS/HCC), Expected: 01/27/2019, Expires: 01/28/2020 Purnima Rosario Date: 03/07/2021 06:57 AM 1. 10/18/2020 - US Hand Complete US Hand Complete, Imaging, Schedule Routine, Read Routine (OP Routine), Lupus (CMS/HCC), Polyarthralgia, Expected: 10/18/2020, Expires: 10/18/2021 2. 10/18/2020 - XR Foot Left 3 or More Views XR Foot Left 3 or More Views, Imaging, Schedule Routine, Read Routine (OP Routine), Lupus (CMS/HCC), Polyarthralgia, Expected: 10/18/2020, Expires: 10/18/2021 3. 10/18/2020 - XR Foot Right 3 or More Views XR Foot Right 3 or More Views, Imaging, Schedule Routine, Read Routine (OP Routine), Lupus (CMS/HCC), Polyarthralgia, Expected: 10/18/2020, Expires: 10/18/2021 4. 10/18/2020 - XR Hand Left 2 Views XR Hand Left 2 Views, Imaging, Schedule Routine, Read Routine (OP Routine), Lupus (CMS/HCC), Polyarthralgia, Expected: 10/18/2020, Expires: 10/18/2021 5. 10/18/2020 - XR Hand Right 2 Views XR Hand Right 2 Views, Imaging, Schedule Routine, Read Routine (OP Routine), Lupus (CMS/HCC), Polyarthralgia, Expected: 10/18/2020, Expires: 10/18/2021 6. 10/18/2020 - XR Chest Pa Lateral 2 Views XR Chest Pa Lateral 2 Views, Imaging, Schedule Routine, Read Routine (OP Routine), Lupus (CMS/HCC),Polyarthralgia, Expected: 10/18/2020, Expires: 10/18/2021 7. 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 - Lupus Anticoagulant Comp Lupus Anticoagulant Comp, Lab, Routine, Lupus (CMS/HCC), 1 Occurrences starting 10/18/2020 until 10/18/2021 9. 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 1999 - Zoster Vaccines 2. 08/05/2020 - Breast Cancer Screening-Mammogram 3. 09/30/2020 - Covid-19 Vaccine (2 - Pfizer 2-dose series) 4. 08/05/2021 - Osteoporosis Screening-Bone Density Scan 5. 11/29/2021 - Fall Risk Assessment 6. 11/29/2021 - Regular Well Visit/Exam 7. 01/16/2022 - Depression Screening-PHQ 8. 10/07/2025 - Colon Cancer Screening-Colonoscopy 9. 04/03/2026 - DTaP/Tdap/Td Vaccine (2 - Td or Tdap) Advance Directives Directive Description Verification Date Supporting Document(s) ADVANCE DIRECTIVE 01/05/2013
--- OUTSIDE RECORDS SUMMARY | 2024-11-16 21:35 | XMS_ITS | Encounter Summary ---
Author Organization [facility] Healthcare Address [address] [place] [address] Care Team Providers Care Structural Analyst Name Role Phone Purnima Rosario Primary Care Provider [phone] Niko Ledezma MD Unavailable [phone] Jose Iniguez MD Unavailable [phone] Jacque Pederson MA Unavailable Reason for Visit * Reason Onset Date Comments Med Refill 11/04/2024 Encounter Details Date Type Department Care Team (Late st Contact Info) Description 11/04/2024 Telephone [facility] Family Medicine [address] [facility] [address] [place] [address] Purnima Rosario PA [address] [address] Med Refill Social History Tobacco Use Types Packs/Day Years Used Date Smoking Tobacco: Never Passive Smoke Exposure: Past Smokeless Tobacco: Never Alcohol Use Standard Drinks/Week Comments Never 0 (1 standard drink = 0.6 oz pur e alcohol) [facility] Utilities Answer Date Recorded In the [...] often do you attend chur ch or jehovah's witness services? 1 to 4 times per year 09/28/2024 Do you belong to any clubs o r organizations such as mu-ism groups, unions, fraternal or athletic groups, or [...] any time in the past 12 m [facility], were you homeless or living in a skilled nursing (including now)? No 09/28/2024 Personal Safety Answer Date Recorded Have you ever been in or are you currently in a harmful physical or emotional relationship or is someone making you feel afraid or unsafe? 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 Patients PT therapist called to state that the patient is stating she is in severe pain. If needed, Pharmacy(s) medication(s) should be sent to: na Additional Comments: Warm transferred to back line Does message need to be routed? Yes-FYI Only Reason for Warm Transfer: Provider to Provider Calls Practice Accepted the Warm Transfer? Yes Additional Comments If YES above, and no barriers. PIECE REPAIRER documented in this encounter Plan of Treatment Not on file documented as of this encounter Visit Diagnoses Not on filedocumented in this encounter Care Teams Structural Analyst Relationship Specialty Start Date End Date Purnima Rosario PA [address] [place] [address] PCP - General 11/27/18 Niko Ledezma MD [address] [place] [address] Consulting Physician Rheumatology 09/30/20 Jose Iniguez MD [address] [facility] [address] [place] [address] Consulting Physician Family Medicine 10/23/24 Jacque Pederson, RACHNA [address] [place] [address] [address] [place] [address] ACO Care Vibrating Screen Operator 11/06/24 11/09/24 documented as of this encounter
[2024-11-16] MEDS: NOREPINEPHRINE 8 MG/D5W 250 ML 8 MG/250 ML BAG 56.25 MG IV CONT (21:48)
[2024-11-16] MEDS: SODIUM BICARBONATE 8.4% 150 MEQ in DEXTROSE 5% 1,000 ML 950 ML 500 MEQ IV CONT (21:49)
[2024-11-16] MEDS: SODIUM BICARBONATE 8.4% 50 MEQ/50 ML SYRINGE IV PUSH ×2 (21:49→23:08)
--- NOTE | 2024-11-16 22:44 | PC.NURSE ---
Pt arrived to ED at 1922 CPR in progress on arrival assisted ventilation by BVM. SEe code blue sheet for further detail. Pt was intubated [place] [address] Mai- ET tube 21 at the lip. Placement verified by CXR. Bilateral breath sounds.
[2024-11-16 22:45] LABS: Albumin Level 1.8 g/dL (3.5-5.1); Alkaline Phosphatase 82 U/L (38-126); Anion Gap 35 mmol/L (4-12); Bilirubin,Total 0.9 mg/dL (0.2-1.3); Blood Urea Nitrogen 35 mg/dL (7-17); Calcium 6.8 mg/dL (8.4-10.2); Carbon Dioxide 10 mmol/L (22-30); Chloride 99 mmol/L (98-107); Estimated Glomerular Filt Rate 20; Glucose 370 mg/dL (65-110); Potassium 4.6 mmol/L (3.4-5.0); Sodium 144 mmol/L (137-145)
[2024-11-16 23:00] LABS: Alanine Aminotransferase 273 U/L (6-35)
[2024-11-16 23:20] LABS: Aspartate Amino Transferase 873 U/L (14-36)
[2024-11-16] MEDS: MORPHINE SULFATE (*CRX) 4 MG/ML INJ 5 MG IV PUSH (23:34)
[2024-11-16] MEDS: LORazepam INJ (*CRX) 2 MG/ML VIAL IV PUSH (23:35)
[2024-11-16] MEDS: GLYCOPYRROLATE INJ (*SP) 0.2 MG/ML VIAL IV PUSH (23:45)
[2024-11-17 00:06] VITALS: PULSE 0
[2024-11-17 00:09] VITALS: O2SAT 0
[2024-11-17] MEDS: LORazepam INJ (*CRX) 2 MG/ML VIAL IV PUSH (00:32)
[2024-11-17] MEDS: MORPHINE SULFATE (*CRX) 4 MG/ML INJ 5 MG IV PUSH (00:33)
[2024-11-17 00:35] VITALS: PULSE 100
[2024-11-17 02:48] VITALS: BP 0/0; PULSE 0; RESP 0; O2SAT 0
== END 2024-11-17 02:51 | disposition expired ==
PROVIDERS: Emergency Provider Student in an Organized Health Care Education/Training Program
DX: I46.9 Cardiac arrest, cause unspecified (principal); A41.9 Sepsis, unspecified organism; R65.21 Severe sepsis with septic shock; I74.9 Embolism and thrombosis of unspecified artery; I26.99 Other pulmonary embolism without acute cor pulmonale; K63.1 Perforation of intestine (nontraumatic); K55.9 Vascular disorder of intestine, unspecified; D73.5 Infarction of spleen; K91.72 Accidental puncture and laceration of a digestive system organ or structure during other procedure; M96.A1 Fracture of sternum associated with chest compression and cardiopulmonary resuscitation; M96.A3 Multiple fractures of ribs associated with chest compression and cardiopulmonary resuscitation; T17.918A Gastric contents in respiratory tract, part unspecified causing other injury, initial encounter; M32.9 Systemic lupus erythematosus, unspecified; I10 Essential (primary) hypertension; I48.91 Unspecified atrial fibrillation; I45.10 Unspecified right bundle-branch block; R94.31 Abnormal electrocardiogram [ECG] [EKG]; W44.8XXA Other foreign body entering into or through a natural orifice, initial encounter
CPT/HCPCS: 31500; 36415; 36556; 36600; 36680; 70450; 71275; 74177; 80053; 82375; 82805; 83050; 83690; 84484; 85018; 85025; 85610; 85730; 86850; 86900; 86901; 92950; 93005; 96365; 96366; 96375; 96376; 99291; C1751; J0171; J1596; J2060; J2270; J3010; J7030; J7070; J7120; Q9967